=== PATIENT | male | born 1960 | race Caucasian/White ===

== ENCOUNTER 2021-07-30 21:15 | Observation (INO) | payer SELFPAY ==
[2021-07-30 21:21] VITALS: BP 163/103; PULSE 101; RESP 22; TEMP 37; O2SAT 95; BMI 44.1
--- NOTE | 2021-07-30 22:01 | XRR_ITS ---
PROCEDURE INFORMATION: Exam: XR Chest Exam date and time: 07/30/2021 10:01 PM Age: 61 years old Clinical indication: Sternal or substernal pain; Patient HX: Chest pain x today TECHNIQUE: Imaging protocol: XR of the chest. Views: 1 view. COMPARISON: CT Chest/Abdomen/Pelvis wo IV 02/21/2014 5:30:17 PM FINDINGS: Lungs: Lungs are clear bilaterally. Pleural spaces: No pleural effusion. No pneumothorax. Heart/Mediastinum: Mediastinal contours are unremarkable. Stable mild enlargement of the cardiac silhouette. Bones/joints: Unremarkable for age. XR/XR chest 1V portable [id number] IMPRESSION: 1. No acute cardiopulmonary process. 2. Incidental/nonacute findings are listed in the report.
--- NOTE | 2021-07-30 22:01 | ECG_ITS ---
[facility] Test Date: 2021-07-30 Pat Name: Jose Canales Department: Room: Gender: Male Clinical Documentation Developer: : 1960 Requested By: Seth Reis Order Number: [id number] Osmel MD: Robinson Britt M.D. Measurements Intervals [place] Rate: 88 P: 33 [place]: 163 QRS: -36 QRSD: 135 T: 30 QT: 360 QTc: 437 Interpretive Statements SINUS RHYTHM WITH SINUS ARRHYTHMIA INDETERMINATE AXIS RIGHT BUNDLE BRANCH BLOCK [120+ ms QRS DURATION, UPRIGHT V1, 40+ ms S IN I/aVL/V4/V5/V6] No previous ECG available for comparison Electronically Signed On 07-31-2021 21:27:32 CDT by Robinson Britt M.D. [email or web address] Biomedicalfranklin county memorial hospitalFanbasesouthwest general health center.[employer]/store/Om/[id number]
[2021-07-30] MEDS: aspirin 325 mg EC Tablet PO (22:30)
--- NOTE | 2021-07-30 23:20 | USR_ITS ---
PROCEDURE INFORMATION: Exam: US Abdomen, Limited; Right Upper Quadrant Exam date and time: 07/30/2021 11:20 PM Age: 61 years old Clinical indication: Abdominal pain; Additional info: Evaluate for gallbaldder disease TECHNIQUE: Imaging protocol: US abdomen. Real time ultrasound with image documentation. Limited exam focused on the right upper quadrant. COMPARISON: CT Chest/Abdomen/Pelvis wo IV 02/21/2014 5:30 PM FINDINGS: Liver: Slight inhomogeneous and increased echogenicity of the liver may indicate fatty infiltration. The liver appears borderline/mildly enlarged, with right lobe length of about 19 -20 cm. No definite/significant focal hepatic abnormality. Gallbladder: Moderate amount of nonshadowing echogenic material within the gallbladder, presumably biliary sludge. There are several more echogenic densities within the gallbladder, with probable faint acoustic shadowing, suspicious for small gallstones. The gallbladder is upper limit of normal in size, with transverse diameter up to about 4 cm. No gallbladder wall thickening or pericholecystic fluid. Common bile duct: The common bile duct is not well visualized at this time. A structure felt to represent the bile duct is mildly dilated, measuring up to 9 mm. No visible common duct stone by ultrasound. Correlation with laboratory/bilirubin levels may be helpful to determine if there is any significant biliary obstruction. Pancreas: Visible pancreas unremarkable. Much of the pancreas is obscured by bowel gas, limiting evaluation. Right kidney: Images of the right kidney show no hydronephrosis. US/US gall bladder [id number] IMPRESSION: 1. Probable cholelithiasis, with a moderate amount of biliary sludge in the gallbladder. See additional details above. 2. Suspected mild biliary tree dilation, possible common duct measures up to 9 mm. 3. Other findings discussed above.
[2021-07-30 23:21] LABS: Basophils % 0.4 %; Eosinophils # 0.1 10^3/uL (0.0-0.8); Eosinophils % 0.9 %; Hematocrit 48.5 % (42.0-52.0); Hemoglobin 16.7 g/dL (11.7-16.6); Lymphocytes # 1.9 10^3/uL (0.8-4.8); Lymphocytes % 18.4 %; Mean Corpuscular HGB Conc 34.4 g/dL (30.0-36.0); Mean Corpuscular Hemoglobin 32.1 pg (28.0-34.0); Mean Corpuscular Volume 93.3 fl (80-94); Mean Platelet Volume 10.9 fL (7.4-10.4); Monocytes # 0.7 10^3/uL (0.2-0.9); Monocytes % 6.5 %; Neutrophils # 7.72 10^3/uL (1.8-7.7); Nucleated Red Blood Cells % 0 %; Platelet Count 213 10^3/cmm (130-400); Red Cell Distribution Width 13.2 % (12.1-15.1); White Blood Count 10.6 10^3/uL (4.0-10.0)
[2021-07-30 23:38] LABS: Troponin(5th) Baseline 11 ng/L (0-15)
[2021-07-30 23:47] LABS: Anion Gap 17.5 (5-19); Blood Urea Nitrogen 19 mg/dL (8-23); Calcium 9.5 mg/dL (8.5-10.5); Carbon Dioxide 27 mmol/L (22-29); Chloride 97 mmol/L (98-107); Creatinine Clr Calc Pharmacy 146.8033; Glomerular Filtration Rate 114.6 mL/min (90-130); Glucose 121 mg/dL (65-115); Osmolality Calculated 288 mOsm/kg (285-295); Potassium 4.5 mmol/L (3.5-5.1); Sodium 137 mmol/L (136-145)
[2021-07-31] VITALS (8 sets, daily range): BP systolic 119–158; BP diastolic 79–92; PULSE 77–98; RESP 16–20; TEMP 36.5; O2SAT 92–96; BMI 44.2
--- NOTE | 2021-07-31 00:11 | W.ED.GENADLT ---
HPI - General Adult General: Chief complaint: Abdominal Pain Stated complaint: abd, back pain Time Seen by Provider: 07/30/21 22:00 History of Present Illness: HPI narrative: Patient a 61-year-old male with history of hypertension, diabetes, smoking who presents the emergency room for evaluation of acute onset right upper quadrant dull pain radiating to his left upper quadrant x4 hours. Patient first noticed pain after drinking a milkshake an hour earlier. Patient reports the pain is cramping in nature. Denies any associated chest pain, shortness breath, exertional fatigue, pleuritic chest pain, nausea/vomiting, fever/chills, other abdominal complaints or complaints. No prior history of cardiac issues. Onset: 4 hrs ago Duration:4 hrs Location: home Severity:moderate Review of Systems Narrative: Constitutional: No fever, no chills. HEENT: No vision changes CV: No chest pain, no palpitations PULM: no cough, no dyspnea. GI: +midepigastric abdominal pain, no N/V/D. : No dysuria MSKEL: No muscle pain SKIN: No new rashes, no lesions. NEURO: No headache, no focal weakness. HEME: No visible bruises PSYCH: Normal mood PFSH ED PFSH: Social History (Updated 07/31/21 @ 03:17 by Mable Chavarria RN) Smoking and tobacco status: current every day smoker Physical Exam Narrative: EXAM NARRATIVE: Head: Atraumatic Eyes: PERRL, conjunctiva without injection ENT: Mucous membrane moist NECK: Supple, ROM intact LUNGS: LCTAB, no crackles/rhonchi CV: RRR ABDOMEN: No focal TTP. NO guarding rebound, guarding, rigidity. No CVA tenderness to percussion. Neg Sandhu/Neg McBurney's point tenderness, no suprabupic tenderness to palpation. EXTREMITY: Normal ROM SKIN: No rash or erythema NEURO: Awake and alert, no focal motor deficits PSYCH: Normal mood and affect Course Vital Signs: Vital signs: Vital Signs Temperature 97.7 F 07/31/21 02:36 Pulse Rate 77 07/31/21 04:06 Respiratory Rate 20 H 07/31/21 02:37 Blood Pressure 157/79 07/31/21 02:37 Pulse Oximetry 96 07/31/21 02:37 MDM - General Adult MDM Narrative: Medical decision making narrative: 61-year-old male with history of hypertension, smoking, DM presents emergency room with acute onset of right-sided abdominal pain rating going to the left. EKG showing regular sinus rhythm at HT of [88]. RBBB. Normal axis. No ST elevations/depressions to suggest coronary occlusion. Normal MT, QRS, QT intervals. Work-up today including troponin within normal limit. Dimer within normal limit. X-ray chest not show any focal findings. Given heart score 4 and no prior workup, patient will be admitted to hospital for angina equivalent rule out. US showed cholithasis and possible CBD enlargement. Will need MRCP for further evaluation. Disposition: Admission for observation. Lab Data: Labs: Lab Results 07/30/21 07/30/21 07/30/21 23:18 23:18 23:18 WBC 10.6 10^3/uL H 10 ^3/uL (4.0-10.0) RBC 5.20 10^6/uL 10^6 /uL (4.1-5.3) Hgb 16.7 g/dL H g/dL (11.7-16.6) Hct 48.5 % % (42.0-52.0) MCV 93.3 fl fl (80-94) MCH 32.1 pg pg (28.0-34.0) MCHC 34.4 g/dL g/dL (30.0-36.0) RDW 13.2 % % (12.1-15.1) Plt Count 213 10^3/cmm 10^3 /cmm (130-400) MPV 10.9 fL H fL (7.4-10.4) Neut % (Auto) 73.0 % % Lymph % (Auto) 18.4 % % [place] % (Auto) 6.5 % % Eos % (Auto) 0.9 % % Baso % (Auto) 0.4 % % Neut # (Auto) 7.72 10^3/uL H 10 ^3/uL (1.8-7.7) Lymph # (Auto) 1.9 10^3/uL 10^3/ uL (0.8-4.8) [place] # (Auto) 0.7 10^3/uL 10^3/ uL (0.2-0.9) Eos # (Auto) 0.1 10^3/uL 10^3/ uL (0.0-0.8) Baso # (Auto) 0.0 10^3/uL 10^3/ uL (0.0-0.1) Nucleated RBC % (a uto) 0 % % Nucleated RBCs # 0.0 /100WBC /100W BC D-Dimer Sodium 137 mmol/L mmol/L (136-145) Potassium 4.5 mmol/L mmol/L (3.5-5.1) Chloride 97 mmol/L L mmol/ L (98-107) Carbon Dioxide 27 mmol/L mmol/L (22-29) Anion Gap 17.5 (5-19) BUN 19 mg/dL mg/dL (8-23) Creatinine 0.7 mg/dL mg/dL (0.7-1.2) GFR Calculation 114.6 mL/min mL/m in (90-130) Glucose 121 mg/dL H mg/dL (65-115) Calculated Osmolal ity 288 mOsm/kg mOsm/ kg (285-295) Calcium 9.5 mg/dL mg/dL (8.5-10.5) Troponin T Baselin e 11 ng/L ng/L (0-15) Troponin T 120 Min ely [place] Troponin T 07/30/21 07/31/21 23:27 01:05 WBC RBC Hgb Hct MCV MCH MCHC RDW Plt Count MPV Neut % (Auto) Lymph % (Auto) [place] % (Auto) Eos % (Auto) Baso % (Auto) Neut # (Auto) Lymph # (Auto) [place] # (Auto) Eos # (Auto) Baso # (Auto) Nucleated RBC % (a uto) Nucleated RBCs # D-Dimer 0.40 ug/mIFEU ug/ mIFEU (0-0.59) Sodium Potassium Chloride Carbon Dioxide Anion Gap BUN Creatinine GFR Calculation Glucose Calculated Osmolal ity Calcium Troponin T Baselin e Troponin T 120 Min ely [place] 10.92 ng/L ng/L (0-15) Delta Troponin T -0.08 ABS# L ABS# (0-10) Imaging Data^: Other Imaging: Radiologist's impression: [address] [id number] ReportSigned Patient: Ajay Canales #: [id number]: 1960Acct#:[id number]/Sex: 61 / MADM Date: 07/30/21Loc: ERRoom/Bed:Attending Dr: Ordering Provider/Ordering MD: Seth Reis MD Date of Service: 07/30/21 Procedure(s): XR chest 1V portable [id number] Accession Number(s): [id number] Report Number: [id number] PROCEDURE INFORMATION: Exam: XR Chest Exam date and time: 07/30/2021 10:01 PM Age: 61 years old Clinical indication: Sternal or substernal pain; Patient HX: Chest pain x today TECHNIQUE: Imaging protocol: XR of the chest. Views: 1 view. COMPARISON: CT Chest/Abdomen/Pelvis wo IV 02/21/2014 5:30:17 PM FINDINGS: Lungs: Lungs are clear bilaterally. Pleural spaces: No pleural effusion. No pneumothorax. Heart/Mediastinum: Mediastinal contours are unremarkable. Stable mild enlargement of the cardiac silhouette. Bones/joints: Unremarkable for age. XR/XR chest 1V portable [id number] IMPRESSION: 1. No acute cardiopulmonary process. 2. Incidental/nonacute findings are listed in the report. Dictated By:Sonya Crowe MDSigned By:Sonya Crowe MDSigned Date/Time:07/30/21/ [address] [id number] ReportSigned Patient: Ajay Canales #: [id number]: 1960Acct#:[id number]/Sex: 61 / MADM Date: 07/31/21Loc: CSURoom/Bed: 106-1Attending Dr: Salina Nice MD Ordering Provider/Ordering MD: Seth Reis MD Date of Service: 07/30/21 Procedure(s): US gall bladder [id number] Accession Number(s): [id number] Report Number: [id number] PROCEDURE INFORMATION: Exam: US Abdomen, Limited; Right Upper Quadrant Exam date and time: 07/30/2021 11:20 PM Age: 61 years old Clinical indication: Abdominal pain; Additional info: Evaluate for gallbaldder disease TECHNIQUE: Imaging protocol: US abdomen. Real time ultrasound with image documentation. Limited exam focused on the right upper quadrant. COMPARISON: CT Chest/Abdomen/Pelvis wo IV 02/21/2014 5:30 PM FINDINGS: Liver: Slight inhomogeneous and increased echogenicity of the liver may indicate fatty infiltration. The liver appears borderline/mildly enlarged, with right lobe length of about 19 -20 cm. No definite/significant focal hepatic abnormality. Gallbladder: Moderate amount of nonshadowing echogenic material within the gallbladder, presumably biliary sludge. There are several more echogenic densities within the gallbladder, with probable faint acoustic shadowing, suspicious for small gallstones. The gallbladder is upper limit of normal in size, with transverse diameter up to about 4 cm. No gallbladder wall thickening or pericholecystic fluid. Common bile duct: The common bile duct is not well visualized at this time. A structure felt to represent the bile duct is mildly dilated, measuring up to 9 mm. No visible common duct stone by ultrasound. Correlation with laboratory/bilirubin levels may be helpful to determine if there is any significant biliary obstruction. Pancreas: Visible pancreas unremarkable. Much of the pancreas is obscured by bowel gas, limiting evaluation. Right kidney: Images of the right kidney show no hydronephrosis. US/US gall bladder [id number] IMPRESSION: 1. Probable cholelithiasis, with a moderate amount of biliary sludge in the gallbladder. See additional details above. 2. Suspected mild biliary tree dilation, possible common duct measures up to 9 mm. 3. Other findings discussed above. Dictated By:Donald Castaneda MDSigned By:Donald Castaneda MDSigned Date/Time:07/31/21227DD/ 6 Discharge Plan Discharge Patient Disposition: Admitted As Inpatient Admit Provider: Salina Nice Clinical Impression: Abdominal pain Condition: Stable Coding Level of Care Code ED Cloth Finishing Range Back Tender for Thelma Florian
[2021-07-31 01:43] LABS: Troponin 5 2HR 10.92 ng/L (0-15); Troponin 5 2HR Delta -0.08 ABS# (0-10)
--- NOTE | 2021-07-31 03:04 | PC.NURSE ---
Patient states that he does not know why he is on Bumex. Patient states he often forgets to take his medications at home. Patient does say that he has a history of diabetes (does not take insulin at home and does not check blood sugars at home) and high blood pressure.
--- NOTE | 2021-07-31 03:11 | PC.NURSE ---
Patient states that his daughter (Yary Taylor) has power of cost specialist and DNR paperwork for him. Patient states that he wants to be a full code at this time.
[2021-07-31] MEDS: heparin 5,000 unit/mL INJ 1 mL 5000 UNIT SUBCUT (03:30)
--- NOTE | 2021-07-31 04:01 | ECG_ITS ---
[facility] Test Date: 2021-07-31 Pat Name: Jose Canales Department: Room: 106 Gender: Male Medical Field Representative: : 1960 Requested By: Seth Reis Order Number: [id number] Osmel MD: Robinson Britt M.D. Measurements Intervals [place] Rate: 77 P: 47 AR: 174 QRS: -22 QRSD: 142 T: 36 QT: 391 QTc: 445 Interpretive Statements SINUS RHYTHM WITH SINUS ARRHYTHMIA BORDERLINE LEFT AXIS DEVIATION [QRS AXIS < -20] RIGHT BUNDLE BRANCH BLOCK [120+ ms QRS DURATION, UPRIGHT V1, 40+ ms S IN I/aVL/V4/V5/V6] Compared to ECG 07/30/2021 21:29:20 Indeterminate axis no longer present Electronically Signed On 07-31-2021 21:46:26 CDT by Robinson Britt M.D. [email or web address] ([email or web address] medical centerJogliclinton memorial hospital.[employer]/store/OM/[id number]/[id number]
--- NOTE | 2021-07-31 04:16 | PM.HP ---
Providers/Chief Complaint Admitting Physician: Salina Nice Chief Complaint: abd, back pain History of Present Illness Jose Canales is a 61 year old male with past medical history of diabetes mellitus who is presenting to ER with right upper quadrant pain.This was brought on shortly after eating a fatty meal. Noted similar type of pain in the past exacerbated by food. Previously noted to have a normal stress test at an out of state hospital which as far as he can remember was negative. Upon arrival to ER his pain had resolved. No associated respiratory distress, diaphoresis or substernal chest pain. No recent fever, chills, nausea or vomiting. Work up on arrival showed a CBC-> 10.6<16.7/48.5<213 and BMP -> 137/4.5/97/27/19/0.7<121. Troponin T trend showed 11 at baseline, 10.92 at 120 min and 15.47 at 6hr. Denied any recurrence of chest pain. Imaging studies included a chest X-ray which did not show any acute abnormality. Gallbladder US which showed probable cholelithiasis, with a moderate amount of biliary sludge in the gallbladder and suspected mild biliary tree dilation possible common duct measuring up to 9mm in size. Lengthy discussion with patient regarding need for stress test and if negative general surgery consult. Patient opted to discharge home and follow up outpatient for stress test, cardiology and general surgery consult. This was ordered for outpatient. Patient was then discharged in stable condition. Agreed to return to hospital if any recurrence. Verbalized understanding. Review of Systems General: Reports: 10 or more systems reviewed and unremarkable except in HPI and below Medications/Allergies Home Medications Medication Instructions Recorded Confirmed Last Taken Type aspirin 81 mg PO DAILY #30 cap 07/31/21 08/07/21 Unknown Rx bumetanide 0.5 mg PO BID 07/31/21 08/07/21 1 Day Ago History ~07/30/21 metformin 500 mg PO BID 07/31/21 08/07/21 1 Day Ago History ~07/30/21 Allergies Allergy/AdvReac Type Severity Reaction Status Date / Time piperacillin [From Zosyn] Allergy ALGY-Bliste Verified 08/07/21 14:21 r tazobactam [From Zosyn] Allergy ALGY-Bliste Verified 08/07/21 14:21 r PFSH Acute PFSH: Medical History Cellulitis Right lower extremity Diabetes mellitus, type II Hypertension Surgical History History of appendectomy as a child Family History Father Diabetes Mother Diabetes Brother Diabetes Social History Smoking and tobacco status: current every day smoker Alcohol intake: former Vitals/I&O/Wt Last Vital Signs Temp 97.7 F 07/31/21 02:36 Pulse 77 07/31/21 04:06 Resp 20 H 07/31/21 02:37 BP 157/79 07/31/21 02:37 Pulse Ox 96 07/31/21 02:37 07/30/21 07/30/21 07/31/21 14:59 22:59 06:59 Intake Total 50 / 50 Balance 50 / 50 Weight last 48 hrs Weight 132.041 kg Weight 131.542 kg Physical Exam Narrative: EXAM NARRATIVE: General : Alert awake oriented x 3, NAD HEENT : Grossly unremarkable CVS: RRR, No murmur rubs or gallops Chest : CTABL ABD: Soft, ND, ND, negative murphys sign : Deferred Ext: No edema, FROM x 4 Data : 07/30/21 23:18 07/30/21 23:18 A&P Assessment and plan (1) Abdominal pain: Etiology biliary colic vs cardiac US abd-> Cholilithiasis with CBD possibly measuring up to 9 mm Cardiac enzymes - No significant up-trend Chest pain free Patient wanting to be discharged. Outpatient arrangement for nuclear stress test Outpatient general surgery consult to eval Gallbladder Discharge orderes placed. Status: Resolved Attestations Medical Necessity Statement*: Anticipate less than 2 midnight stay in hospital for eval and treatment Time Spent in Patient Care: Greater than 35 minutes (>than 50% of time spent in counselling and/or direct pt care on unit). Coding Level of Care Code Acute Felt Dyeing Machine Tender for Thelma Florian Diagnoses Abdominal pain R10.9
[2021-07-31 06:26] LABS: Troponin 5 6HR 15.47 ng/L (0-15); Troponin 5 6HR Delta 4.47 ng/L (0-12)
[2021-07-31 06:34] LABS: Glucose Point of Care 131 mg/dL (70-110)
--- NOTE | 2021-07-31 07:02 | P.DS_ITS ---
Discharge Providers Date of Admission: 07/31/21 02:25 Date of Discharge: 07/31/2021 Attending Provider at Admission: Salina Nice Attending Provider at Discharge: Salina Nice Diagnoses at Discharge Discharge Diagnosis (1) Abdominal pain: Status: Resolved Reason for Visit Reason for Visit: abd, back pain Hospital Course Hospital Course 61 year old male with past medical history of diabetes mellitus who is presenting to ER with right upper quadrant pain.This was brought on shortly after eating a fatty meal. Noted similar type of pain in the past exacerbated by food. Previously noted to have a normal stress test at an out of state hospital which as far as he can remember was negative. Upon arrival to ER his pain had resolved. No associated respiratory distress, diaphoresis or substernal chest pain. No recent fever, chills, nausea or vomiting. Work up on arrival showed a CBC-> 10.6<16.7/48.5<213 and BMP -> 137/4.5/97/27/19/0.7<121. Troponin T trend showed 11 at baseline, 10.92 at 120 min and 15.47 at 6hr. Denied any recurrence of chest pain. Imaging studies included a chest X-ray which did not show any a cute abnormality. Gallbladder US which showed probable cholelithiasis, with a moderate amount of biliary sludge in the gallbladder and suspected mild biliary tree dilation possible common duct measur ing up to 9mm in size. Lengthy discussion with patient regarding need for stress test and if negative general surgery consult. Patient opted to discharge home and follow up outpatient for stress test, cardiology and general surgery consult. This was ordered for outpatient. Patient was then discharged in stable condition. Agreed to return to hospital if any recurrence. Verbalized understanding. Physical Exam Narrative: EXAM NARRATIVE: General : Alert awake oriented x 3, NAD HEENT : Grossly unremarkable CVS: RRR, No murmur rubs or gallops Chest : CTABL ABD: Soft, ND, ND, negative murphys sign : Deferred Ext: No edema, FROM x 4 Discharge Data Data Completed and Pending: Completed Studies During Hospitalization Category Date Time Status XR chest 1V donaldo ble [id number] Urgent Exams 07/30/21 22:01 Completed US gall bladder 7 6705 Urgent Ultrasound 07/30/21 23:20 Completed Vitals: Last Vital Signs Temp 97.7 F 09/29/21 02:36 Pulse 90 07/31/21 08:50 Resp 20 H 07/31/21 08:50 BP 148/86 07/31/21 08:50 Pulse Ox 92 07/31/21 08:50 Discharge Plan Discharge Patient Disposition: Home Condition: Stable Prescriptions: New aspirin 81 mg capsule 81 mg PO DAILY Qty: 30 RF: 0 Continued bumetanide 0.5 mg Tablet 0.5 mg PO BID RF: 0 metformin 500 mg Tablet 500 mg PO BID RF: 0 Discontinued amlodipine 5 mg Tablet 5 mg PO DAILY RF: 0 Discharge Orders: Discharge Order (Routine); Ordered 07/31/21 Ordered By: Salina Nice Referrals: Elsie Hyman [Other] - 08/05/21 10:00 am Carlos Cardenas MD [Physician] - 7-10 days (gallbladder workup .you have an ap pointment with dr cardenas on thursdayaugust 09 at 10:30.the phone number is [phone]) Ainsley Armijo MD [Physician] - 1-3 days (stress test/cardiac workup.you have an appointment with dr henderson (inspector shells) on aug 01 at 2:30 in [facility] care [facility]. [phone].you are scedualed for a cardiac stress test on thursdayaugust 02 at 11:00.please go to the main hospital entrance for check in.) Discharge Diet: Diabetic Discharge Activity: Resume usual activity Patient Instructions: Aspirin (By mouth), Cardiac Stress Test (GEN), Eliza cystitis (DC), Opioid Safety Activity Restrictions/Additional Instructions: Return to ER if any recurrence of pain or new symptoms. Discharge Attestations Time Spent in Discharge Care*: greater than 30 min Specific Discharge Activities: educating patient, discussing with manager case management/social workers/dc planners, documenting/other paperwork and evaluating patient/reviewing data Status at Discharge: Cognitive status at discharge: cognitively intact , Behavioral status at discharge: cooperative , Functional status at discharge: independent ambulation Overall status at discharge: patient is back to baseline Quality Metrics Clinical Quality Measures During this hospital stay, did patient experience: None Coding Level of Care Code Acute Chg FW DC note Diagnoses Abdominal pain R10.9
[2021-07-31] MEDS: pantoprazole DR 40 mg Tablet PO (07:53)
[2021-07-31] MEDS: bumetanide 1 mg Tablet 0.5 MG PO (07:53)
[2021-07-31] MEDS: amlodipine 5 mg Tablet PO (07:53)
--- NOTE | 2021-07-31 09:10 | PC.NURSE ---
discharge instructions given and explained...including instructions for out-pt stress test.pt verb understanding of instructions.discharged ambulatory to exit.
--- NOTE | 2021-07-31 09:46 | PC.SOCIAL ---
called pt and let him know about his follow up appointment scheduled with Elsie Hyman on 08-05 @ 1000
--- NOTE | 2021-07-31 15:27 | PC.RESP ---
sent information on smoking cessation
--- NOTE | 2021-08-01 09:03 | PC.SOCIAL ---
discharge follow up call made, spoke with patient. patient is taking aspirin 81 mg daily, along with his regular home medications. patient is aware and had stopped taking amlodipine at this time. patient is aware of follow up appointments with pcp, Dr. Cardenas, and Dr. Armijo. Patient denies any questions or concerns.
== END 2021-07-31 09:11 | disposition home or self-care (01) ==
LOC: ER 07-31 01:55 → CSU 07-31 02:25
PROVIDERS: Admitting Provider Hospitalist; Emergency Provider Emergency Medicine; Visit Provider Hospitalist
DX: R10.11 Right upper quadrant pain (principal); E11.9 Type 2 diabetes mellitus without complications; I10 Essential (primary) hypertension; Z83.3 Family history of diabetes mellitus; F17.210 Nicotine dependence, cigarettes, uncomplicated
CPT/HCPCS: 36415; 36416; 71045; 76705; 80048; 82962; 84484; 85025; 85378; 93005; 96372; 96374; 99285; G0378; J1644

== ENCOUNTER 2021-08-02 10:56 | Outpatient (CLI) | payer SELFPAY ==
[2021-08-02 11:48] VITALS: BMI 46.2
--- NOTE | 2021-08-02 12:45 | NMCV_ITS ---
NM shy perf SPECT r/s* [id number] Jose Canales Age: 61 Gender: M : 1960 Exam Date: 08/02/2021 13:29 Ordering Phys: Salina Nice MD Technologist: ANNABELLE Guzman Exam Location: [facility] Indications: CHEST PAIN STRESS TEST Please see separate stress test report in [facility] for full findings IMAGE PROTOCOL Rest/Stress 1 Lexiscan Day Radiopharmaceutical Dose (mCi) Administration Site Administered by Rest: Tc-99m 10.7 IV ANNABELLE Guzman Sestamibi Stress:Tc-99m 33.0 IV ANNABELLE Scott Sestamibi Rest: 02-Aug-2021 60 Discovery 630 Stress: 02-Aug-2021 30 Discovery 630 0.4mg Lexiscan. Supine position only as patient was unable to lay prone. SPECT RESULTS Technical Quality: Excellent Raw Data Analysis: Normal Image Corrections: No attenuation or motion correction applied Summed Stress Score: 0 Summed Rest Score: 1 Summed Difference Score: 0 PERFUSION FINDINGS SPECT images demonstrate homogeneous tracer distribution throughout the myocardium. FUNCTIONAL RESULTS (calculated via Gated SPECT) Stress Image LV EF (%): 61 Stress EDV (mL):139 TID: 1.06 Stress ESV (mL):54 FUNCTIONAL FINDINGS: There is normal left ventricular systolic function. IMPRESSIONS 1. Normal myocardial perfusion imaging with no evidence of ischemia 2. LV systolic function is normal Micah Mazariegos MD (Electronically Signed) Final Date: 05 August 2021 10:07 S
[2021-08-02] MEDS: regadenoson 0.4 Mg/5 ml Syringe IVP (13:07)
[2021-08-02 13:24] VITALS: BP 136/99; PULSE 96
--- NOTE | 2021-08-02 13:45 | ECG_ITS ---
[facility] Test Date: 2021-08-02 Pat Name: Jose Canales Department: Room: Gender: Male Technical Communicator: : 1960 Requested By: Salina Nice Order Number: [id number] Osmel MD: Micah Mazariegos M.D. Interpretive Statements NAME OF STUDY: LEXISCAN SESTAMIBI STRESS TEST INDICATION: [abdominal pain, ] Procedure: At the baseline, the blood pressure was 156/91mmHg with a heart rate of 82 bpm. The electrocardiogram showed normal sinus rhythm, incomplete right bundle branch block, with normal ST and T's. The Lexiscan was infused over a period of 20 seconds. A total of 0.4 mg of Lexiscan was infused. The stress phase was continued for a total of 5 minutes. Heart rate was at the end of stress phase was 89 bpm and a blood pressure of 130/83 mmHg. The EKG at the peak infusion revealed since normal sinus rhythm with no significant ST-T wave changes. Sestamibi was injected 20 seconds after the Lexiscan infusion. Blood pressure at the end of recovery phase was 136/99 mmHg with a heart rate of 101 bpm. Conclusion: 1. Normal EKG response to Lexiscan infusion 2. No Lexiscan induced chest pain or cardiac arrhythmia. 3. Normal blood pressure and heart rate response. 4. Sestamibi/sestamibi perfusion scan pending; see separate report. Electronically Signed On 09-09-2021 10:12:13 SHIP PROPELLER FINISHER by Micah Mazariegos M.D. [id number]
== END 2021-08-02 10:57 | disposition home or self-care (01) ==
PROVIDERS: PCP Nurse Practitioner Family; Visit Provider Hospitalist
DX: R07.9 Chest pain, unspecified (principal); R10.9 Unspecified abdominal pain; Z79.899 Other long term (current) drug therapy; R06.02 Shortness of breath
CPT/HCPCS: 78452; 93017; A9500; J2785

== ENCOUNTER 2022-10-11 03:10 | Emergency (ER) | payer SELFPAY ==
[2022-10-11 03:32] VITALS: BP 168/78; PULSE 120; RESP 18; TEMP 36.8; O2SAT 92; BMI 47.0
[2022-10-11 04:27] LABS: Urine Appearance SL Hazy (CLEAR); Urine Color Yellow (Yellow); pH Urine 6 (5-7)
[2022-10-11 04:28] LABS: Add Urine Microscopic? YES; Bilirubin Urine Neg (Negative); Blood Urine 3+ (Negative); Glucose Urine UA Norm (Normal); Ketones Urine Negative (Negative); Leukocyte Esterase Urine Trace (Negative); Nitrate Urine Negative (Negative); Protein Urine 1+ (Negative); Urobilinogen Urine Neg (Negative)
[2022-10-11 04:29] LABS: Bacteria Urine 2+ /hpf; RBC Urine 50-80 /hpf (0-2)
[2022-10-11 04:30] LABS: Add Urine Culture? Yes; Other Casts Urine WBC CAST /lpf
--- NOTE | 2022-10-11 04:35 | ECG_ITS ---
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 Measurements Intervals [place] Rate: 109 P: 30 [place]: 169 QRS: -28 QRSD: 140 T: 40 QT: 339 QTc: 458 Interpretive Statements SINUS TACHYCARDIA BORDERLINE LEFT AXIS DEVIATION [QRS AXIS < -20] RIGHT BUNDLE BRANCH BLOCK [120+ ms QRS DURATION, UPRIGHT V1, 40+ ms S IN I/aVL/V4/V5/V6] Compared to ECG 07/31/2021 05:17:00 Sinus rhythm no longer present Sinus arrhythmia no longer present Electronically Signed On 10-11-2022 16:42:24 WATER POLLUTION CONTROL INSPECTOR by Krishna Landin M.D. [id number]
--- NOTE | 2022-10-11 04:35 | XRR_ITS ---
PROCEDURE INFORMATION: Exam: XR Chest Exam date and time: 10/11/2022 4:46 AM Age: 62 years old Clinical indication: Shortness of breath; Patient HX: SOB. Tachycardic with mild hypoxia on monitor. TECHNIQUE: Imaging protocol: Radiologic exam of the chest. Views: 1 view. COMPARISON: CR XR chest 1V portable [id number] 07/30/2021 10:12 PM FINDINGS: Lungs: Mild COPD with minimal lung base atelectasis. Pleural spaces: Unremarkable. No pleural effusion. No pneumothorax. Heart/Mediastinum: The heart remains enlarged. Bones/joints: A few old right rib deformities. XR/XR chest 1V portable [id number] IMPRESSION: Stable chest with no acute process noted.
--- NOTE | 2022-10-11 04:46 | ED_ITS ---
Documented by User: Avis Aragon MD 10/11/22 05:31 HPI - Back Pain/Injury General: Chief Complaint: Back Pain/Injury Stated Complaint: kidney pain Time Seen by Provider: 10/11/22 04:35 History of Present Illness: Associated symptoms: Reports abdominal pain; Deny chills or fever(s) Review of Systems Const: Denies: fever(s), chills, body aches or change in appetite Eyes: Denies: blurry vision or eye discomfort ENMT: Denies: throat pain or dental pain Card: Denies: chest pain Resp: Denies: dyspnea GI: Reports: abdominal pain : Reports: flank pain Musc: Denies: neck pain or back pain Skin/Breast: Denies: rash Neuro: Denies: headache(s) Psych: Denies: depression Chet/Lymph: Denies: easy bruising All/Imm: Denies: urticaria PFSH ED PFSH: Medical History Cellulitis Right lower extremity Diabetes mellitus, type II Hypertension Nephrolithiasis Surgical History History of appendectomy as a child History of colonoscopy within 5 yrs Family History Father Diabetes Mother Diabetes Brother Diabetes Social History Alcohol intake: former Physical Exam Const: COMMON NORMALS: no acute distress, patient oriented x3 and healthy appearing HENMT: COMMON NORMALS: normocephalic and atraumatic HEAD & SCALP: normocephalic and atraumatic Eye: COMMON NORMALS: Equal, round and reactive pupils present and EOMs intact bilaterally PUPIL: Yes Equal, round and reactive pupils present Neck/C-Spine: COMMON NORMALS: full ROM and supple Chest: COMMONS NORMALS: normal inspection of the chest and normal palpation of entire chest wall Resp: COMMON NORMALS: normal respiratory effort, No retractions, No use of accessory muscles and clear to auscultation bilaterally AUSCULTATION: clear to auscultation bilaterally Cardio: COMMON NORMALS: regular rhythm and No murmurs present (Cardio) RATE: tachycardic RHYTHM: regular rhythm GI: COMMON NORMALS: Normal to inspection, nondistended, normoactive bowel sounds present, Soft to palpation, non-tender and no masses PALPATION: Yes Soft to palpation Extremity: COMMON NORMALS: normal to inspection and full ROM Neuro: COMMON NORMALS: patient oriented x3, moves all extremities and no focal motor deficits Psych: COMMON NORMALS: mental status grossly normal, Normal thought process present and cooperative THOUGHT PROCESS: Normal thought process present Skin: COMMON NORMALS: no rashes or lesions noted and no wounds GENERAL SKIN EXAM: no rashes or lesions noted Course Vital Signs: Vital signs: Vital Signs Temperature 98.2 F 10/11/22 03:32 Pulse Rate 119 H 10/11/22 06:44 Respiratory Rate 16 10/11/22 06:44 Blood Pressure 161/97 10/11/22 06:44 Pulse Oximetry 94 10/11/22 06:44 Oxygen Delivery Me thod 10/11/22 06:44 Oxygen Flow Rate 2 10/11/22 06:44 MDM - Back Pain/Injury Labs 10/11/22 05:13 10/11/22 05:13 Radiology Impressions Chest X-Ray 10/11/22 04:35 IMPRESSION: Stable chest with no acute process noted. Chest/Abdomen/Pelvis CT 10/11/22 05:27 IMPRESSION: 1. No PE or focal pneumonia identified. No definite acute finding. 2. Large heart with slight venous prominence but no evidence of overt CHF. 3. Chronic findings above. IMPRESSION: 1. No small bowel obstruction, abscess or free air. 2. Markedly enlarged prostate with possible cystitis. Advise correlation. 3. Large, fatty liver and other chronic findings above. COMMENTS: Consistent with the [employer]'s Incidental Findings Committee white paper (J Am Seymour Radiol 2018): Any incidental renal lesion less than 1 cm or classified as too small to characterize, or any incidental cystic renal lesion characterized as simple-appearing, is likely benign. No follow-up imaging is recommended for these lesions per consensus recommendations based on imaging criteria. Laboratory Results WBC 17.0 10^3/uL (4.0-10.0) H 10/11/22 05:13 RBC 5.30 10^6/uL (4.1-5.3) 10/11/22 05:13 Hgb 16.5 g/dL (11.7-16.6) 10/11/22 05:13 Hct 47.8 % (42.0-52.0) 10/11/22 05:13 MCV 90.2 fl (80-94) 10/11/22 05:13 MCH 31.1 pg (28.0-34.0) 10/11/22 05:13 MCHC 34.5 g/dL (30.0-36.0) 10/11/22 05:13 RDW 12.5 % (12.1-15.1) 10/11/22 05:13 Plt Count 212 10^3/cmm (130-400) 10/11/22 05:13 MPV 10.6 fL (7.4-10.4) H 10/11/22 05:13 Neut % (Auto) 83.3 % 10/11/22 05:13 Lymph % (Auto) 9.3 % 10/11/22 05:13 Coles % (Auto) 6.8 % 10/11/22 05:13 Eos % (Auto) 0.1 % 10/11/22 05:13 Baso % (Auto) 0.1 % 10/11/22 05:13 Neut # (Auto) 14.19 10^3/uL (1.8-7.7) H 10/11/22 05:13 Lymph # (Auto) 1.6 10^3/uL (0.8-4.8) 10/11/22 05:13 Coles # (Auto) 1.2 10^3/uL (0.2-0.9) H 10/11/22 05:13 Eos # (Auto) 0.0 10^3/uL (0.0-0.8) 10/11/22 05:13 Baso # (Auto) 0.0 10^3/uL (0.0-0.1) 10/11/22 05:13 Nucleated RBC % (auto) 0 % 10/11/22 05:13 Nucleated RBCs # 0.0 /100WBC 10/11/22 05:13 D-Dimer 0.67 ug/mIFEU (0-0.59) H 10/11/22 05:52 Sodium 136 mmol/L (136-145) 10/11/22 05:13 Potassium 4.3 mmol/L (3.5-5.1) 10/11/22 05:13 Chloride 99 mmol/L (98-107) 10/11/22 05:13 Carbon Dioxide 25 mmol/L (22-29) 10/11/22 05:13 Anion Gap 16.3 (5-19) 10/11/22 05:13 BUN 12 mg/dL (8-23) 10/11/22 05:13 Creatinine 0.8 mg/dL (0.7-1.2) 10/11/22 05:13 GFR Calculation 98.0 mL/min (90-130) 10/11/22 05:13 Glucose 142 mg/dL (65-115) H 10/11/22 05:13 Calculated Osmolality 284 mOsm/kg (285-295) L 10/11/22 05:13 Calcium 9.0 mg/dL (8.5-10.5) 10/11/22 05:13 Total Bilirubin 0.7 mg/dL (0.15-1.2) 10/11/22 05:13 AST 15 U/L (0-40) 10/11/22 05:13 ALT 18 U/L (0-41) 10/11/22 05:13 Alkaline Phosphatase 68 U/L (40-130) 10/11/22 05:13 Creatine Kinase 140 U/L (39-308) 10/11/22 05:52 Troponin T Baseline 22 ng/L (0-15) H 10/11/22 05:52 NT-Pro-B Natriuret Pep 34 pg/mL (0-125) 10/11/22 05:13 Total Protein 7.5 g/dL (6.6-8.7) 10/11/22 05:13 Albumin 4.4 g/dL (3.5-5.2) 10/11/22 05:13 Globulin 3.1 g/dL (1.3-4.6) 10/11/22 05:13 Urine Color Yellow (Yellow) 10/11/22 03:39 Urine Appearance Sl hazy (CLEAR) A 10/11/22 03:39 Urine pH 6 (5-7) 10/11/22 03:39 Ur Specific [place] 1.010 (1.005-1.030) 10/11/22 03:39 Urine Protein 1+ (Negative) H 10/11/22 03:39 Urine Glucose (UA) Norm (Normal) 10/11/22 03:39 Urine Ketones Negative (Negative) 10/11/22 03:39 Urine Blood 3+ (Negative) H 10/11/22 03:39 Urine Nitrate Negative (Negative) 10/11/22 03:39 Urine Bilirubin Neg (Negative) 10/11/22 03:39 Urine Urobilinogen Neg mg/dL (Negative) 10/11/22 03:39 Ur Leukocyte Esterase Trace (Negative) H 10/11/22 03:39 Urine RBC 50-80 /hpf (0-2) H 10/11/22 03:39 Urine WBC 10-15 /hpf (0-5) H 10/11/22 03:39 Ur Squamous Epith Cells 5-10 /hpf (0-5) H 10/11/22 03:39 Amorphous Sediment Not Reportable 10/11/22 03:39 Urine Bacteria 2+ /hpf (NONE) H 10/11/22 03:39 Other Casts Wbc cast /lpf 10/11/22 03:39 EKG Data EKG 1: I personally reviewed and interpreted this EKG as follows: EKG interpretation date: 10/11/22 EKG interpretation time: 05:21 Interpretation: sinus tach hr [address] or t wave abnormalities qrs 140 qtc 403 Discharge Plan Discharge Patient Disposition: Home Clinical Impression: Acute cystitis, Bilateral flank pain, Enlarged prostate Condition: Stable Prescriptions: New levofloxacin 500 mg tablet 500 mg PO DAILY 7 Days Qty: 7 0RF ondansetron HCl 4 mg tablet 4 mg PO Q8H PRN (Reason: nausea and vomiting) Qty: 15 0RF Ultram 50 mg tablet 50 mg PO Q6H PRN (Reason: pain) Qty: 15 0RF No Action amlodipine 5 mg tablet 5 mg PO DAILY bumetanide 0.5 mg Tablet 0.5 mg PO BID metformin 500 mg Tablet 500 mg PO BID aspirin 81 mg capsule 81 mg PO DAILY Qty: 30 0RF Discharge Orders: Discharge ED (Routine); Ordered 10/11/22 Ordered By: Antonio Ruiz Referrals: Elsie Talavera [employer]PER[employer] [Primary Care Provider] - 4-7 days Discharge Diet: Usual diet Discharge Activity: Resume usual activity Patient Instructions: Enlarged Prostate (BPH) (ED), Opioid Safety, Pain M anagement, Urinary Tract Infection - Men Activity Restrictions/Additional Instructions: Please follow-up with your primary care doctor in 2 to 3 days,, take medications as prescribed and please increase your water consumption please return the interim if any of your symptoms persist or worse. Sign Out Sign Out Data: Patient Sign Out occurred on 10/13/22 at 06:52. Patient's care was discussed, and care was transferred from to Marco Antonio Wade DO. Coding Level of Care Code ED Cashier Payments Received for Chg Fwd Exam Comprehensive Documented by User: Antonio Ruiz 10/11/22 08:40 HPI - Back Pain/Injury General: Chief Complaint: Back Pain/Injury Stated Complaint: kidney pain Time Seen by Provider: 10/11/22 04:35 History of Present Illness: this will need to be filled out by Dr. Aragon as he initiated care and did the initial history and physical [facility] ED PFSH: Medical History Cellulitis Right lower extremity Diabetes mellitus, type II Hypertension Nephrolithiasis Surgical History History of appendectomy as a child History of colonoscopy within 5 yrs Family History Father Diabetes Mother Diabetes Brother Diabetes Social History Alcohol intake: former Course Vital Signs: Vital signs: Vital Signs Temperature 98.2 F 10/11/22 03:32 Pulse Rate 119 H 10/11/22 06:44 Respiratory Rate 16 10/11/22 06:44 Blood Pressure 161/97 10/11/22 06:44 Pulse Oximetry 94 10/11/22 06:44 Oxygen Delivery Me thod 10/11/22 06:44 Oxygen Flow Rate 2 10/11/22 06:44 MDM - Back Pain/Injury Medical Decision Making This is a 62-year-old male signed out to myself Dr. Ruiz from Dr. Aragon at 0600 he presented to the ER department with bilateral flank pain and back pain. 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 The patient is currently waiting on CT imaging of the chest abdomen pelvis to further rule out additional concerns he was found to be tachycardic upon his arrival with slightly elevated respiratory rate afebrile. We will continue to follow. This patient was found to have urinary tract infection with bilateral prostate enlargement acute cystitis this can attribute to his white blood cell count elevation as well as a urinalysis results CT imaging only confirm some mild cystitis otherwise unremarkable patient we will provide a dose of IV Levaquin due to his history of Jose Chavarria's multiple antibiotic allergies. He reports he has had no issues with this in the past anticipate discharge home after IV antibiotics given in the ER patient was advised to further follow-up with primary care in 2 to 3 days in which she was advised to return the interim if any of his symptoms persist or worse. Labs 10/11/22 05:13 10/11/22 05:13 Radiology Impressions Chest X-Ray 10/11/22 04:35 IMPRESSION: Stable chest with no acute process noted. Chest/Abdomen/Pelvis CT 10/11/22 05:27 IMPRESSION: 1. No PE or focal pneumonia identified. No definite acute finding. 2. Large heart with slight venous prominence but no evidence of overt CHF. 3. Chronic findings above. IMPRESSION: 1. No small bowel obstruction, abscess or free air. 2. Markedly enlarged prostate with possible cystitis. Advise correlation. 3. Large, fatty liver and other chronic findings above. COMMENTS: Consistent with the [place] [employer]'s Incidental Findings Committee white paper (J Am Seymour Radiol 2018): Any incidental renal lesion less than 1 cm or classified as too small to characterize, or any incidental cystic renal lesion characterized as simple-appearing, is likely benign. No follow-up imaging is recommended for these lesions per consensus recommendations based on imaging criteria. Laboratory Results WBC 17.0 10^3/uL (4.0-10.0) H 10/11/22 05:13 RBC 5.30 10^6/uL (4.1-5.3) 10/11/22 05:13 Hgb 16.5 g/dL (11.7-16.6) 10/11/22 05:13 Hct 47.8 % (42.0-52.0) 10/11/22 05:13 MCV 90.2 fl (80-94) 10/11/22 05:13 MCH 31.1 pg (28.0-34.0) 10/11/22 05:13 MCHC 34.5 g/dL (30.0-36.0) 10/11/22 05:13 RDW 12.5 % (12.1-15.1) 10/11/22 05:13 Plt Count 212 10^3/cmm (130-400) 10/11/22 05:13 MPV 10.6 fL (7.4-10.4) H 10/11/22 05:13 Neut % (Auto) 83.3 % 10/11/22 05:13 Lymph % (Auto) 9.3 % 10/11/22 05:13 Coles % (Auto) 6.8 % 10/11/22 05:13 Eos % (Auto) 0.1 % 10/11/22 05:13 Baso % (Auto) 0.1 % 10/11/22 05:13 Neut # (Auto) 14.19 10^3/uL (1.8-7.7) H 10/11/22 05:13 Lymph # (Auto) 1.6 10^3/uL (0.8-4.8) 10/11/22 05:13 Coles # (Auto) 1.2 10^3/uL (0.2-0.9) H 10/11/22 05:13 Eos # (Auto) 0.0 10^3/uL (0.0-0.8) 10/11/22 05:13 Baso # (Auto) 0.0 10^3/uL (0.0-0.1) 10/11/22 05:13 Nucleated RBC % (auto) 0 % 10/11/22 05:13 Nucleated RBCs # 0.0 /100WBC 10/11/22 05:13 D-Dimer 0.67 ug/mIFEU (0-0.59) H 10/11/22 05:52 Sodium 136 mmol/L (136-145) 10/11/22 05:13 Potassium 4.3 mmol/L (3.5-5.1) 10/11/22 05:13 Chloride 99 mmol/L (98-107) 10/11/22 05:13 Carbon Dioxide 25 mmol/L (22-29) 10/11/22 05:13 Anion Gap 16.3 (5-19) 10/11/22 05:13 BUN 12 mg/dL (8-23) 10/11/22 05:13 Creatinine 0.8 mg/dL (0.7-1.2) 10/11/22 05:13 GFR Calculation 98.0 mL/min (90-130) 10/11/22 05:13 Glucose 142 mg/dL (65-115) H 10/11/22 05:13 Calculated Osmolality 284 mOsm/kg (285-295) L 10/11/22 05:13 Calcium 9.0 mg/dL (8.5-10.5) 10/11/22 05:13 Total Bilirubin 0.7 mg/dL (0.15-1.2) 10/11/22 05:13 AST 15 U/L (0-40) 10/11/22 05:13 ALT 18 U/L (0-41) 10/11/22 05:13 Alkaline Phosphatase 68 U/L (40-130) 10/11/22 05:13 Creatine Kinase 140 U/L (39-308) 10/11/22 05:52 Troponin T Baseline 22 ng/L (0-15) H 10/11/22 05:52 NT-Pro-B Natriuret Pep 34 pg/mL (0-125) 10/11/22 05:13 Total Protein 7.5 g/dL (6.6-8.7) 10/11/22 05:13 Albumin 4.4 g/dL (3.5-5.2) 10/11/22 05:13 Globulin 3.1 g/dL (1.3-4.6) 10/11/22 05:13 Urine Color Yellow (Yellow) 10/11/22 03:39 Urine Appearance Sl hazy (CLEAR) A 10/11/22 03:39 Urine pH 6 (5-7) 10/11/22 03:39 Ur Specific [place] 1.010 (1.005-1.030) 10/11/22 03:39 Urine Protein 1+ (Negative) H 10/11/22 03:39 Urine Glucose (UA) Norm (Normal) 10/11/22 03:39 Urine Ketones Negative (Negative) 10/11/22 03:39 Urine Blood 3+ (Negative) H 10/11/22 03:39 Urine Nitrate Negative (Negative) 10/11/22 03:39 Urine Bilirubin Neg (Negative) 10/11/22 03:39 Urine Urobilinogen Neg mg/dL (Negative) 10/11/22 03:39 Ur Leukocyte Esterase Trace (Negative) H 10/11/22 03:39 Urine RBC 50-80 /hpf (0-2) H 10/11/22 03:39 Urine WBC 10-15 /hpf (0-5) H 10/11/22 03:39 Ur Squamous Epith Cells 5-10 /hpf (0-5) H 10/11/22 03:39 Amorphous Sediment Not Reportable 10/11/22 03:39 Urine Bacteria 2+ /hpf (NONE) H 10/11/22 03:39 Other Casts Wbc cast /lpf 10/11/22 03:39 Discharge Plan Discharge Patient Disposition: Home Clinical Impression: Acute cystitis, Bilateral flank pain, Enlarged prostate Condition: Stable Prescriptions: New levofloxacin 500 mg tablet 500 mg PO DAILY 7 Days Qty: 7 0RF ondansetron HCl 4 mg tablet 4 mg PO Q8H PRN (Reason: nausea and vomiting) Qty: 15 0RF Ultram 50 mg tablet 50 mg PO Q6H PRN (Reason: pain) Qty: 15 0RF No Action amlodipine 5 mg tablet 5 mg PO DAILY bumetanide 0.5 mg Tablet 0.5 mg PO BID metformin 500 mg Tablet 500 mg PO BID aspirin 81 mg capsule 81 mg PO DAILY Qty: 30 0RF Discharge Orders: Discharge ED (Routine); Ordered 10/11/22 Ordered By: Antonio Ruiz Referrals: Elsie Talavera FNP [Primary Care Provider] - 4-7 days Discharge Diet: Usual diet Discharge Activity: Resume usual activity Patient Instructions: Enlarged Prostate (BPH) (ED), Opioid Safety, Pain Manage ment, Urinary Tract Infection - Men Activity Restrictions/Additional Instructions: Please follow-up with your primary care doctor in 2 to 3 days,, take medications as prescribed and please increase your water consumption please return the interim if any of your symptoms persist or worse. Sign Out Sign Out Data: Patient Sign Out occurred on 10/13/22 at 06:52. Patient's care was discussed, and care was transferred from to Marco Antonio Wade DO. Coding Level of Care Code ED Cashier Payments Received for Chg Fwd Exam Comprehensive Documented by User: Marco Antonio Wade DO 10/14/22 06:06 HPI - Back Pain/Injury General: Chief Complaint: Back Pain/Injury Stated Complaint: kidney pain Time Seen by Provider: 10/11/22 04:35 PFSH ED PFSH: Medical History Cellulitis Right lower extremity Diabetes mellitus, type II Hypertension Nephrolithiasis Surgical History History of appendectomy as a child History of colonoscopy within 5 yrs Family History Father Diabetes Mother Diabetes Brother Diabetes Social History Alcohol intake: former Course Vital Signs: Vital signs: Vital Signs Temperature 98.2 F 10/11/22 03:32 Pulse Rate 119 H 10/11/22 06:44 Respiratory Rate 16 10/11/22 06:44 Blood Pressure 161/97 10/11/22 06:44 Pulse Oximetry 94 10/11/22 06:44 Oxygen Delivery Me thod 10/11/22 06:44 Oxygen Flow Rate 2 10/11/22 06:44 MDM - Back Pain/Injury Medical Decision Making This is a 62-year-old male signed out to myself Dr. Ruiz from Dr. Aragon at 0600 he presented to the ER department with bilateral flank pain and back pain. 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 The patient is currently waiting on CT imaging of the chest abdomen pelvis to further rule out additional concerns he was found to be tachycardic upon his arrival with slightly elevated respiratory rate afebrile. We will continue to follow. This patient was found to have urinary tract infection with bilateral prostate enlargement acute cystitis this can attribute to his white blood cell count elevation as well as a urinalysis results CT imaging only confirm some mild cystitis otherwise unremarkable patient we will provide a dose of IV Levaquin due to his history of Jose Chavarria's multiple antibiotic allergies. He reports he has had no issues with this in the past anticipate discharge home after IV antibiotics given in the ER patient was advised to further follow-up with primary care in 2 to 3 days in which she was advised to return the interim if any of his symptoms persist or worse. Patient was in the signout q. and inadvertently I had picked up the chart. I did not see or assist in the care of this patient. Dr. Aragon and Dr. Lugo managed his care. Due to a variation in the electronic medical records once the chart was in my sign queue I am not able to dismiss it without signing off on the note. Labs 10/11/22 05:13 10/11/22 05:13 Radiology Impressions Chest X-Ray 10/11/22 04:35 IMPRESSION: Stable chest with no acute process noted. Chest/Abdomen/Pelvis CT 10/11/22 05:27 IMPRESSION: 1. No PE or focal pneumonia identified. No definite acute finding. 2. Large heart with slight venous prominence but no evidence of overt CHF. 3. Chronic findings above. IMPRESSION: 1. No small bowel obstruction, abscess or free air. 2. Markedly enlarged prostate with possible cystitis. Advise correlation. 3. Large, fatty liver and other chronic findings above. COMMENTS: Consistent with the [place] [employer]'s Incidental Findings Committee white paper (J Am Seymour Radiol 2018): Any incidental renal lesion less than 1 cm or classified as too small to characterize, or any incidental cystic renal lesion characterized as simple-appearing, is likely benign. No follow-up imaging is recommended for these lesions per consensus recommendations based on imaging criteria. Laboratory Results WBC 17.0 10^3/uL (4.0-10.0) H 10/11/22 05:13 RBC 5.30 10^6/uL (4.1-5.3) 10/11/22 05:13 Hgb 16.5 g/dL (11.7-16.6) 10/11/22 05:13 Hct 47.8 % (42.0-52.0) 10/11/22 05:13 MCV 90.2 fl (80-94) 10/11/22 05:13 MCH 31.1 pg (28.0-34.0) 10/11/22 05:13 MCHC 34.5 g/dL (30.0-36.0) 10/11/22 05:13 RDW 12.5 % (12.1-15.1) 10/11/22 05:13 Plt Count 212 10^3/cmm (130-400) 10/11/22 05:13 MPV 10.6 fL (7.4-10.4) H 10/11/22 05:13 Neut % (Auto) 83.3 % 10/11/22 05:13 Lymph % (Auto) 9.3 % 10/11/22 05:13 Coles % (Auto) 6.8 % 10/11/22 05:13 Eos % (Auto) 0.1 % 10/11/22 05:13 Baso % (Auto) 0.1 % 10/11/22 05:13 Neut # (Auto) 14.19 10^3/uL (1.8-7.7) H 10/11/22 05:13 Lymph # (Auto) 1.6 10^3/uL (0.8-4.8) 10/11/22 05:13 [place] # (Auto) 1.2 10^3/uL (0.2-0.9) H 10/11/22 05:13 Eos # (Auto) 0.0 10^3/uL (0.0-0.8) 10/11/22 05:13 Baso # (Auto) 0.0 10^3/uL (0.0-0.1) 10/11/22 05:13 Nucleated RBC % (auto) 0 % 10/11/22 05:13 Nucleated RBCs # 0.0 /100WBC 10/11/22 05:13 D-Dimer 0.67 ug/mIFEU (0-0.59) H 10/11/22 05:52 Sodium 136 mmol/L (136-145) 10/11/22 05:13 Potassium 4.3 mmol/L (3.5-5.1) 10/11/22 05:13 Chloride 99 mmol/L (98-107) 10/11/22 05:13 Carbon Dioxide 25 mmol/L (22-29) 10/11/22 05:13 Anion Gap 16.3 (5-19) 10/11/22 05:13 BUN 12 mg/dL (8-23) 10/11/22 05:13 Creatinine 0.8 mg/dL (0.7-1.2) 10/11/22 05:13 GFR Calculation 98.0 mL/min (90-130) 10/11/22 05:13 Glucose 142 mg/dL (65-115) H 10/11/22 05:13 Calculated Osmolality 284 mOsm/kg (285-295) L 10/11/22 05:13 Calcium 9.0 mg/dL (8.5-10.5) 10/11/22 05:13 Total Bilirubin 0.7 mg/dL (0.15-1.2) 10/11/22 05:13 AST 15 U/L (0-40) 10/11/22 05:13 ALT 18 U/L (0-41) 10/11/22 05:13 Alkaline Phosphatase 68 U/L (40-130) 10/11/22 05:13 Creatine Kinase 140 U/L (39-308) 10/11/22 05:52 Troponin T Baseline 22 ng/L (0-15) H 10/11/22 05:52 NT-Pro-B Natriuret Pep 34 pg/mL (0-125) 10/11/22 05:13 Total Protein 7.5 g/dL (6.6-8.7) 10/11/22 05:13 Albumin 4.4 g/dL (3.5-5.2) 10/11/22 05:13 Globulin 3.1 g/dL (1.3-4.6) 10/11/22 05:13 Urine Color Yellow (Yellow) 10/11/22 03:39 Urine Appearance Sl hazy (CLEAR) A 10/11/22 03:39 Urine pH 6 (5-7) 10/11/22 03:39 Ur Specific [place] 1.010 (1.005-1.030) 10/11/22 03:39 Urine Protein 1+ (Negative) H 10/11/22 03:39 Urine Glucose (UA) Norm (Normal) 10/11/22 03:39 Urine Ketones Negative (Negative) 10/11/22 03:39 Urine Blood 3+ (Negative) H 10/11/22 03:39 Urine Nitrate Negative (Negative) 10/11/22 03:39 Urine Bilirubin Neg (Negative) 10/11/22 03:39 Urine Urobilinogen Neg mg/dL (Negative) 10/11/22 03:39 Ur Leukocyte Esterase Trace (Negative) H 10/11/22 03:39 Urine RBC 50-80 /hpf (0-2) H 10/11/22 03:39 Urine WBC 10-15 /hpf (0-5) H 10/11/22 03:39 Ur Squamous Epith Cells 5-10 /hpf (0-5) H 10/11/22 03:39 Amorphous Sediment Not Reportable 10/11/22 03:39 Urine Bacteria 2+ /hpf (NONE) H 10/11/22 03:39 Other Casts Wbc cast /lpf 10/11/22 03:39 Discharge Plan Discharge Patient Disposition: Home Clinical Impression: Acute cystitis, Bilateral flank pain, Enlarged prostate Condition: Stable Prescriptions: New levofloxacin 500 mg tablet 500 mg PO DAILY 7 Days Qty: 7 0RF ondansetron HCl 4 mg tablet 4 mg PO Q8H PRN (Reason: nausea and vomiting) Qty: 15 0RF Ultram 50 mg tablet 50 mg PO Q6H PRN (Reason: pain) Qty: 15 0RF No Action amlodipine 5 mg tablet 5 mg PO DAILY bumetanide 0.5 mg Tablet 0.5 mg PO BID metformin 500 mg Tablet 500 mg PO BID aspirin 81 mg capsule 81 mg PO DAILY Qty: 30 0RF Discharge Orders: Discharge ED (Routine); Ordered 10/11/22 Ordered By: Antonio Ruiz Referrals: Elsie Talavera, [employer] OPERATOR [Primary Care Provider] - 4-7 days Discharge Diet: Usual diet Discharge Activity: Resume usual activity Patient Instructions: Enlarged Prostate (BPH) (ED), Opioid Safety, Pain Management, Urinary Tract Infection - Men Activity Restrictions/Additional Instructions: Please follow-up with your primary care doctor in 2 to 3 days,, take medications as prescribed and please increase your water consumption please return the interim if any of your symptoms persist or worse. Sign Out Sign Out Data: Patient Sign Out occurred on 10/13/22 at 06:52. Patient's care was discussed, and care was transferred from to Marco Antonio Wade DO. Coding Level of Care Code ED Cashier Payments Received for Chg Fwd Exam Comprehensive
[2022-10-11 05:21] LABS: Basophils % 0.1 %; Eosinophils % 0.1 %; Hematocrit 47.8 % (42.0-52.0); Hemoglobin 16.5 g/dL (11.7-16.6); Lymphocytes # 1.6 10^3/uL (0.8-4.8); Lymphocytes % 9.3 %; Mean Corpuscular HGB Conc 34.5 g/dL (30.0-36.0); Mean Corpuscular Hemoglobin 31.1 pg (28.0-34.0); Mean Corpuscular Volume 90.2 fl (80-94); Mean Platelet Volume 10.6 fL (7.4-10.4); Monocytes # 1.2 10^3/uL (0.2-0.9); Monocytes % 6.8 %; Neutrophils # 14.19 10^3/uL (1.8-7.7); Neutrophils % 83.3 %; Nucleated Red Blood Cells % 0 %; Platelet Count 212 10^3/cmm (130-400); Red Cell Distribution Width 12.5 % (12.1-15.1)
[2022-10-11] MEDS: ondansetron 2 mg/ML SDV 2 mL 4 MG IVP (05:22)
[2022-10-11] MEDS: morphine 4 mg/mL SDV 1 mL IVP (05:22)
[2022-10-11] MEDS: sodium chloride 0.9% 1,000 ML 999 ML IV (05:22)
--- NOTE | 2022-10-11 05:27 | CTR_ITS ---
PROCEDURE INFORMATION: Exam: CTA Chest With Contrast Exam date and time: 10/11/2022 6:06 AM Age: 62 years old Clinical indication: Other: N/a; Abdominal pain; Shortness of breath; Prior surgery; Surgery type: Appy; Patient HX: SOB with bilateral flank pain. Elevated wbc and hematuria. Has been consistently tachycardic and mildy hypoxic on monitor. ; Additional info: Sob/flank pain TECHNIQUE: Imaging protocol: Computed tomographic angiography of the chest with contrast. 3D rendering (Not supervised by radiologist): MIP and/or 3D reconstructed images were created by the technologist. Radiation optimization: All CT scans at this facility use at least one of these dose optimization techniques: automated exposure control; mA and/or kV adjustment per patient size (includes targeted exams where dose is matched to clinical indication); or iterative reconstruction. Contrast material: OMNI 350; Contrast volume: 100 ml; Contrast route: INTRAVENOUS (IV); COMPARISON: CR (CHEST, ) 10/11/2022 4:46 AM RADIATION DOSE METRICS: Total DLP (mGy-cm): 1800.2 FINDINGS: Pulmonary arteries: No main, lobar, or segmental PE identified. Aorta: Unremarkable. No aortic aneurysm. No aortic dissection. Veins: Mild venous congestion. The heart is rather large. Thyroid: The thyroid is nodular and heterogeneous. Lungs: The lungs show no dominant mass or spiculated nodule. A few areas of minimal atelectasis and scarring are present. Pleural spaces: No effusion, consolidation or pneumothorax. The lungs show no dominant mass or spiculated nodule. Heart: The heart is rather large with mild venous congestion. Lymph nodes: No bulky hilar or mediastinal lymphadenopathy noted. Bones/joints: A few old right rib deformities are visualized. Mild thoracic spine DJD. Soft tissues: Unremarkable. PROCEDURE INFORMATION: Exam: CT Abdomen And Pelvis With Contrast Exam date and time: 10/11/2022 6:06 AM Age: 62 years old Clinical indication: Other: N/a; Abdominal pain; Shortness of breath; Prior surgery; Surgery type: Appy; Patient HX: SOB with bilateral flank pain. Elevated wbc and hematuria. Has been consistently tachycardic and mildy hypoxic on monitor. ; Additional info: Sob/flank pain TECHNIQUE: Imaging protocol: Computed tomography of the abdomen and pelvis with contrast. Radiation optimization: All CT scans at this facility use at least one of these dose optimization techniques: automated exposure control; mA and/or kV adjustment per patient size (includes targeted exams where dose is matched to clinical indication); or iterative reconstruction. Contrast material: OMNI 350; Contrast volume: 100 ml; Contrast route: INTRAVENOUS (IV); COMPARISON: US gall bladder [id number] 07/30/2021 11:50 PM RADIATION DOSE METRICS: Total DLP (mGy-cm): 1800.2 FINDINGS: Lungs: The visualized lung bases are clear. Liver: The liver is hypodense. The liver is large. Gallbladder and bile ducts: Equivocal gallbladder sludge. No focal gallbladder inflammatory process. Pancreas: Unremarkable with no suspicious mass. No ductal dilation. Spleen: The spleen is not enlarged. No suspicious enhancing mass is noted. Adrenal glands: The adrenals are somewhat lobular and may be hyperplastic but are without focal suspicious mass. Kidneys and ureters: Minute right renal cyst measures about 2 cm. The kidneys show no solid mass or hydronephrosis. Very minimal right nephrolithiasis. Stomach and bowel: No small bowel obstruction or free air. No overt mucosal thickening. Appendix: No evidence of appendicitis. Intraperitoneal space: Unremarkable. No free air. No suspicious fluid collection. Vasculature: No AAA or acute vascular lesion identified. Mild diffuse atherosclerotic disease. Lymph nodes: No enlarged lymph nodes. Urinary bladder: There is mild bladder wall thickening. Reproductive: Prostate is markedly enlarged. Bones/joints: No acute or aggressive bone lesion. Soft tissues: No acute or suspicious finding noted. CT/CT angio chest w abd pel w con IMPRESSION: 1. No PE or focal pneumonia identified. No definite acute finding. 2. Large heart with slight venous prominence but no evidence of overt CHF. 3. Chronic findings above. IMPRESSION: 1. No small bowel obstruction, abscess or free air. 2. Markedly enlarged prostate with possible cystitis. Advise correlation. 3. Large, fatty liver and other chronic findings above. COMMENTS: Consistent with the [place] [employer]'s Incidental Findings Committee white paper (J Am Seymour Radiol 2018): Any incidental renal lesion less than 1 cm or classified as too small to characterize, or any incidental cystic renal lesion characterized as simple-appearing, is likely benign. No follow-up imaging is recommended for these lesions per consensus recommendations based on imaging criteria.
[2022-10-11 05:36] VITALS: BP 152/93; PULSE 112; RESP 20; O2SAT 93
[2022-10-11 05:51] LABS: Alanine Aminotransferase 18 U/L (0-41); Albumin Level 4.4 g/dL (3.5-5.2); Alkaline Phosphatase 68 U/L (40-130); Anion Gap 16.3 (5-19); Aspartate Amino Transferase 15 U/L (0-40); Blood Urea Nitrogen 12 mg/dL (8-23); Carbon Dioxide 25 mmol/L (22-29); Chloride 99 mmol/L (98-107); Globulin 3.1 g/dL (1.3-4.6); Glucose 142 mg/dL (65-115); NT Pro B Type Natriuretic Pept 34 pg/mL (0-125); Osmolality Calculated 284 mOsm/kg (285-295); Potassium 4.3 mmol/L (3.5-5.1); Sodium 136 mmol/L (136-145); Total Bilirubin 0.7 mg/dL (0.15-1.2); Total Protein 7.5 g/dL (6.6-8.7)
[2022-10-11 06:17] LABS: D Dimer 0.67 ug/mIFEU (0-0.59)
[2022-10-11 06:20] LABS: Troponin(5th) Baseline 22 ng/L (0-15)
[2022-10-11 06:23] LABS: Creatine Phosphokinase 140 U/L (39-308)
--- NOTE | 2022-10-11 06:25 | PC.NURSE ---
Addendum entered by Aurea Cowart RN 10/11/22 06:30: Entered on wrong chart Original Note: Pt left with surgery nurse [id number]
[2022-10-11] MEDS: levofloxacin-dextrose 5 % 500 MG/100 ML PREMIX 100 MG IV (06:43)
[2022-10-11 06:44] VITALS: BP 161/97; PULSE 119; RESP 16; O2SAT 94
== END 2022-10-11 07:55 | disposition home or self-care (01) ==
PROVIDERS: Emergency Medicine; Emergency Provider Family Medicine; PCP Nurse Practitioner Family
DX: N30.00 Acute cystitis without hematuria (principal); N40.0 Benign prostatic hyperplasia without lower urinary tract symptoms; Z79.84 Long term (current) use of oral hypoglycemic drugs; Z79.82 Long term (current) use of aspirin; E11.9 Type 2 diabetes mellitus without complications; I10 Essential (primary) hypertension
CPT/HCPCS: 71045; 71275; 74177; 80053; 81001; 82550; 83880; 84484; 85025; 85378; 87077; 87086; 87186; 93005; 96365; 96375; 99285; J1956; J2270; J2405; J7030; Q9967

== ENCOUNTER 2023-02-10 17:55 | Inpatient (IN) | payer SELFPAY ==
[2023-02-10] VITALS (8 sets, daily range): BP systolic 116–143; BP diastolic 70–82; PULSE 126–139; RESP 16–28; TEMP 37.6–39; O2SAT 91–94
--- NOTE | 2023-02-10 18:04 | XRR_ITS ---
PROCEDURE INFORMATION: Exam: XR Chest Exam date and time: 02/10/2023 6:17 PM Age: 62 years old Clinical indication: Other: Tachycardia TECHNIQUE: Imaging protocol: Radiologic exam of the chest. Views: 1 view. COMPARISON: CR (CHEST, ) 10/11/2022 4:46 AM FINDINGS: Lungs: Unremarkable. No consolidation. Pleural spaces: Unremarkable. No pleural effusion. No pneumothorax. Heart/Mediastinum: Unremarkable. No cardiomegaly. Bones/joints: Unremarkable. XR/XR chest 1V portable [id number] IMPRESSION: No acute findings.
--- NOTE | 2023-02-10 18:05 | ECG_ITS ---
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 Measurements Intervals [place] Rate: 130 P: 44 NV: 152 QRS: -76 QRSD: 136 T: 6 QT: 325 QTc: 478 Interpretive Statements SINUS TACHYCARDIA RIGHT BUNDLE BRANCH BLOCK [120+ ms QRS DURATION, UPRIGHT V1, 40+ ms S IN I/aVL/V4/V5/V6] INFERIOR MYOCARDIAL INFARCTION , OF INDETERMINATE AGE [40+ ms Q WAVE AND/OR ST/T ABNORMALITY IN II/aVF] INTERPRETATION BASED ON A DEFAULT AGE OF 40 YEARS Compared to ECG 10/11/2022 05:21:57 Myocardial infarct finding now present Electronically Signed On 02-11-2023 2:20:10 CDT by Robinson Britt M.D. [id number] f
--- NOTE | 2023-02-10 18:14 | PC.NURSE ---
PT TRIAGED WITH Abram MARCANO RN
--- NOTE | 2023-02-10 18:14 | PC.NURSE ---
PT TRIAGED WITH PARKER CEJA
[2023-02-10 18:15] LABS: Basophils # 0.1 10^3/uL (0.0-0.1); Basophils % 0.2 %; Hematocrit 46.5 % (42.0-52.0); Hemoglobin 16.3 g/dL (11.7-16.6); Lymphocytes # 0.7 10^3/uL (0.8-4.8); Lymphocytes % 3.2 %; Mean Corpuscular HGB Conc 35.1 g/dL (30.0-36.0); Mean Corpuscular Hemoglobin 31.2 pg (28.0-34.0); Mean Corpuscular Volume 89.1 fl (80-94); Mean Platelet Volume 10.2 fL (7.4-10.4); Monocytes # 1.2 10^3/uL (0.2-0.9); Monocytes % 5.3 %; Neutrophils # 20.64 10^3/uL (1.8-7.7); Neutrophils % 90.8 %; Nucleated Red Blood Cells % 0 %; Platelet Count 166 10^3/cmm (130-400); Red Blood Count 5.22 10^6/uL (4.1-5.3); Red Cell Distribution Width 12.7 % (12.1-15.1); White Blood Count 22.7 10^3/uL (4.0-10.0)
[2023-02-10] MEDS: sodium chloride 0.9% 1,000 ML 999 ML IV ×2 (18:17→23:11)
--- NOTE | 2023-02-10 18:17 | W.ED.GENADLT ---
HPI - General Adult General: Chief complaint: General Medical Stated complaint: low b/p; urinating blood Time Seen by Provider: 02/10/23 18:03 History of Present Illness: Patient presents to the ER with daughter at bedside. Patient's daughter complains patient's had abdominal pain for last couple days, urinating blood for the last couple days, and has altered mental status x2 days. She says the patient has history of cellulitis seizures hypertension untreated diabetes. Patient is warm and diaphoretic the abdomen does appear distended complaint: Abdominal pain hematuria altered mental status Onset (ago): day(s) (2 days ago) Location: abdomen Relieving factors: none Exacerbating factors: none Associated symptoms: Reports confusion Treatments prior to arrival: none Review of Systems General: Reports: ROS unobtainable due to mental status Neuro: Reports: confusion PFSH ED PFSH: Medical History Cellulitis Right lower extremity Diabetes mellitus, type II Hypertension Nephrolithiasis Surgical History History of appendectomy as a child History of colonoscopy within 5 yrs Family History Father Diabetes Mother Diabetes Brother Diabetes Social History Alcohol intake: former Physical Exam Const: COMMON NORMALS: average body habitus, no limitations, alert and well nourished HENMT: COMMON NORMALS: normocephalic, atraumatic, hearing grossly normal bilaterally, external ears normal, Normal external nose present and moist oral mucous membranes HEAD & SCALP: normocephalic and atraumatic NOSE: Normal external nose present EXTERNAL EAR: Yes external ears normal Eye: COMMON NORMALS: Equal, round and reactive pupils present, EOMs intact bilaterally, conjunctivae normal and no scleral icterus CONJUNCTIVA: Yes conjunctivae normal PUPIL: Yes Equal, round and reactive pupils present Neck/C-Spine: COMMON NORMALS: full ROM, no lymphadenopathy, supple, no meningeal signs, no JVD and Thyroid normal THYROID: Thyroid normal Chest: COMMONS NORMALS: normal inspection of the chest and normal palpation of entire chest wall Resp: COMMON NORMALS: normal respiratory effort, No retractions, No use of accessory muscles and clear to auscultation bilaterally AUSCULTATION: clear to auscultation bilaterally Cardio: COMMON NORMALS: no JVD RATE: tachycardic GI: COMMON NORMALS: Soft to palpation INSPECTION: Yes abdominal distension AUSCULTATION: Yes normoactive bowel sounds PALPATION: Yes Soft to palpation : COMMON NORMALS: Yes no CVA tenderness BLADDER/KIDNEY EXAM: Yes no CVA tenderness Back/Pelvis: COMMON NORMALS: no CVA tenderness Neuro: SENSORIUM/ORIENTATION: Yes alert MENINGEAL SIGNS: Yes no meningeal signs Psych: COMMON NORMALS: mental status grossly normal, cooperative, normal affect and speech normal SPEECH: Yes normal speech Course Vital Signs: Vital signs: Vital Signs Temperature 99.6 F 02/10/23 18:12 Pulse Rate 126 H 02/10/23 20:50 Respiratory Rate 25 H 02/10/23 20:50 Blood Pressure 116/70 02/10/23 20:50 Pulse Oximetry 91 02/10/23 20:50 Oxygen Delivery Me thod 02/10/23 20:50 Oxygen Flow Rate 2 02/10/23 18:12 MDM - General Adult Medical Decision Making Patient presents to the ER with daughter at bedside with complaints of gross hematuria, tachycardia and hypotension, and altered mental status. Patient does appear altered and diaphoretic. Patient has a distended abdomen. Patient is persistently tachycardic at 130 bpm even after 1 L bolus of normal saline he only dropped to 120 bpm. Lab work and multiple CTs were obtained. These showed a white count of 22.[address] scan of his head chest abdomen pelvis showed acute right pyelonephritis with possible renal abscess and 4 mm distal ureteral stone. Patient was given 750 mg of Levaquin IV as he has had a Bernard-Deon type reaction to Zosyn. Dr. Hernandes was consulted and informed of patient and lab results. She suggested the antibiotics aztreonam and vancomycin and will be started here in ER. Patient will be admitted to [facility] for further evaluation and work-up. Differential Diagnosis Altered mental status, urinary tract infection, hematuria, abdominal pain Lab Data 02/10/23 18:05 02/10/23 18:05 Radiology Impressions Chest X-Ray 02/10/23 18:04 IMPRESSION: No acute findings. Chest/Abdomen/Pelvis CT 02/10/23 19:22 IMPRESSION: No acute findings within the chest. IMPRESSION: 1. Acute right pyelonephritis with findings suspicious for small developing renal abscesses. 2. 4 mm nonobstructing right distal ureteral stone. No significant hydronephrosis. 3. Mild-moderate prostate enlargement with accompanying bladder wall thickening. 4. Hepatomegaly with diffuse fatty infiltration. 5. Cholelithiasis without evidence of acute cholecystitis. COMMENTS: Consistent with the [place] [employer]'s Incidental Findings Committee white paper (J Am Seymour Radiol 2018): Any incidental renal lesion less than 1 cm or classified as too small to characterize, or any incidental cystic renal lesion characterized as simple-appearing, is likely benign. No follow-up imaging is recommended for these lesions per consensus recommendations based on imaging criteria. Head CT 02/10/23 19: IMPRESSION: No acute intracranial findings. Laboratory Results WBC 22.7 10^3/uL (4.0-10.0) H 02/10/23 18:05 RBC 5.22 10^6/uL (4.1-5.3) 02/10/23 18:05 Hgb 16.3 g/dL (11.7-16.6) 02/10/23 18:05 Hct 46.5 % (42.0-52.0) 02/10/23 18:05 MCV 89.1 fl (80-94) 02/10/23 18:05 MCH 31.2 pg (28.0-34.0) 02/10/23 18:05 MCHC 35.1 g/dL (30.0-36.0) 02/10/23 18:05 RDW 12.7 % (12.1-15.1) 02/10/23 18:05 Plt Count 166 10^3/cmm (130-400) 02/10/23 18:05 MPV 10.2 fL (7.4-10.4) 02/10/23 18:05 Neut % (Auto) 90.8 % 02/10/23 18:05 Lymph % (Auto) 3.2 % 02/10/23 18:05 Dixon % (Auto) 5.3 % 02/10/23 18:05 Eos % (Auto) 0.0 % 02/10/23 18:05 Baso % (Auto) 0.2 % 02/10/23 18:05 Neut # (Auto) 20.64 10^3/uL (1.8-7.7) H 02/10/23 18:05 Lymph # (Auto) 0.7 10^3/uL (0.8-4.8) L 02/10/23 18:05 Dixon # (Auto) 1.2 10^3/uL (0.2-0.9) H 02/10/23 18:05 Eos # (Auto) 0.0 10^3/uL (0.0-0.8) 02/10/23 18:05 Baso # (Auto) 0.1 10^3/uL (0.0-0.1) 02/10/23 18:05 Nucleated RBC % (auto) 0 % 02/10/23 18:05 Nucleated RBCs # 0.0 /100WBC 02/10/23 18:05 PT 15.50 SECONDS (12.1-14.9) H 02/10/23 18:05 INR 1.19 (0.8-1.2) 02/10/23 18:05 Sodium 131 mmol/L (136-145) L 02/10/23 18:05 Potassium 4.1 mmol/L (3.5-5.1) 02/10/23 18:05 Chloride 92 mmol/L (98-107) L 02/10/23 18:05 Carbon Dioxide 22 mmol/L (22-29) 02/10/23 18:05 Anion Gap 21.1 (5-19) H 02/10/23 18:05 BUN 23 mg/dL (8-23) 02/10/23 18:05 Creatinine 1.4 mg/dL (0.7-1.2) H 02/10/23 18:05 GFR Calculation 51.4 mL/min (90-130) L 02/10/23 18:05 Glucose 175 mg/dL (65-115) H 02/10/23 18:05 Calculated Osmolality 280 mOsm/kg (285-295) L 02/10/23 18:05 Lactic Acid 1.9 mmol/L (0.5-2.2) 02/10/23 18:05 Calcium 8.8 mg/dL (8.5-10.5) 02/10/23 18:05 Magnesium 1.5 mg/dL (1.7-2.3) L 02/10/23 18:05 Total Bilirubin 0.7 mg/dL (0.15-1.2) 02/10/23 18:05 AST 28 U/L (0-40) 02/10/23 18:05 ALT 18 U/L (0-41) 02/10/23 18:05 Alkaline Phosphatase 68 U/L (40-130) 02/10/23 18:05 Ammonia 28 umol/L (16-60) 02/10/23 18:05 Troponin T Baseline 42 ng/L (0-15) H 02/10/23 18:05 Troponin T 120 Minute 37.38 ng/L (0-15) H 02/10/23 20:30 Delta Troponin T -4.62 ABS# (0-10) L 02/10/23 20:30 NT-Pro-B Natriuret Pep 718 pg/mL (0-125) H 02/10/23 18:05 Total Protein 7.4 g/dL (6.6-8.7) 02/10/23 18:05 Albumin 4.0 g/dL (3.5-5.2) 02/10/23 18:05 Globulin 3.4 g/dL (1.3-4.6) 02/10/23 18:05 Amylase 22 U/L (28-100) L 02/10/23 18:05 Lipase 10 U/L (13-60) L 02/10/23 18:05 Procalcitonin 10.11 ng/mL (0-0.5) H 02/10/23 18:05 Urine Color [place] (Yellow) 02/10/23 19:00 Urine Appearance Cloudy (CLEAR) A 02/10/23 19:00 Urine pH 5 (5-7) 02/10/23 19:00 Ur Specific [place] 1.020 (1.005-1.030) 02/10/23 19:00 Urine Protein 3+ (Negative) H 02/10/23 19:00 Urine Glucose (UA) Norm (Normal) 02/10/23 19:00 Urine Ketones 1+ (Negative) H 02/10/23 19:00 Urine Blood 3+ (Negative) H 02/10/23 19:00 Urine Nitrate Positive (Negative) H 02/10/23 19:00 Urine Bilirubin 1+ (Negative) H 02/10/23 19:00 Urine Urobilinogen 1 mg/dL (Negative) H 02/10/23 19:00 Ur Leukocyte Esterase 1+ (Negative) H 02/10/23 19:00 Urine RBC 0-4 /hpf (0-2) H 02/10/23 19:00 Urine WBC >100 /hpf (0-5) H 02/10/23 19:00 Ur Squamous Epith Cells 10-15 /hpf (0-5) H 02/10/23 19:00 Amorphous Sediment 4+ /hpf 02/10/23 19:00 Urine Bacteria 1+ /hpf (NONE) H 02/10/23 19:00 Discharge Plan Discharge Patient Disposition: Admitted As Inpatient Clinical Impression: Acute bacterial pyelonephritis, Tachycardia, Acute alteration in mental status, Hypomagnesemia Leukocytosis Qualifiers: Leukocytosis type: unspecified Qualified Code(s): D72.829 - Elevated white blood cell count, unspecified Condition: Stable Coding Level of Care Code ED Senior Net Developer for Thelma Florian
[2023-02-10 18:33] LABS: Lactic Sepsis W/Reflex 1.9 mmol/L (0.5-2.2)
[2023-02-10 18:38] LABS: INR 1.19 (0.8-1.2)
[2023-02-10 18:39] LABS: Ammonia 28 umol/L (16-60)
[2023-02-10 18:46] LABS: Troponin(5th) Baseline 42 ng/L (0-15)
[2023-02-10 18:56] LABS: NT Pro B Type Natriuretic Pept 718 pg/mL (0-125); Procalcitonin 10.11 ng/mL (0-0.5)
[2023-02-10 19:07] LABS: Alanine Aminotransferase 18 U/L (0-41); Alkaline Phosphatase 68 U/L (40-130); Anion Gap 21.1 (5-19); Aspartate Amino Transferase 28 U/L (0-40); Blood Urea Nitrogen 23 mg/dL (8-23); Calcium 8.8 mg/dL (8.5-10.5); Carbon Dioxide 22 mmol/L (22-29); Chloride 92 mmol/L (98-107); Globulin 3.4 g/dL (1.3-4.6); Glomerular Filtration Rate 51.4 mL/min (90-130); Glucose 175 mg/dL (65-115); Magnesium 1.5 mg/dL (1.7-2.3); Osmolality Calculated 280 mOsm/kg (285-295); Potassium 4.1 mmol/L (3.5-5.1); Sodium 131 mmol/L (136-145); Total Bilirubin 0.7 mg/dL (0.15-1.2); Total Protein 7.4 g/dL (6.6-8.7)
[2023-02-10 19:10] LABS: Amylase 22 U/L (28-100); Lipase 10 U/L (13-60)
--- NOTE | 2023-02-10 19:22 | CTR_ITS ---
PROCEDURE INFORMATION: Exam: CT Chest With Contrast; Diagnostic Exam date and time: 02/10/2023 7:36 PM Age: 62 years old Clinical indication: Abdominal pain; Acute; Chest pressure; Prior surgery; Surgery date: 6+ months; Surgery type: Gb; Additional info: Tachycardia, leukocytosis, abd distension, hematuria TECHNIQUE: Imaging protocol: Diagnostic computed tomography of the chest with contrast. Radiation optimization: All CT scans at this facility use at least one of these dose optimization techniques: automated exposure control; mA and/or kV adjustment per patient size (includes targeted exams where dose is matched to clinical indication); or iterative reconstruction. Contrast material: OMNI 350; Contrast volume: 100 ml; Contrast route: INTRAVENOUS (IV); REPORTING DATA: Count of CT and Cardiac NM exams in prior 12 months: This patient has received 2 known CTs and 0 known cardiac nuclear medicine studies in the 12 months prior to the current study. COMPARISON: CT angio chest w abd pel w con 10/11/2022 6:06 AM RADIATION DOSE METRICS: Total DLP (mGy-cm): 1712.05 FINDINGS: Lungs: Unremarkable. No consolidation. No masses. Pleural spaces: Unremarkable. No pneumothorax. No pleural effusion. Heart: Heart is borderline enlarged. No significant coronary artery calcifications pericardial effusion. Lymph nodes: Unremarkable. No enlarged lymph nodes. Vasculature: Unremarkable. No aortic aneurysm. Bones/joints: Unremarkable. No acute fracture. Soft tissues: Unremarkable. PROCEDURE INFORMATION: Exam: CT Abdomen And Pelvis With Contrast Exam date and time: 02/10/2023 7:36 PM Age: 62 years old Clinical indication: Abdominal pain; Acute; Chest pressure; Prior surgery; Surgery date: 6+ months; Surgery type: Gb; Additional info: Tachycardia, leukocytosis, abd distension, hematuria TECHNIQUE: Imaging protocol: Computed tomography of the abdomen and pelvis with contrast. Radiation optimization: All CT scans at this facility use at least one of these dose optimization techniques: automated exposure control; mA and/or kV adjustment per patient size (includes targeted exams where dose is matched to clinical indication); or iterative reconstruction. Contrast material: OMNI 350; Contrast volume: 100 ml; Contrast route: INTRAVENOUS (IV); REPORTING DATA: Count of CT and Cardiac NM exams in prior 12 months: This patient has received 2 known CTs and 0 known cardiac nuclear medicine studies in the 12 months prior to the current study. COMPARISON: CT angio chest w abd pel w con 10/11/2022 6:06 AM RADIATION DOSE METRICS: Total DLP (mGy-cm): 1712.05 FINDINGS: Lungs: Lung bases are clear. Liver: Liver is enlarged with diffuse fatty infiltration. Gallbladder and bile ducts: Few small gallstones within the dependent portion the gallbladder otherwise Gallbladder has unremarkable. Pancreas: Unremarkable. Main pancreatic duct is not significantly dilated. Spleen: Normal. No splenomegaly. Adrenal glands: Normal. No mass. Kidneys and ureters: There is heterogeneous enhancement throughout the right kidney which is mildly swollen with some perinephric fat stranding consistent with pyelonephritis is. There are small rounded areas of diminished enhancement within the right renal cortex some of which have small focal areas of cystic attenuation likely representing small renal abscesses. Superimposed small benign-appearing cyst lower pole. Left kidney is unremarkable. There is a 4 mm right distal ureteral stone without significant hydronephrosis. Stomach and bowel: Unremarkable. No obstruction. No mucosal thickening. Appendix: No evidence of appendicitis. Intraperitoneal space: Unremarkable. No free air. No significant fluid collection. Vasculature: Unremarkable. No abdominal aortic aneurysm. Lymph nodes: Unremarkable. No enlarged lymph nodes. Urinary bladder: There is diffuse bladder wall thickening that may be secondary to chronic bladder outlet obstruction syndrome but should also be correlated for cystitis. Reproductive: Prostate gland is mild-moderately enlarged. Bones/joints: Unremarkable. No acute fracture. Soft tissues: Unremarkable. CT/CT chest abdpel w/*[id number] IMPRESSION: No acute findings within the chest. IMPRESSION: 1. Acute right pyelonephritis with findings suspicious for small developing renal abscesses. 2. 4 mm nonobstructing right distal ureteral stone. No significant hydronephrosis. 3. Mild-moderate prostate enlargement with accompanying bladder wall thickening. 4. Hepatomegaly with diffuse fatty infiltration. 5. Cholelithiasis without evidence of acute cholecystitis. COMMENTS: Consistent with the [place] [employer]'s Incidental Findings Committee white paper (J Am Seymour Radiol 2018): Any incidental renal lesion less than 1 cm or classified as too small to characterize, or any incidental cystic renal lesion characterized as simple-appearing, is likely benign. No follow-up imaging is recommended for these lesions per consensus recommendations based on imaging criteria.
--- NOTE | 2023-02-10 19:23 | CTR_ITS ---
PROCEDURE INFORMATION: Exam: CT Head Without Contrast Exam date and time: 02/10/2023 7:32 PM Age: 62 years old Clinical indication: Altered mental status/memory loss; Confusion or disorientation TECHNIQUE: Imaging protocol: Computed tomography of the head without contrast. Radiation optimization: All CT scans at this facility use at least one of these dose optimization techniques: automated exposure control; mA and/or kV adjustment per patient size (includes targeted exams where dose is matched to clinical indication); or iterative reconstruction. REPORTING DATA: Count of CT and Cardiac NM exams in prior 12 months: This patient has received 2 known CTs and 0 known cardiac nuclear medicine studies in the 12 months prior to the current study. COMPARISON: No relevant prior studies available. RADIATION DOSE METRICS: Total DLP (mGy-cm): 1088.3 FINDINGS: Brain: Normal. No hemorrhage. Unremarkable white matter. No mass effect. Cerebral ventricles: No ventriculomegaly. Paranasal sinuses: There is mucosal thickening of the frontal and sphenoid sinuses. Mucosal thickening is present in several of the anterior ethmoid air cells. No air-fluid levels. Mastoid air cells: Visualized mastoid air cells are well aerated. Bones/joints: Unremarkable. No acute fracture. Soft tissues: Unremarkable. CT/CT head wo con* [id number] IMPRESSION: No acute intracranial findings.
[2023-02-10] MEDS: iohexol 350 mg/mL 500 mL Btl (per mL) IV (19:46)
[2023-02-10 19:58] LABS: Glucose Urine UA Norm (Normal); Protein Urine 3+ (Negative); Urine Appearance Cloudy (CLEAR); Urine Color Amber (Yellow); pH Urine 5 (5-7)
[2023-02-10 19:59] LABS: Add Urine Microscopic? YES; Bilirubin Urine 1+ (Negative); Blood Urine 3+ (Negative); Ketones Urine 1+ (Negative); Leukocyte Esterase Urine 1+ (Negative); Nitrate Urine Positive (Negative); Urobilinogen Urine 1 mg/dL (Negative)
[2023-02-10 20:04] LABS: RBC Urine 0-4 /hpf (0-2); WBC Urine >100 /hpf (0-5)
--- NOTE | 2023-02-10 20:05 | ECG_ITS ---
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 Measurements Intervals [place] Rate: 127 P: 44 [place]: 140 QRS: -81 QRSD: 153 T: 30 QT: 331 QTc: 482 Interpretive Statements SINUS TACHYCARDIA RIGHT BUNDLE BRANCH BLOCK [120+ ms QRS DURATION, UPRIGHT V1, 40+ ms S IN I/aVL/V4/V5/V6] LEFT ANTERIOR FASCICULAR BLOCK [QRS AXIS <= -45, QR IN I, RS IN II] Compared to ECG 02/10/2023 18:05:58 Left anterior fascicular block now present Myocardial infarct finding no longer present Electronically Signed On 02-11-2023 16:23:54 CDT by Micah Mazariegos M.D. [id number]
[2023-02-10 20:06] LABS: Amorphous Sediment Urine 4+ /hpf; Bacteria Urine 1+ /hpf
[2023-02-10 20:07] LABS: Add Urine Culture? No
[2023-02-10] MEDS: levofloxacin-dextrose 5 % 750 MG/150 ML PREMIX 100 MG IV (20:45)
[2023-02-10] MEDS: LORazepam 2 mg/mL INJ 1 mL 1 MG IVP (20:45)
[2023-02-10 20:54] LABS: Troponin 5 2HR 37.38 ng/L (0-15)
[2023-02-10 20:56] LABS: Troponin 5 2HR Delta -4.62 ABS# (0-10)
--- NOTE | 2023-02-10 22:02 | P.HP_ITS ---
Providers/Chief Complaint Admitting Physician: Annie Hernandes MD Chief Complaint: low b/p; urinating blood History of Present Illness Jose Canales is a 62 year old male with past medical history of right lower extremity cellulitis, type 2 diabetes mellitus, hypertension, nephrolithiasis, seizures, uncontrolled diabetes presented to the hospital today accompanied by his daughter for complaint of abdominal pain that is been going on for the last few days. He has been having hematuria for the last few days and has been altered. Daughter did report that patient's blood pressure was 70/30 at home and he was quite diaphoretic however on arrival to ER blood pressure was 140/80. Patient was diaphoretic in the ER and abdomen appeared distended. Very poor historian. Unable to give much details. Denies chest pain, sob, abdominal pain at this time, endorses chronic leg swelling.He is refusing rodriguez. Claims the hospital has messed him up and given him a bill and did not treat him . Seems to be confused. Blood pressure on arrival 116/70, respiratory rate 25, tachycardic 126, temperature 99.6 saturating 2 L nasal cannula 91%. He was given 1 L normal saline bolus. WBC 23,000, hemoglobin 16.3, platelets 166, INR 1.19, sodium 131, potassium 4.1, anion gap 21.1, creatinine 1.4, lactic acid 1.9, BNP 718, delta troponin -4, procalcitonin 10.11, UA positive for 3+ protein, 1+ ketones, 3+ blood, positive nitrates, positive leukocyte esterase, greater than 100 WBC, 1+ bacteria, 4+ sediment. CT abdomen pelvis showed acute right pyelonephritis with findings suspicious for small developing renal abscesses, 4 mm nonobstructing ri ght distal ureteral stone no significant hydronephrosis, mild to moderate prostate enlargement with accompanying bladder wall thickening, hepatomegaly with diffuse fatty infiltration, cholelithiasis without evidence of acute cholecystitis. Medications/Allergies Home Medications Medication Instructions Recorded Confirmed Last Taken Type aspirin 81 mg capsule 81 mg PO DAILY #30 caps 07/31/21 10/12/21 Unknown Rx bumetanide 0.5 mg tablet 0.5 mg PO BID 07/31/21 10/12/21 1 Day Ago History ~07/30/21 metformin 500 mg tablet 500 mg PO BID 07/31/21 10/12/21 1 Day Ago History ~07/30/21 amlodipine 5 mg tablet 5 mg PO DAILY 08/20/21 10/12/21 Unknown History ondansetron HCl 4 mg tablet 4 mg PO Q8H PRN nausea and 10/11/22 Unknown Rx vomiting #15 tabs tramadol 50 mg tablet (Ultram) 50 mg PO Q6H PRN pain #15 tabs 10/11/22 Unknown Rx Allergies Allergy/AdvReac Type Severity Reaction Status Date / Time piperacillin [From Zosyn] Allergy ALGY-Bliste Verified 10/09/21 13:44 r tazobactam [From Zosyn] Allergy ALGY-Bliste Verified 10/09/21 13:44 r PFSH Acute PFSH: Medical History Cellulitis Right lower extremity Diabetes mellitus, type II Hypertension Nephrolithiasis Surgical History History of appendectomy as a child History of colonoscopy within 5 yrs Family History Father Diabetes Mother Diabetes Brother Diabetes Social History Alcohol intake: former Vitals/I&O/Wt Last Vital Signs Temp 99.6 F 02/10/23 18:12 Pulse 126 H 02/10/23 20:50 Resp 25 H 02/10/23 20:50 BP 116/70 02/10/23 20:50 Pulse Ox 91 02/10/23 20:50 O2 Del Method 02/10/23 20:50 O2 Flow Rate 2 02/10/23 18:12 02/10/23 02/10/23 02/10/23 06:59 14:59 22:59 Intake Total 1052 / 1052 Balance 1052 / 1052 Weight last 48 hrs Weight 104.326 kg Physical Exam Narrative: General: Alert oriented to self only, patient seen laying in bed, obese male HEENT: Normocephalic, atraumatic, EOMI, breathing comfortably on room air Cardio: Regular rate rhythm, normal S1-S2 Respiratory: Clear to auscultation b/l GI: Abdomen soft,CVA tenderness present,bowel sounds + Extremities: No edema noted Sepsis: Is patient septic: Yes Focused sepsis exam performed: Yes Focused sepsis exam: WBC 24,000, fever 102.2, tachycardic 139, respiratory rate 20, report of blood pressure 70/30 at home before arrival to ER Date exam was performed: 02/10/23 Data 02/10/23 18:05 02/10/23 18:05 Micro: Microbiology 02/10/23 18:55 Blood Culture - Preliminary Blood SPECIMEN COLLECTED 02/10/23 18:46 Blood Culture - Preliminary Blood SPECIMEN COLLECTED A&P Assessment and plan (1) Acute bacterial pyelonephritis: (2) Leukocytosis: Qualifiers: Leukocytosis type: unspecified Qualified Code(s): D72.829 - Elevated white blood cell count, unspecified (3) Tachycardia: (4) Acute alteration in mental status: (5) Hypomagnesemia: (6) Diabetes: (7) Cholelithiasis: (8) Obesity, morbid (more than 100 lbs over ideal weight or BMI > 40): (9) Abdominal pain: (10) Sepsis: (11) Acute kidney injury: (12) Metabolic encephalopathy: (13) BPH (benign prostatic hyperplasia): (14) Seizures: Plan #Sepsis secondary to acute right pyelonephritis with findings suspicious for small developing renal abscesses #Mild to moderate prostate enlargement with accompanying bladder wall thickening, chronic bladder outlet obstruction #Uncontrolled diabetes mellitus #History of seizures #Hypertension #Gross hematuria most likely secondary to acute infection #Nephrolithiasis, nonobstructing renal stone at distal ureter #Acute kidney injury, baseline normal #Hypomagnesemia #Altered mental status secondary to metabolic encephalopathy ? 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 ? We will place on vancomycin and aztreonam 2 g every 12 hours at this time ? Place Rodriguez catheter at this time for bladder irrigation however I do suspect hematuria is due to cystitis and pyelonephritis at this time. Consider urology consult ? Check blood cultures, urine culture ? Patient will require 2 weeks of IV antibiotics and repeat imaging after completion of treatment to ensure resolution of renal abscesses ? Tylenol 650 as needed for fever. May escalate to a gram 3 times daily if required ? Patient still tachycardic. Will administer another liter of normal saline and placed on IV fluids 125 cc/h thereafter ? Impending septic shock. We will hold antihypertensives. We will need to confirm home medications in a.m. from pharmacy ? Sinus tachycardia secondary to fever ? He will need follow-up with urology as an outpatient at discharge ? Sliding scale insulin low-dose intensity ACHS ? Check hemoglobin A1c. We will hold off on adding basal insulin. Will check blood sugars first ? SUNDEEP most likely secondary to prerenal cause secondary to sepsis versus chronic bladder outlet obstruction due to BPH. Continue on IV fluids and monitor kidney function at this time. -Check CBC every 12 hours transfuse to threshold less than 7. ? Patient not on any seizure medications at home however there is a history reported of it. We will continue to monitor. Placed on seizure precautions ? Expect patient's mental status to improve with treatment ? Check ammonia, vitamin B12, TSH ? Reviewed EKG personally. Sinus tachycardia and right bundle branch block noted. Full code Hold oncological DVT prophylaxis. SCDs to be placed. Attestations Medical Necessity Statement*: Greater than 2 midnight stay for management of sepsis secondary to acute right pyelonephritis Diagnoses Acute bacterial pyelonephritis N10; B96.89 Leukocytosis D72.829 Leukocytosis type: unspecified Tachycardia R00.0 Acute alteration in mental status R41.82 Hypomagnesemia E83.42 Diabetes E11.9 Cholelithiasis K80.20 Obesity, morbid (more than 100 lbs over ideal weight or BMI > 40) E66.01 Abdominal pain R10.9 Sepsis A41.9 Acute kidney injury N17.9 Metabolic encephalopathy G93.41 BPH (benign prostatic hyperplasia) N40.0 Seizures R56.9
--- NOTE | 2023-02-10 22:04 | PC.NURSE ---
Patient has had increased heart rate, 130s into 140s at times, Dr Yanez aware, no new orders.
[2023-02-10] MEDS: aztreonam 2,000 MG in sodium chloride 0.9% (plus) 100 ML 200 MG IV (22:44)
[2023-02-10] MEDS: sodium chloride 0.9% 1,000 ML 125 ML IV (22:49)
[2023-02-10 22:55] LABS: Lactic Sepsis W/Reflex 1.5 mmol/L (0.5-2.2)
[2023-02-10 23:02] LABS: Procalcitonin 11.41 ng/mL (0-0.5)
[2023-02-10] MEDS: acetaminophen 500 mg Tablet 1000 MG PO (23:42)
[2023-02-10] MEDS: vancomycin 1,500 MG/300 ML PIGGYBACK 200 MG IV (23:48)
[2023-02-10] MEDS: morphine 4 mg/mL SDV 1 mL 1 MG IVP (23:50)
[2023-02-11] VITALS (19 sets, daily range): BP systolic 103–159; BP diastolic 57–98; PULSE 109–135; RESP 16–22; TEMP 36.6–38.5; O2SAT 90–98
--- NOTE | 2023-02-11 00:05 | ECG_ITS ---
[facility] Test Date: 2023-02-11 Pat Name: Jose Canales Department: Room: 254 Gender: Male Licensed Physical Therapist: : [id number] Requested By: Yaw Yanez Order Number: [id number] Osmel MD: Micah Mazariegos M.D. Measurements Intervals Chauvin Rate: 110 P: 30 MD: 153 QRS: -53 QRSD: 158 T: 29 QT: 354 QTc: 480 Interpretive Statements SINUS TACHYCARDIA RIGHT BUNDLE BRANCH BLOCK [120+ ms QRS DURATION, UPRIGHT V1, 40+ ms S IN I/aVL/V4/V5/V6] LEFT ANTERIOR FASCICULAR BLOCK [QRS AXIS <= -45, QR IN I, RS IN II] Compared to ECG 02/10/2023 20:17:20 No significant changes Electronically Signed On 02-11-2023 16:23:34 CDT by Micah Mazariegos M.D. [email or web address]
[2023-02-11 00:51] LABS: Thyroid Stimulating Hormone 1.43 uIU/mL (0.27-4.20)
[2023-02-11 01:11] LABS: Troponin 5 6HR 34.25 ng/L (0-15)
[2023-02-11 01:13] LABS: Ammonia 29 umol/L (16-60)
[2023-02-11 01:17] LABS: Troponin 5 6HR Delta -7.75 ng/L (0-12)
[2023-02-11 01:42] LABS: Vitamin B12 356 pg/mL (232-1245)
[2023-02-11] MEDS: morphine 4 mg/mL SDV 1 mL 1 MG IVP ×2 (06:11→16:34)
[2023-02-11] MEDS: sodium chloride 0.9% 1,000 ML 125 ML IV ×2 (06:15→19:46)
[2023-02-11 06:23] LABS: Glucose Point of Care 155 mg/dL (70-110)
[2023-02-11 08:19] LABS: Basophils % 0.2 %; Hematocrit 43.2 % (42.0-52.0); Hemoglobin 14.5 g/dL (11.7-16.6); Lymphocytes # 0.6 10^3/uL (0.8-4.8); Lymphocytes % 3.7 %; Mean Corpuscular HGB Conc 33.6 g/dL (30.0-36.0); Mean Corpuscular Hemoglobin 31.4 pg (28.0-34.0); Mean Corpuscular Volume 93.5 fl (80-94); Mean Platelet Volume 10.3 fL (7.4-10.4); Monocytes # 0.8 10^3/uL (0.2-0.9); Monocytes % 4.7 %; Neutrophils # 14.59 10^3/uL (1.8-7.7); Neutrophils % 90.4 %; Nucleated Red Blood Cells % 0 %; Platelet Count 107 10^3/cmm (130-400); Red Blood Count 4.62 10^6/uL (4.1-5.3); Red Cell Distribution Width 13.1 % (12.1-15.1); White Blood Count 16.2 10^3/uL (4.0-10.0)
[2023-02-11] MEDS: insulin lispro 100 unit/1 mL SUBCUT ×2 (08:45→17:53)
[2023-02-11] MEDS: pantoprazole DR 40 mg Tablet PO (08:45)
[2023-02-11 08:46] LABS: Blood Urea Nitrogen 20 mg/dL (8-23); Calcium 8.2 mg/dL (8.5-10.5); Carbon Dioxide 22 mmol/L (22-29); Chloride 101 mmol/L (98-107); Glomerular Filtration Rate 67.8 mL/min (90-130); Glucose 161 mg/dL (65-115); Magnesium 1.8 mg/dL (1.7-2.3); Osmolality Calculated 286 mOsm/kg (285-295); Sodium 135 mmol/L (136-145)
[2023-02-11 08:50] LABS: Anion Gap 16.2 (5-19); Potassium 4.2 mmol/L (3.5-5.1)
--- NOTE | 2023-02-11 09:12 | PC.PHAR ---
pt states he takes care of his own medications-pt states he hasnt taken amlodipine 5mg daily filled 06/12/23 90d/s-bumetanide 0.5mg bid filled 06/06/23 90d/s and metformin 500mg bid filled 06/06/23 90d/s not taken for 6-8 months-pt states he had an old rx of norco 5-325mg that he was taking prn ext med history doesnt show when last filled
[2023-02-11 09:49] LABS: Estmated Average Glucose 169; Hemoglobin A1C 7.5 % (4.0-6.0)
--- NOTE | 2023-02-11 10:13 | P.CONIM_ITS ---
Providers/Reason For Consult Consulting Physician/Specialty*: Urology/Fowler Reason for Consult*: Right obstructive pyelonephritis with possible abscess formation Requesting Physician: Dr. Hackett Attending Physician: Dilip Hackett MD History of Present Illness History of Present Illness Jose Canales is a 62 year old male who I evaluated for the first time today at the request of Dr. Borja related to a 4 mm right distal ureteral stone causing obstruction and evidence of obstructive pyelonephritis, sepsis, possible early abscess formation in the right kidney. He is a multi stone former. Has never required treatment for stones. He has a history of recent recurrent UTIs with no definitive etiology identified per his report. Has been feeling poorly for several days now.Has had some confusion. Recommended cystoscopy, RIGHT: Ureteral stent emergently. Discussed possibility inability to obtain retrograde access which would necessitate transfer to institution with interventional radiology to have emergency percutaneous nephrostomy tube placement possible antegrade stent. I did not feel that this would be a likely occurrence but could not rule it out. Informed consent was obtained after discussion with the patient and his regarding cystoscopy, RIGHT: Ureteral stent placement. Review of Systems Const: Reports: fatigue and malaise Eyes: Denies: change in vision or eye discharge ENMT: Denies: odynophagia or hoarseness Card: Denies: chest pain or palpitations Resp: Reports: dyspnea; Denies: productive cough GI: Reports: abdominal pain : Reports: flank pain; Denies: hematuria Musc: Denies: joint redness Skin/Breast: Reports: other (Chronic swelling venous stasis changes lower extremities) Neuro: Reports: behavioral changes; Denies: Slurred speech present Psych: Denies: memory loss Endo: Denies: excessive sweating Chet/Lymph: Denies: easy bruising All/Imm: Denies: urticaria Medications/Allergies Home Medications Medication Instructions Recorded Confirmed Last Taken Type hydrocodone 5 mg-acetaminophen 325 1 tab PO Q4H PRN Pain 02/11/23 02/11/23 Unknown History mg tablet Allergies Allergy/AdvReac Type Severity Reaction Status Date / Time piperacillin [From Zosyn] Allergy ALGY-Bliste Verified 10/09/21 13:44 r tazobactam [From Zosyn] Allergy ALGY-Bliste Verified 10/09/21 13:44 r Current Medications Generic Name Dose Route Start Last Admin Trade Name Freq PRN Reason Stop Dose Admin Sodium Chloride 1,000 mls @ 125 mls/hr 02/10/23 22:24 02/11/23 06:15 Sodium Chloride 0.9% IV 125 mls/hr .Q8H STEPHANIE Administration Vancomycin/PEG/NADA/Lysine/Water 1,500 mg in 300 mls @ 200 mls/hr 02/11/23 00:00 02/11/23 01:21 Vancocin IV Infused Q24H STEPHANIE Infusion Insulin Human Lispro 0 unit 02/11/23 08:00 02/11/23 08:45 Insulin Lispro 100 Unit/1 Ml SUBCUT 2 unit WM&BEDTIME STEPHANIE Administration Protocol Morphine Sulfate 1 mg 02/10/23 22:24 02/11/23 06:11 Morphine 4 Mg/Ml Sdv 1 Ml IVP 1 mg Q4H PRN Administration SEVERE PAIN Pantoprazole Sodium 40 mg 02/11/23 09:00 02/11/23 08:[address] 40 Mg Tablet PO 40 mg DAILY STEPHANIE Administration PFSH Acute PFSH: Medical History (Updated 02/11/23 @ 12:55 by Dilip Hackett MD) Cellulitis Right lower extremity Diabetes mellitus, type II Hypertension Nephrolithiasis Urolithiasis Multi stone former Surgical History History of appendectomy as a child History of colonoscopy within 5 yrs Family History Father Diabetes Mother Diabetes Brother Diabetes Social History Alcohol intake: former Vitals/I&O/Wt Last Vital Signs Temp 99.4 F 02/11/23 07:55 Pulse 124 H 02/11/23 07:55 Resp 18 02/11/23 07:55 BP 141/76 02/11/23 07:55 Pulse Ox 96 02/11/23 07:55 O2 Del Method Nasal Cannula 02/11/23 04:00 O2 Flow Rate 2 02/10/23 18:12 02/10/23 02/11/23 02/11/23 22:59 06:59 14:59 Intake Total 1202 / 1202 2329.167 / 3531.167 Output Total 750 / 750 Balance 1202 / 1202 1579.167 / 2781.167 Weight last 48 hrs Weight 230 lb Physical Exam Const: COMMON NORMALS: alert and well nourished GENERAL APPEARANCE: well kempt and well developed ORIENTATION/CONSCIOUSNESS: not confused OTHER: Looks uncomfortable HENMT: COMMON NORMALS: normocephalic HEAD & SCALP: normal to inspection and normocephalic Eye: COMMON NORMALS: conjunctivae normal and no scleral icterus CONJUNCTIVA: Yes conjunctivae normal Neck/C-Spine: GENERAL: Yes normal visual inspection Lymph: OTHER: No groin lymphadenopathy Chest: OTHER: Normal chest movements Resp: COMMON NORMALS: normal respiratory effort EFFORT & INSPECTION: Yes able to speak in complete sentences, No labored and No Actively coughing Cardio: OTHER: Regular rhythm. Tachycardic : OTHER: Bladder nondistended Back/Pelvis: OTHER: Minimal right CVA tenderness Extremity: NARRATIVE EXTREMITY EXAM: Normal gait OTHER: Chronic venous stasis changes of his lower extremities right greater than sign left. Minimal pitting edema Neuro: COMMON NORMALS: no focal motor deficits SENSORIUM/ORIENTATION: Yes alert Psych: COMMON NORMALS: mental status grossly normal APPEARANCE: Yes grossly normal and Yes well kempt ATTITUDE: Yes calm and Yes engaged Skin: COMMON NORMALS: no jaundice Data 02/12/23 03:16 02/12/23 03:16 Micro: Microbiology 02/10/23 18:55 Blood Culture - Preliminary Blood SPECIMEN COLLECTED 02/10/23 18:46 Blood Culture - Preliminary Blood SPECIMEN COLLECTED A&P Assessment and plan (1) Obstructive pyelonephritis: Recurrent UTI history. Recently diagnosed 4 mm right ureteral stone with obstruction. Possible early abscess formation in the kidney on CT scan (2) Right distal ureteral calculus: 4 mm right distal ureteral stone complicated by obstructive pyelonephritis (3) Sepsis: Related to obstructive pyelonephritis (4) Diabetes: Not taking his medications (5) Acute kidney injury: (6) Urolithiasis: History of forming and passing probably 6 stones over the years. Consult Attestations Medical Necessity Statement: Emergency surgery for stent placement. Coding Level of Care Code Acute Code for [facility] Diagnoses Obstructive pyelonephritis N11.1 Right distal ureteral calculus N20.1 Sepsis A41.9 Diabetes E11.9 Acute kidney injury N17.9 Urolithiasis N20.9
--- NOTE | 2023-02-11 10:30 | SC_ITS ---
WS: [id number] EXAMINATION: C-arm [place] for Urology REASON FOR EXAM: intra-op stent COMPARISON: None available. ORDER DATE: 02/11/2023 10:30 AM FINDINGS: There is considerable blurring of the single image demonstrating a double-J ureteral catheter in the region of the renal pelvis. SC/C-arm FL for Urology IMPRESSION: Total fluoroscopy time 18.9 seconds
--- NOTE | 2023-02-11 10:31 | PC.NURSE ---
PT WENT TO OR AT [facility]OX. 1030
[2023-02-11] MEDS: sodium chloride 0.9% 1,000 ML 30 ML IV (10:48)
--- NOTE | 2023-02-11 11:13 | P.OP_ITS ---
Operative Report Date of procedure: February 11, 2023 Pre-op diagnosis: 1. Right obstructive pyelonephritis complicated by early renal abscess. 4 mm right distal ureteral stone Post-op diagnosis: 1. Right obstructive pyelonephritis complicated by early renal abscess. 4 mm right distal ureteral stone Procedure done: 1. Cystoscopy, RIGHT: Ureteral stent (7 [place] by 28 cm double-pigtail no string) Implants: Right ureteral stent Specimens removed/disposition: None Pathology: None Surgeon: Malcolm Estimated blood loss: None Urine output: Not measured Complications: None Findings: Anesthesia: General Condition: Stable Disposition: PACU Intraoperative findings: * Right ureteral stent placed without difficulty. * Stable throughout the procedure. Brief History: Haris is a very pleasant 62-year-old white male who I evaluated for for the first time today emergently for obstructive pyelonephritis on the right with a 4 mm distal ureteral stone and evidence of early abscess formation. I recommended emergency right ureteral stent placement Procedure: After emergent evaluation examination and obtaining of informed consent he was taken to the operating suite on 02/11/2023 where general anesthesia was administered without difficulty after appropriate timeout was performed, SCDs confirmed to be functioning, preoperative antibiotics administered, beta-ayesha protocol confirmed. Prepped and draped in usual sterile fashion in dorsolithotomy position pain careful attention to avoiding pressure points. 21 [place] cystoscope with 30 degree lens was introduced into the RIETHER meatus and advanced into the bladder to videoscopy. Bladder was systematically examined. No stones were seen. Bladder was not distended the right ureter orifice was easily identified. The flexible tip guidewire was easily advanced up the right ureter curling in the area consistent with the upper pole calyx. A 7 [place] by 28 cm double-pigtail stent was advanced over the guidewire through the cystoscope into appropriate position as confirmed via fluoroscopy and cystoscopy. The stent was draining purulent material. Bladder was drained procedure completed. Tolerated the procedure well without complications and was awakened in the operating room and returned recovery in stable condition. PLANS: 1. Continue antibiotic therapy for obstructive pyelonephritis possible renal abscess sepsis 2. Delayed treatment of the stone after recovers from infection
[2023-02-11 11:48] LABS: Glucose Point of Care 127 mg/dL (70-110)
[2023-02-11 12:21] LABS: Glucose Point of Care 125 mg/dL (70-110)
--- NOTE | 2023-02-11 12:32 | P.PN_ITS ---
Subjective Subjective: Patient was seen this morning, at bedside, according to nursing staff patient has had episodes of confusion over her night, confusion this morning, wandering the hallway, asking the nurses strange questions, such as looking for hammer, at bedside confirms he does report a history of smoking, smoking up to 3 packs/day, he is on 2 L, no oxygen at home no history of sleep apnea, he tells me that he had a significant infection that he has episodes of confusion, for the last few days, patient does not recognize this, he tells me that he had a significant infection UTI pyelonephritis a few years ago which required transfer to [facility] Vitals/I&O/Wt Last Vital Signs Temp 98.9 F 02/11/23 11:52 Pulse 135 H 02/11/23 11:52 Resp 18 02/11/23 11:52 BP 134/98 02/11/23 11:52 Pulse Ox 95 02/11/23 11:52 O2 Del Method Nasal Cannula 02/11/23 11:52 O2 Flow Rate 2 02/11/23 11:52 02/10/23 02/11/23 02/11/23 22:59 06:59 14:59 Intake Total 1202 / 1202 2329.167 / 3531.167 760 / 760 Output Total 750 / 750 2 / 2 Balance 1202 / 1202 1579.167 / 2781.167 758 / 758 Weight last 48 hrs Weight 104.326 kg Physical Exam Const: COMMON NORMALS: no acute distress EXAM LIMITATIONS: altered mental status ORIENTATION/CONSCIOUSNESS: Yes awake, Yes oriented to person and Yes oriented to place; not oriented to time Resp: COMMON NORMALS: normal respiratory effort, No retractions, No use of accessory muscles and clear to auscultation bilaterally AUSCULTATION: clear to auscultation bilaterally Cardio: COMMON NORMALS: regular rate, regular rhythm, S1 normal heart sound present and S2 normal heart sound present RATE: regular rate RHYTHM: regular rhythm HEART SOUNDS: S1 normal heart sound present and S2 normal heart sound present GI: COMMON NORMALS: Normal to inspection, nondistended, normoactive bowel sounds present and non-tender Extremity: COMMON NORMALS: no pedal edema Neuro: SENSORIUM/ORIENTATION: Yes oriented to person, Yes oriented to place and No oriented to time Psych: COMMON NORMALS: mental status grossly normal Data 02/11/23 08:07 02/11/23 08:07 Micro: Microbiology 02/10/23 18:55 Blood Culture - Preliminary Blood SPECIMEN COLLECTED 02/10/23 18:46 Blood Culture - Preliminary Blood SPECIMEN COLLECTED A&P Assessment and plan (1) Septic encephalopathy: (2) NSTEMI (non-ST elevated myocardial infarction): (3) COPD (chronic obstructive pulmonary disease): (4) Hypoxia: (5) Right ureteral stone: (6) Acute bacterial pyelonephritis: (7) Leukocytosis: Qualifiers: Leukocytosis type: unspecified Qualified Code(s): D72.829 - Elevated white blood cell count, unspecified (8) Tachycardia: (9) Acute alteration in mental status: (10) Hypomagnesemia: (11) Diabetes: (12) Cholelithiasis: (13) Obesity, morbid (more than 100 lbs over ideal weight or BMI > 40): (14) Abdominal pain: (15) Sepsis: (16) Acute kidney injury: (17) Metabolic encephalopathy: (18) BPH (benign prostatic hyperplasia): (19) Seizures: (20) Sinus tachycardia: (21) Obstructive uropathy: Plan #Sepsis secondary to acute right pyelonephritis with findings suspicious for small developing renal abscesses #Concern for sepsis, as there is evidence of a UTI, pyelonephritis, obstructive uropathy, renal abscess, tachycardia, leukocytosis, elevated Pro-Prabhjot, elevated troponins, #Right 4 mm ureteral stone, concerning for obstruction with abscess Septic encephalopathy# #Mild to moderate prostate enlargement with accompanying bladder wall thickening, chronic bladder outlet obstruction #Uncontrolled diabetes mellitus #History of seizures #Hypertension #Gross hematuria most likely secondary to acute infection #Nephrolithiasis, nonobstructing renal stone at distal ureter #Acute kidney injury, baseline normal #Hypomagnesemia #Altered mental status secondary to metabolic encephalopathy #Sinus tachycardia #Non-ST elevation SC, type II, likely from sepsis ? 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 ? We will place on vancomycin and aztreonam 2 g every 12 hours at this time ? Place Sol catheter at this time for bladder irrigation however I do suspect hematuria is due to cystitis and pyelonephritis at this time. --Urology consulted, patient going for cystoscopy ? Check blood cultures, urine culture ? Patient will require 2 weeks of IV antibiotics and repeat imaging after completion of treatment to ensure resolution of renal abscesses ? Tylenol 650 as needed for fever. May escalate to a gram 3 times daily if required ? Patient still tachycardic likely secondary to sepsis. Will administer another liter of normal saline and placed on IV fluids 125 cc/h thereafter ? Impending septic shock. We will hold antihypertensives. We will need to confirm home medications in a.m. from pharmacy ? Sinus tachycardia secondary to fever ? He will need follow-up with urology as an outpatient at discharge ? Sliding scale insulin low-dose intensity ACHS ? A1c 7.5 we will hold off on adding basal insulin. ? SUNDEEP most likely secondary to prerenal cause secondary to sepsis versus chronic bladder outlet obstruction due to BPH. Continue on IV fluids and monitor kidney function at this time. ? Patient not on any seizure medications at home however there is a history reported of it. We will continue to monitor. Placed on seizure precautions ? Expect patient's mental status to improve with treatment, neurochecks, aspiration precautions, NIH stroke scale -Ativan as needed for agitation -Spoke to nursing staff -Spoke to urology Full code Lovenox DVT prophylaxis. SCDs to be placed. Attestations Medical Necessity Statement*: Patient requires hospitalization for NSTEMI, sepsis, septic encephalopathy, ureteral stone, obstructive uropathy, renal abscess, pyelonephritis, Diagnoses Septic encephalopathy G93.41 NSTEMI (non-ST elevated myocardial infarction) I21.4 COPD (chronic obstructive pulmonary disease) J44.9 Hypoxia R09.02 Right ureteral stone N20.1 Acute bacterial pyelonephritis N10; B96.89 Leukocytosis D72.829 Leukocytosis type: unspecified Tachycardia R00.0 Acute alteration in mental status R41.82 Hypomagnesemia E83.42 Diabetes E11.9 Cholelithiasis K80.20 Obesity, morbid (more than 100 lbs over ideal weight or BMI > 40) E66.01 Abdominal pain R10.9 Sepsis A41.9 Acute kidney injury N17.9 Metabolic encephalopathy G93.41 BPH (benign prostatic hyperplasia) N40.0 Seizures R56.9 Sinus tachycardia R00.0 Obstructive uropathy N13.9
--- NOTE | 2023-02-11 12:37 | ANES.PREANE2 ---
Pre-Anesthetic Assessment Height/Weight: Height 1.7 m Weight 104.326 kg Temp Pulse Resp BP Pulse Ox O2 Del Method O2 Flow Rate 98.9 F 135 H 18 134/98 95 Nasal Cannula 2 02/11/23 11:52 02/11/23 11:52 02/11/23 11:52 02/11/23 11:52 02/11/23 11:52 02/11/23 11:52 02/11/23 11:52 Operation Date: 02/11/23 10:30 Proposed Procedures p Cystoscopy(Right) - Nicolás Fowler MD s Ureteral Stent Placement(Right) - Nicolás Fowler MD Familial anesthetic complications: none Was Beta Lena taken within 24 hours: N/A Was Clonidine taken within 24 hours: N/A Social Tobacco and No alcohol Exam alert, oriented x 3 and regular rate & rhythm Airway Submandibular: within normal limits Cervical ROM: within normal limits Mallampati: Class II Dentition: chipped Pulmonary Chronic Obstructive Pulmonary Disease CV/HEM Arrythmia, Coronary Artery Disease and Myocardial Infarction Metabolic Diabetes Mellitus, Hyperlipidemia and Morbid Obesity Neuropsych Seizure Anesthetic Plan ASA status: 3 Anesthesia: General Medications/Allergies Home Medications Medication Instructions Recorded Confirmed Last Taken Type hydrocodone 5 mg-acetaminophen 325 1 tab PO Q4H PRN Pain 02/11/23 02/11/23 Unknown History mg tablet Allergies Allergy/AdvReac Type Severity Reaction Status Date / Time piperacillin [From Zosyn] Allergy ALGY-Bliste Verified 10/09/21 13:44 r tazobactam [From Zosyn] Allergy ALGY-Bliste Verified 10/09/21 13:44 r Current Medications Generic Name Dose Route Start Last Admin Trade Name Freq PRN Reason Stop Dose Admin Sodium Chloride 1,000 mls @ 125 mls/hr 02/10/23 22:24 02/11/23 06:15 Sodium Chloride 0.9% IV 125 mls/hr .Q8H STEPHANIE Administration Vancomycin/PEG/NADA/Lysine/Water 1,500 mg in 300 mls @ 200 mls/hr 02/11/23 00:00 02/11/23 01:21 Vancocin IV Infused Q24H STEPHANIE Infusion Insulin Human Lispro 0 unit 02/11/23 08:00 02/11/23 08:45 Insulin Lispro 100 Unit/1 Ml SUBCUT 2 unit WM&BEDTIME STEPHANIE Administration Protocol Morphine Sulfate 1 mg 02/10/23 22:24 02/11/23 06:11 Morphine 4 Mg/Ml Sdv 1 Ml IVP 1 mg Q4H PRN Administration SEVERE PAIN Pantoprazole Sodium 40 mg 02/11/23 09:00 02/11/23 08:[address] 40 Mg Tablet PO 40 mg DAILY STEPHANIE Administration PFSH Anesthesia Medical History (Updated 02/11/23 @ 12:37 by Dilip Hackett MD) Cellulitis Right lower extremity Diabetes mellitus, type II Hypertension Nephrolithiasis Urolithiasis Multi stone former Surgical History History of appendectomy as a child History of colonoscopy within 5 yrs Family History Father Diabetes Mother Diabetes Brother Diabetes Social History Alcohol intake: former Data Anesthesia 02/11/23 08:07 02/11/23 08:07 Short CBC 02/10/23 02/11/23 02/11/23 Range/Units 18:05 06:47 08:07 WBC 22.7 H Cancelled 16.2 H (4.0-10.0) 10^3/uL Hgb 16.3 Cancelled 14.5 (11.7-16.6) g/dL Hct 46.5 Cancelled 43.2 (42.0-52.0) % MCV 89.1 Cancelled 93.5 (80-94) fl Plt Count 166 Cancelled 107 L D (130-400) 10^3/cmm Neut % (Auto) 90.8 Cancelled 90.4 % Neut # (Auto) 20.64 H Cancelled 14.59 H (1.8-7.7) 10^3/uL BMP 02/10/23 02/11/23 02/11/23 18:05 06:47 08:07 Sodium 131 L Cancelled 135 L Potassium 4.1 Cancelled 4.2 Chloride 92 L Cancelled 101 Carbon Dioxide 22 Cancelled 22 BUN 23 Cancelled 20 Creatinine 1.4 H Cancelled 1.1 Glucose 175 H Cancelled 161 H Calcium 8.8 Cancelled 8.2 L Cardiac Enzymes 02/10/23 02/10/2323 Range/Units 18:05 18:05 20:30 Troponin T Baseline 42 H (0-15) ng/L Troponin T 120 Minute 37.38 H (0-15) ng/L Delta Troponin T -4.62 L (0-10) ABS# Troponin T Hi Sens 6Hr (0-15) ng/L Troponin T Hi Sens 6Hr Delta (0-12) ng/L NT-Pro-B Natriuret Pep 718 H (0-125) pg/mL 02/11/23 Range/Units 00:48 Troponin T Baseline (0-15) ng/L Troponin T 120 Minute (0-15) ng/L Delta Troponin T (0-10) ABS# Troponin T Hi Sens 6Hr 34.25 H (0-15) ng/L Troponin T Hi Sens 6Hr Delta -7.75 L (0-12) ng/L NT-Pro-B Natriuret Pep (0-125) pg/mL Liver Function 02/10/23 Range/Units 18:05 Total Bilirubin 0.7 (0.15-1.2) mg/dL AST 28 (0-40) U/L ALT 18 (0-41) U/L Alkaline Phosphatase 68 (40-130) U/L Albumin 4.0 (3.5-5.2) g/dL Urine 02/10/23 Range/Units 19:00 Urine Color [place] (Yellow) Urine Appearance Cloudy A (CLEAR) Urine pH 5 (5-7) Ur Specific [place] 1.020 (1.005-1.030) Urine Protein 3+ H (Negative) Urine Glucose (UA) Norm (Normal) Urine Ketones 1+ H (Negative) Urine Nitrate Positive H (Negative) Urine Bilirubin 1+ H (Negative) Ur Leukocyte Esterase 1+ H (Negative) Urine RBC 0-4 H (0-2) /hpf Urine WBC >100 H (0-5) /hpf Coags 02/10/23 18:05 PT 15.50 H INR 1.19 Microbiology 02/10/23 18:55 Blood Culture - Preliminary Blood SPECIMEN COLLECTED 02/10/23 18:46 Blood Culture - Preliminary Blood SPECIMEN COLLECTED Cardiac Studies: Sestamibi Stress Test (Cardiology) 08/02/21
[2023-02-11] MEDS: enoxaparin 40 mg/0.4 mL Syringe SUBCUT (13:25)
--- NOTE | 2023-02-11 15:31 | ANE.PACU2 ---
Inpatient post-anesthesia follow up: Airway intact: Yes Vital signs: Temperature 98.9 F Pulse Rate 135 Respiratory Rate 18 Blood Pressure 134/98 Pulse Oximetry 95 Oxygen Delivery Me thod Nasal Cannula Oxygen Flow Rate 2 Fraction of Inspir ed Oxygen Hydration adequate: Yes Nausea and vomiting: No Pain level: 2 Mental status: Baseline
--- NOTE | 2023-02-11 15:39 | SUR.EXTENDED ---
pt took off bp cuff and the 1405 reading wasnt read
[2023-02-11 16:58] LABS: Glucose Point of Care 211 mg/dL (70-110)
[2023-02-11 17:57] LABS: Basophils % 0.2 %; Hematocrit 40.5 % (42.0-52.0); Hemoglobin 13.6 g/dL (11.7-16.6); Lymphocytes # 0.4 10^3/uL (0.8-4.8); Lymphocytes % 3.5 %; Mean Corpuscular HGB Conc 33.6 g/dL (30.0-36.0); Mean Corpuscular Hemoglobin 31.3 pg (28.0-34.0); Mean Corpuscular Volume 93.1 fl (80-94); Mean Platelet Volume 10.4 fL (7.4-10.4); Monocytes # 0.6 10^3/uL (0.2-0.9); Monocytes % 4.5 %; Neutrophils # 11.14 10^3/uL (1.8-7.7); Neutrophils % 91.2 %; Nucleated Red Blood Cells % 0 %; Platelet Count 132 10^3/cmm (130-400); Red Blood Count 4.35 10^6/uL (4.1-5.3); White Blood Count 12.2 10^3/uL (4.0-10.0)
[2023-02-11 21:35] LABS: Glucose Point of Care 136 mg/dL (70-110)
[2023-02-11] MEDS: aztreonam 2,000 MG in sodium chloride 0.9% (plus) 100 ML 200 MG IV (23:21)
[2023-02-12] VITALS (9 sets, daily range): BP systolic 128–149; BP diastolic 68–86; PULSE 92–118; RESP 15–24; TEMP 36.8–38.2; O2SAT 84–95
[2023-02-12] MEDS: morphine 4 mg/mL SDV 1 mL 1 MG IVP ×2 (00:10→19:41)
[2023-02-12] MEDS: vancomycin 1,500 MG/300 ML PIGGYBACK 200 MG IV ×2 (00:11→23:56)
[2023-02-12 00:35] LABS: Acinetobacter baumannii Not Detected (NOT DETECT); Bacteroides fragilis Not Detected (NOT DETECT); CTX-M Not Detected (NOT DETECT); Citrobacter Not Detected (NOT DETECT); Cronobacter sakazakii Not Detected (NOT DETECT); Enterobacter cloacae complex Not Detected (NOT DETECT); Enterobacter non cloacae Not Detected (NOT DETECT); Fusobacterium necrophorum Not Detected (NOT DETECT); Fusobacterium nucleatum Not Detected (NOT DETECT); Haemophilus influenzae Not Detected (NOT DETECT); IMP Resistance Gene Not Detected (NOT DETECT); KPC Resistance Gene Not Detected (NOT DETECT); Klebsiella pneumoniae group Not Detected (NOT DETECT); Morganella morganii Not Detected (NOT DETECT); NDM Resistance Gene Not Detected (NOT DETECT); Neisseria meningitidis Not Detected (NOT DETECT); OXA Resistance Gene Not Detected (NOT DETECT); Pan Candida Not Detected (NOT DETECT); Pan Gram-Positive Not Detected (NOT DETECT); Proteus mirabilis Not Detected (NOT DETECT); Pseudomonas aeruginosa Not Detected (NOT DETECT); Salmonella Not Detected (NOT DETECT); Serratia Not Detected (NOT DETECT); Serratia marcescens Not Detected (NOT DETECT); Stenotrophomonas maltophilia Not Detected (NOT DETECT); VIM Resistance Gene Not Detected (NOT DETECT)
[2023-02-12] MEDS: LORazepam 2 mg/mL INJ 1 mL 1 MG IVP ×3 (00:59→23:55)
[2023-02-12 04:00] LABS: Basophils % 0.3 %; Eosinophils % 0.1 %; Hematocrit 38.5 % (42.0-52.0); Hemoglobin 12.9 g/dL (11.7-16.6); Lymphocytes # 0.6 10^3/uL (0.8-4.8); Lymphocytes % 7.5 %; Mean Corpuscular HGB Conc 33.5 g/dL (30.0-36.0); Mean Corpuscular Hemoglobin 31.4 pg (28.0-34.0); Mean Corpuscular Volume 93.7 fl (80-94); Mean Platelet Volume 11.4 fL (7.4-10.4); Monocytes # 0.5 10^3/uL (0.2-0.9); Neutrophils # 6.55 10^3/uL (1.8-7.7); Neutrophils % 84.6 %; Nucleated Red Blood Cells % 0 %; Platelet Count 116 10^3/cmm (130-400); Red Blood Count 4.11 10^6/uL (4.1-5.3); Red Cell Distribution Width 13.1 % (12.1-15.1); White Blood Count 7.7 10^3/uL (4.0-10.0)
[2023-02-12] MEDS: sodium chloride 0.9% 1,000 ML 125 ML IV ×2 (04:10→20:08)
[2023-02-12 04:34] LABS: NT Pro B Type Natriuretic Pept 205 pg/mL (0-125); Procalcitonin 5.67 ng/mL (0-0.5)
[2023-02-12 04:45] LABS: Blood Urea Nitrogen 19 mg/dL (8-23); Calcium 8.1 mg/dL (8.5-10.5); Carbon Dioxide 23 mmol/L (22-29); Chloride 100 mmol/L (98-107); Glomerular Filtration Rate 75.7 mL/min (90-130); Glucose 137 mg/dL (65-115); Osmolality Calculated 282 mOsm/kg (285-295); Sodium 134 mmol/L (136-145)
[2023-02-12 04:46] LABS: Anion Gap 15.2 (5-19); Potassium 4.2 mmol/L (3.5-5.1)
[2023-02-12 06:42] LABS: Glucose Point of Care 156 mg/dL (70-110)
--- NOTE | 2023-02-12 07:00 | XR_ITS ---
WS: [id number] EXAMINATION: XR chest 1V portable [id number] REASON FOR EXAM: sob COMPARISON: None available. ORDER DATE: 02/12/2023 7:27 AM TECHNIQUE: A single, portable frontal chest x-ray was obtained. X-RAY FINDINGS: The lungs are clear. Pleural spaces are clear. No pleural effusions or pneumothorax. Cardiomediastinal silhouette is normal. No evidence for pulmonary edema. Soft tissue and osseous structures are unremarkable. No tubes or lines are present. XR/XR chest 1V portable [id number] IMPRESSION: Unremarkable frontal portable chest x-ray.
--- NOTE | 2023-02-12 07:43 | PM.PN ---
Subjective Subjective: Urology follow-up postop day #1 He states that he is feeling about the same. Still having some shortness of breath. Does not seem to be complaining of flank pain as much. Did have a fever last night. No hypotension. Tachycardic. Labs reviewed. Vitals/I&O/Wt Last Vital Signs Temp 98.3 F 02/12/23 03:57 Pulse 114 H 02/12/23 03:57 Resp 20 H 02/12/23 03:57 BP 128/78 02/12/23 03:57 Pulse Ox 93 02/12/23 03:57 O2 Del Method Nasal Cannula 02/12/23 03:57 O2 Flow Rate 2 02/11/23 11:52 02/11/23 02/12/23 02/12/23 22:59 06:59 14:59 Intake Total 1400 / 3400 Output Total 350 / 352 350 / 702 Balance -350 / 1648 1050 / 2698 Weight last 48 hrs Weight 230 lb Physical Exam Narrative: Alert no acute distress. Some tachypnea. Does not appear to be struggling. Chest x-ray being performed. Normal range of motion of extremities Still somewhat confused. Data 02/13/23 04:38 02/13/23 04:38 Micro: Microbiology 02/10/23 18:55 Blood Culture - Preliminary Blood 02/10/23 18:46 Blood Culture - Preliminary Blood NEGATIVE TO DATE A&P Assessment and plan (1) Obstructive pyelonephritis: Recurrent UTI history. Recently diagnosed 4 mm right ureteral stone with obstruction. Possible early abscess formation in the kidney on CT scan (2) Right distal ureteral calculus: 4 mm right distal ureteral stone complicated by obstructive pyelonephritis (3) Sepsis: Related to obstructive pyelonephritis (4) Diabetes: Not taking his medications (5) Acute kidney injury: (6) Urolithiasis: History of forming and passing probably 6 stones over the years. Attestations Medical Necessity Statement*: See attending Coding Level of Care Code Acute Code for [facility] Diagnoses Obstructive pyelonephritis N11.1 Right distal ureteral calculus N20.1 Sepsis A41.9 Diabetes E11.9 Acute kidney injury N17.9 Urolithiasis N20.9
[2023-02-12] MEDS: insulin lispro 100 unit/1 mL SUBCUT ×3 (07:46→17:35)
[2023-02-12] MEDS: aztreonam 2,000 MG in sodium chloride 0.9% (plus) 100 ML 200 MG IV ×2 (11:29→23:10)
--- NOTE | 2023-02-12 11:43 | PC.NURSE ---
Pt respiratory rate 24, O2 Sat 95% lungs clear in all wasserman, appears to be grunting, denies pain, reported to primary nurse.
[2023-02-12 12:06] LABS: Glucose Point of Care 175 mg/dL (70-110)
[2023-02-12] MEDS: enoxaparin 40 mg/0.4 mL Syringe SUBCUT (13:16)
[2023-02-12 14:53] LABS: Basophils % 0.4 %; Eosinophils % 0.4 %; Hematocrit 38.7 % (42.0-52.0); Hemoglobin 12.5 g/dL (11.7-16.6); Lymphocytes # 0.6 10^3/uL (0.8-4.8); Lymphocytes % 11.8 %; Mean Corpuscular HGB Conc 32.3 g/dL (30.0-36.0); Mean Corpuscular Hemoglobin 30.9 pg (28.0-34.0); Mean Corpuscular Volume 95.6 fl (80-94); Monocytes # 0.5 10^3/uL (0.2-0.9); Monocytes % 8.8 %; Neutrophils # 4.18 10^3/uL (1.8-7.7); Nucleated Red Blood Cells % 0 %; Platelet Count 106 10^3/cmm (130-400); Red Blood Count 4.05 10^6/uL (4.1-5.3); Red Cell Distribution Width 13.1 % (12.1-15.1); White Blood Count 5.4 10^3/uL (4.0-10.0)
--- NOTE | 2023-02-12 15:31 | PM.PN ---
Subjective Subjective: Patient was seen this morning, family member at bedside, denies any fevers, no chills, no cough Vitals/I&O/Wt Last Vital Signs Temp 98.7 F 02/12/23 11:51 Pulse 110 H 02/12/23 11:51 Resp 24 H 02/12/23 11:51 BP 133/86 02/12/23 11:51 Pulse Ox 95 02/12/23 11:51 O2 Del Method Nasal Cannula 02/12/23 11:51 O2 Flow Rate 2 02/12/23 11:51 02/12/23 02/12/23 02/12/23 06:59 14:59 22:59 Intake Total 1400 / 3400 1218 / 1218 Output Total 350 / 702 Balance 1050 / 2698 1218 / 1218 Weight last 48 hrs Weight 104.326 kg Physical Exam Const: COMMON NORMALS: no acute distress and patient oriented x3 Resp: COMMON NORMALS: normal respiratory effort, No retractions, No use of accessory muscles and clear to auscultation bilaterally AUSCULTATION: clear to auscultation bilaterally Cardio: COMMON NORMALS: regular rate, regular rhythm, S1 normal heart sound present and S2 normal heart sound present RATE: regular rate RHYTHM: regular rhythm HEART SOUNDS: S1 normal heart sound present and S2 normal heart sound present GI: COMMON NORMALS: Normal to inspection, nondistended, normoactive bowel sounds present and non-tender Extremity: COMMON NORMALS: no pedal edema Neuro: COMMON NORMALS: patient oriented x3 Psych: COMMON NORMALS: mental status grossly normal Data 02/12/23 14:42 02/12/23 03:16 Micro: Microbiology 02/12/23 08:57 Blood Culture - Preliminary Blood SPECIMEN COLLECTED 02/12/23 08:49 Blood Culture - Preliminary Blood SPECIMEN COLLECTED 02/10/23 18:55 Blood Culture - Preliminary Blood 02/10/23 18:46 Blood Culture - Preliminary Blood NEGATIVE TO DATE A&P Assessment and plan (1) Septic encephalopathy: (2) NSTEMI (non-ST elevated myocardial infarction): (3) COPD (chronic obstructive pulmonary disease): (4) Hypoxia: (5) Right ureteral stone: (6) Acute bacterial pyelonephritis: (7) Leukocytosis: Qualifiers: Leukocytosis type: unspecified Qualified Code(s): D72.829 - Elevated white blood cell count, unspecified (8) Tachycardia: (9) Acute alteration in mental status: (10) Hypomagnesemia: (11) Diabetes: (12) Cholelithiasis: (13) Obesity, morbid (more than 100 lbs over ideal weight or BMI > 40): (14) Abdominal pain: (15) Sepsis: (16) Acute kidney injury: (17) Metabolic encephalopathy: (18) BPH (benign prostatic hyperplasia): (19) Seizures: (20) Sinus tachycardia: (21) Obstructive uropathy: (22) Gram-negative bacteremia: Plan #Sepsis secondary to acute right pyelonephritis with findings suspicious for small developing renal abscesses #Concern for sepsis, as there is evidence of a UTI, pyelonephritis, obstructive uropathy, renal abscess, tachycardia, leukocytosis, elevated Pro-Prabhjot, elevated troponins, #Right 4 mm ureteral stone, concerning for obstruction with abscess #Status post right ureteral stent placement #Septic encephalopathy #Gram-negative bacteremia #Mild to moderate prostate enlargement with accompanying bladder wall thickening, chronic bladder outlet obstruction #Uncontrolled diabetes mellitus #History of seizures #Hypertension #Gross hematuria most likely secondary to acute infection #Nephrolithiasis, nonobstructing renal stone at distal ureter #Acute kidney injury, baseline normal #Hypomagnesemia #Altered mental status secondary to metabolic encephalopathy #Sinus tachycardia #Non-ST elevation SD, type II, likely from sepsis ? 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 We will place on vancomycin and aztreonam 2 g every 12 hours at this time ? Place Sol catheter at this time for bladder irrigation however I do suspect hematuria is due to cystitis and pyelonephritis at this time. --Urology consulted, patient going for cystoscopy ? Check blood cultures, urine culture ? Patient will require 2 weeks of IV antibiotics and repeat imaging after completion of treatment to ensure resolution of renal abscesses ? Tylenol 650 as needed for fever. May escalate to a gram 3 times daily if required ? Patient still tachycardic likely secondary to sepsis which is resolving ? Sinus tachycardia secondary to fever ? He will need follow-up with urology as an outpatient at discharge ? Sliding scale insulin low-dose intensity ACHS ? A1c 7.5 we will hold off on adding basal insulin. ? SUNDEEP most likely secondary to prerenal cause secondary to sepsis versus chronic bladder outlet obstruction due to BPH. Continue on IV fluids and monitor kidney function at this time. ? Patient not on any seizure medications at home however there is a history reported of it. We will continue to monitor. Placed on seizure precautions ? Expect patient's mental status to improve with treatment, neurochecks, aspiration precautions, NIH stroke scale -Ativan as needed for agitation -Plan for today follow blood cultures, continue antibiotic therapy, Full code Lovenox DVT prophylaxis. SCDs to be placed. Attestations Medical Necessity Statement*: Requires hospitalization for obstructive uropathy pyelonephritis with renal abscess with gram-negative bacteremia requiring IV antibiotics and High MDM includes number and complexity of problems actively addressed during encounter, amount and/or complexity of data reviewed/ordered and described risk of complication, morbidity or mortality of management as documented Diagnoses Septic encephalopathy G93.41 NSTEMI (non-ST elevated myocardial infarction) I21.4 COPD (chronic obstructive pulmonary disease) J44.9 Hypoxia R09.02 Right ureteral stone N20.1 Acute bacterial pyelonephritis N10; B96.89 Leukocytosis D72.829 Leukocytosis type: unspecified Tachycardia R00.0 Acute alteration in mental status R41.82 Hypomagnesemia E83.42 Diabetes E11.9 Cholelithiasis K80.20 Obesity, morbid (more than 100 lbs over ideal weight or BMI > 40) E66.01 Abdominal pain R10.9 Sepsis A41.9 Acute kidney injury N17.9 Metabolic encephalopathy G93.41 BPH (benign prostatic hyperplasia) N40.0 Seizures R56.9 Sinus tachycardia R00.0 Obstructive uropathy N13.9 Gram-negative bacteremia R78.81
[2023-02-12 16:51] LABS: Glucose Point of Care 154 mg/dL (70-110)
[2023-02-12 22:33] LABS: Glucose Point of Care 136 mg/dL (70-110)
[2023-02-13] VITALS (9 sets, daily range): BP systolic 130–157; BP diastolic 83–92; PULSE 95–116; RESP 15–30; TEMP 36.8–38.2; O2SAT 90–97
[2023-02-13] MEDS: sodium chloride 0.9% 1,000 ML 125 ML IV ×3 (05:04→19:58)
[2023-02-13 05:46] LABS: Basophils % 0.3 %; Eosinophils % 0.3 %; Hematocrit 37.9 % (42.0-52.0); Hemoglobin 12.4 g/dL (11.7-16.6); Lymphocytes # 0.8 10^3/uL (0.8-4.8); Lymphocytes % 13.9 %; Mean Corpuscular HGB Conc 32.7 g/dL (30.0-36.0); Mean Corpuscular Hemoglobin 30.6 pg (28.0-34.0); Mean Corpuscular Volume 93.6 fl (80-94); Mean Platelet Volume 11.6 fL (7.4-10.4); Monocytes # 0.6 10^3/uL (0.2-0.9); Monocytes % 10.5 %; Neutrophils # 4.31 10^3/uL (1.8-7.7); Neutrophils % 74.1 %; Nucleated Red Blood Cells % 0 %; Platelet Count 105 10^3/cmm (130-400); Red Blood Count 4.05 10^6/uL (4.1-5.3); Red Cell Distribution Width 13.1 % (12.1-15.1); White Blood Count 5.8 10^3/uL (4.0-10.0)
[2023-02-13 06:09] LABS: NT Pro B Type Natriuretic Pept 159 pg/mL (0-125); Procalcitonin 2.76 ng/mL (0-0.5)
[2023-02-13 06:20] LABS: Blood Urea Nitrogen 14 mg/dL (8-23); Calcium 8.2 mg/dL (8.5-10.5); Carbon Dioxide 24 mmol/L (22-29); Chloride 100 mmol/L (98-107); Glomerular Filtration Rate 85.5 mL/min (90-130); Glucose 129 mg/dL (65-115); Osmolality Calculated 284 mOsm/kg (285-295); Sodium 136 mmol/L (136-145)
[2023-02-13 07:15] LABS: Glucose Point of Care 167 mg/dL (70-110)
[2023-02-13] MEDS: insulin lispro 100 unit/1 mL SUBCUT ×3 (10:32→22:29)
[2023-02-13] MEDS: pantoprazole DR 40 mg Tablet PO (10:33)
[2023-02-13 10:35] LABS: Blood Gas Sample Type Arterial; Carboxyhemoglobin 1.7 %THgb (0.4-20.1); Oxygen Device ROOM AIR
--- NOTE | 2023-02-13 10:48 | P.PN_ITS ---
Subjective Subjective: Urology follow-up: Postop day #2 emergency right ureteral stent placement for obstructive pyelonephritis with right distal ureteral stone White count is normal. Creatinine 0.9 More confusion today. Some balance issues. can tell that he is not doing as well. Denies any flank pain. No vomiting. Seems to be tolerating the stent well. Discussed again the big picture related to ultimate requirement for treatment of the stone and stent removal. Generally 1 to 2 weeks post stent placement for obstructive pyelonephritis as the standard. Stent stays in until clear evidence of low chance of reobstruction from edema stone fragments etc. Vitals/I&O/Wt Last Vital Signs Temp 99.1 F 02/13/23 08:05 Pulse 95 02/13/23 08:05 Resp 15 02/13/23 08:05 BP 141/85 02/13/23 08:05 Pulse Ox 90 02/13/23 08:05 O2 Del Method Simple Mask 02/13/23 08:05 O2 Flow Rate 2 02/13/23 04:00 02/12/23 02/13/23 02/13/23 22:59 06:59 14:59 Intake Total 240 / 1698 2000 / 3698 120 / 120 Output Total 450 / 450 400 / 850 Balance -210 / 1248 1600 / 2848 120 / 120 Physical Exam Const: COMMON NORMALS: alert and well nourished GENERAL APPEARANCE: well kempt and well developed ORIENTATION/CONSCIOUSNESS: not confused OTHER: Looks uncomfortable Chest: OTHER: Normal chest movements Resp: COMMON NORMALS: normal respiratory effort EFFORT & INSPECTION: Yes able to speak in complete sentences, No labored and No Actively coughing Back/Pelvis: OTHER: Minimal right CVA tenderness Neuro: COMMON NORMALS: no focal motor deficits SENSORIUM/ORIENTATION: Yes alert OTHER: Not as steady on his feet. Psych: APPEARANCE: Yes grossly normal and Yes well kempt ATTITUDE: Yes calm and Yes engaged Skin: COMMON NORMALS: no jaundice Data 02/13/23 04:38 02/13/23 04:38 Micro: Microbiology 02/12/23 08:57 Blood Culture - Preliminary Blood NEGATIVE TO DATE 02/12/23 08:49 Blood Culture - Preliminary Blood NEGATIVE TO DATE 02/10/23 23:26 Urine Culture - Preliminary Urine,Voided A&P Assessment and plan (1) Obstructive pyelonephritis: Status post emergency stenting. (2) Right distal ureteral calculus: Still in planning for definitive treatment of the right distal ureteral stone once infection concerns have resolved. (3) Acute kidney injury: Improved Plan See HPI Attestations Medical Necessity Statement*: See attending Coding Level of Care Code Acute Code for [facility] Diagnoses Obstructive pyelonephritis N11.1 Right distal ureteral calculus N20.1 Acute kidney injury N17.9
[2023-02-13 10:52] LABS: Potassium Level - ABG 3.8 mmol/L (3.5-5.0); Total Hemoglobin 13.1 g/dL (14-18)
[2023-02-13 11:04] LABS: ABG PCO2 45.8 mmHg (35-45); ABG PH Result 7.39 (7.35-7.45); Arterial Blood Gas Hematocrit 40.3 % (42-52); Blood Gas Allen Test Pos; Blood Gas Operator Identificat MONRO; Blood Gas Sample Site Radial, right; HCO3 ABG 27.6 mmol/L (22-26); HGB O2 Sat 87.6 % (95-100); Ionized Calcium Level - ABG 1.1 mmol/L (1.1-1.4); Methemoglobin 0.9 % (0.4-1.5); Oxygen Saturation ABG 89.9; PO2 ABG 54.2 mmHg (80.0-100.0)
[2023-02-13] MEDS: LORazepam 2 mg/mL INJ 1 mL 1 MG IM (11:24)
[2023-02-13 11:36] LABS: Glucose Point of Care 168 mg/dL (70-110)
--- NOTE | 2023-02-13 13:37 | P.PN_ITS ---
Subjective Subjective: - According to nursing staff, overnight patient had episodes of confusion, agitation, was wandering the hallways -This morning patient was seen, he sitting up to the side of the bed, he tells me he did not sleep at all last night, he typically does not sleep until 2 AM, needs at home, at bedside tells me that he is quite confused and agitated this morning especially with her -He is alert to person, place, not to time, he can follow commands, but does have episodes of confusion during my question answering, he is bit encephalopathic -No facial droop, no slurring of his words, no focal weakness, PERRLA, -Patient's tells me that he typically gets like this when he has bad infections, he was like this when he had his last UTI -Patient's and patient was able to confirm with me that he does take IV Rocephin through the outpatient clinic, and has never had an adverse reactions to it -He is upset, tells me that he is not confused, that he knows where he is at, and that we are just making these things up Vitals/I&O/Wt Last Vital Signs Temp 98.3 F 02/13/23 12:04 Pulse 97 02/13/23 12:04 Resp 16 02/13/23 12:04 BP 157/92 02/13/23 12:04 Pulse Ox 90 02/13/23 12:04 O2 Del Method Room Air 02/13/23 12:04 O2 Flow Rate 2 02/13/23 04:00 02/12/23 02/13/23 02/13/23 22:59 06:59 14:59 Intake Total 240 / 1698 1999 / 3698 120 / 120 Output Total 450 / 450 400 / 850 Balance -210 / 1248 1600 / 2848 120 / 120 Physical Exam Const: COMMON NORMALS: no acute distress EXAM LIMITATIONS: altered mental status NUTRITIONAL APPEARANCE: overweight ORIENTATION/CONSCIOUSNESS: Yes awake, Yes oriented to person, Yes oriented to place and Yes confused; not oriented to time Eye: COMMON NORMALS: Equal, round and reactive pupils present PUPIL: Yes Equal, round and reactive pupils present Resp: COMMON NORMALS: normal respiratory effort, No retractions, No use of accessory muscles and clear to auscultation bilaterally AUSCULTATION: clear to auscultation bilaterally Cardio: COMMON NORMALS: regular rate, regular rhythm, S1 normal heart sound present and S2 normal heart sound present RATE: regular rate RHYTHM: regular rhythm HEART SOUNDS: S1 normal heart sound present and S2 normal heart sound present GI: COMMON NORMALS: Normal to inspection, nondistended, normoactive bowel sounds present and non-tender Extremity: COMMON NORMALS: no pedal edema Neuro: SENSORIUM/ORIENTATION: Yes oriented to person, Yes oriented to place and No oriented to time Data 02/13/23 04:38 02/13/23 04:38 Micro: Microbiology 02/12/23 08:57 Blood Culture - Preliminary Blood NEGATIVE TO DATE 02/12/23 08:49 Blood Culture - Preliminary Blood NEGATIVE TO DATE 02/10/23 23:26 Urine Culture - Preliminary Urine,Voided A&P Assessment and plan (1) Septic encephalopathy: (2) NSTEMI (non-ST elevated myocardial infarction): (3) COPD (chronic obstructive pulmonary disease): (4) Hypoxia: (5) Right ureteral stone: (6) Acute bacterial pyelonephritis: (7) Leukocytosis: Qualifiers: Leukocytosis type: unspecified Qualified Code(s): D72.829 - Elevated white blood cell count, unspecified (8) Tachycardia: (9) Acute alteration in mental status: (10) Hypomagnesemia: (11) Diabetes: (12) Cholelithiasis: (13) Obesity, morbid (more than 100 lbs over ideal weight or BMI > 40): (14) Abdominal pain: (15) Sepsis: (16) Acute kidney injury: (17) Metabolic encephalopathy: (18) BPH (benign prostatic hyperplasia): (19) Seizures: (20) Sinus tachycardia: (21) Obstructive uropathy: (22) Gram-negative bacteremia: Plan #Sepsis secondary to acute right pyelonephritis with findings suspicious for small developing renal abscesses #Concern for sepsis, as there is evidence of a UTI, pyelonephritis, obstructive uropathy, renal abscess, tachycardia, leukocytosis, elevated Pro-Prabhjot, elevated troponins, #Right 4 mm ureteral stone, concerning for obstruction with abscess #Status post right ureteral stent placement #Septic encephalopathy #Gram-negative bacteremia #Mild to moderate prostate enlargement with accompanying bladder wall thickening, chronic bladder outlet obstruction #Uncontrolled diabetes mellitus #History of seizures #Hypertension #Gross hematuria most likely secondary to acute infection #Nephrolithiasis, nonobstructing renal stone at distal ureter #Acute kidney injury, baseline normal #Hypomagnesemia #Altered mental status secondary to metabolic encephalopathy #Sinus tachycardia #Non-ST elevation [place], type II, likely from sepsis ? 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 We will place on vancomycin and aztreonam 2 g every 12 hours at this time ? Place Sol catheter at this time for bladder irrigation however I do suspect hematuria is due to cystitis and pyelonephritis at this time. -1 out of 3 blood cultures positive for gram-negative's ? Check blood cultures, urine culture ? Patient will require 2 weeks of IV antibiotics and repeat imaging after com pletion of treatment to ensure resolution of renal abscesses ? Tylenol 650 as needed for fever. May escalate to a gram 3 times daily if required ? He will need follow-up with urology as an outpatient at discharge ? Sliding scale insulin low-dose intensity ACHS ? A1c 7.5 we will hold off on adding basal insulin. ? SUNDEEP resolving. Continue on IV fluids and monitor kidney function at this time. ? Patient not on any seizure medications at home however there is a history reported of it. We will continue to monitor. Placed on seizure precautions -Acute encephalopathy persists, possibly second bacteremia, possibly second to hypercarbia elevated PCO2, start BiPAP, Ativan and Haldol as needed for anxiety and agitation, ? Expect patient's mental status to improve with treatment, neurochecks, asp iration precautions, NIH stroke scale -Low-grade fevers throughout the night, continue therapy -Plan for today follow blood cultures, continue antibiotic therapy, monitor mentation, continue BiPAP therapy, monitor, ABG, ammonia levels, Full code Lovenox DVT prophylaxis. SCDs to be placed. Attestations Medical Necessity Statement*: Requires hospitalization for persistent acute encephalopathy, with hypercarbic respiratory failure, sepsis, right ureteral stone gram-negative bacteremia Diagnoses Septic encephalopathy G93.41 NSTEMI (non-ST elevated myocardial infarction) I21.4 COPD (chronic obstructive pulmonary disease) J44.9 Hypoxia R09.02 Right ureteral stone N20.1 Acute bacterial pyelonephritis N10; B96.89 Leukocytosis D72.829 Leukocytosis type: unspecified Tachycardia R00.0 Acute alteration in mental status R41.82 Hypomagnesemia E83.42 Diabetes E11.9 Cholelithiasis K80.20 Obesity, morbid (more than 100 lbs over ideal weight or BMI > 40) E66.01 Abdominal pain R10.9 Sepsis A41.9 Acute kidney injury N17.9 Metabolic encephalopathy G93.41 BPH (benign prostatic hyperplasia) N40.0 Seizures R56.9 Sinus tachycardia R00.0 Obstructive uropathy N13.9 Gram-negative bacteremia R78.81
[2023-02-13] MEDS: aztreonam 2,000 MG in sodium chloride 0.9% (plus) 100 ML 200 MG IV ×2 (14:14→22:29)
[2023-02-13] MEDS: enoxaparin 40 mg/0.4 mL Syringe SUBCUT (14:15)
[2023-02-13 14:25] LABS: Ammonia 60 umol/L (16-60)
[2023-02-13 22:23] LABS: Glucose Point of Care 225 mg/dL (70-110)
[2023-02-13] MEDS: LORazepam 2 mg/mL INJ 1 mL 1 MG IVP (23:05)
[2023-02-14] VITALS (8 sets, daily range): BP systolic 122–160; BP diastolic 71–95; PULSE 57–110; RESP 15–23; TEMP 36.4–37.1; O2SAT 90–97
[2023-02-14] MEDS: vancomycin 1,500 MG/300 ML PIGGYBACK 200 MG IV (00:14)
--- NOTE | 2023-02-14 03:20 | PC.NURSE ---
Patient has been pulling out IV's and taking off oxygen throughout the night. Patient has been educated to leave lines in place and to keep oxygen on.
--- NOTE | 2023-02-14 04:02 | PC.NURSE ---
Patient came to nurse's station and became verbally aggressive towards staff. Patient did not have oxygen on. RT checked patients o2 level and patient was placed on a portable oxygen canister so he can walk the halls. Security arrived shortly after to witness his behavior and remained on site to supervise to make sure no further problems occurred.
--- NOTE | 2023-02-14 04:24 | PC.NURSE ---
Patient has been making inappropriate comments throughout the night. Deandra (ASHLEE) went into patient's room to empty trash and patient made inappropriate comment: I'm gonna need to search your pockets now, put your hands on the wall and I'll frisk you and I want to hear you squeal . Security was present to witness patient's behavior. supervisor model making was called and behavior was reported to her. supervisor model making went in with security to talk to patient and told him that it is inappropriate to speak to staff in that manner and that behavior will not be tolerated. Patient verbalized understanding and states the behavior will not happen again
[2023-02-14 05:12] LABS: Basophils % 0.4 %; Eosinophils # 0.1 10^3/uL (0.0-0.8); Eosinophils % 1.2 %; Hematocrit 40.4 % (42.0-52.0); Hemoglobin 12.8 g/dL (11.7-16.6); Lymphocytes # 0.8 10^3/uL (0.8-4.8); Lymphocytes % 15.9 %; Mean Corpuscular HGB Conc 31.7 g/dL (30.0-36.0); Mean Corpuscular Hemoglobin 30.5 pg (28.0-34.0); Mean Corpuscular Volume 96.2 fl (80-94); Mean Platelet Volume 10.4 fL (7.4-10.4); Monocytes # 0.7 10^3/uL (0.2-0.9); Neutrophils # 3.48 10^3/uL (1.8-7.7); Neutrophils % 68.5 %; Nucleated Red Blood Cells % 0 %; Platelet Count 146 10^3/cmm (130-400); Red Cell Distribution Width 13.1 % (12.1-15.1); White Blood Count 5.1 10^3/uL (4.0-10.0)
[2023-02-14 05:20] LABS: NT Pro B Type Natriuretic Pept 264 pg/mL (0-125)
[2023-02-14 05:30] LABS: Blood Urea Nitrogen 13 mg/dL (8-23); C Reactive Protein 148.6 mg/L (0.0-4.9); Calcium 8.4 mg/dL (8.5-10.5); Carbon Dioxide 26 mmol/L (22-29); Chloride 98 mmol/L (98-107); Creatinine Clr Calc Pharmacy 110.2162; Glucose 126 mg/dL (65-115); Osmolality Calculated 278 mOsm/kg (285-295); Sodium 133 mmol/L (136-145)
[2023-02-14] MEDS: sodium chloride 0.9% 1,000 ML 125 ML IV ×2 (05:30→09:20)
[2023-02-14 06:45] LABS: Glucose Point of Care 120 mg/dL (70-110)
--- NOTE | 2023-02-14 09:18 | PM.PN ---
Subjective Subjective: Urology follow-up: Postop day #3, emergency stent placement for obstructive pyelonephritis and right distal ureteral stone Improving mentation. Still having some confusion but much better today. Got more sleep. Thinks that has made a difference. No evidence of progressive infectious concerns. White count is fine. He is remained afebrile. Reviewed again the big picture and the plans for intervention for the stone and stent sometime in the next 1 to 2 weeks pending his recovery We will try to pick a day before his discharge and have that set for outpatient surgery Vitals/I&O/Wt Last Vital Signs Temp 97.8 F 02/14/23 08:00 Pulse 99 02/14/23 08:30 Resp 16 02/14/23 08:30 BP 144/95 02/14/23 08:00 Pulse Ox 94 02/14/23 08:30 O2 Del Method Nasal Cannula 02/14/23 08:30 O2 Flow Rate 2 02/14/23 04:00 FiO2 2 02/14/23 08:30 02/13/23 02/14/23 02/14/23 22:59 06:59 14:59 Intake Total 716.667 / 8960.203 5615 / 3816.667 Output Total 900 / 900 1250 / 2150 Balance -183.333 / 1036.667 630 / 1666.667 Physical Exam Narrative: More lucid today. No acute distress. Pleasant cooperative throughout exam No labored respiration. Good movement of all extremities. Data 02/14/23 04:38 02/14/23 04:38 Micro: Microbiology 02/12/23 08:57 Blood Culture - Preliminary Blood NEGATIVE TO DATE 02/12/23 08:49 Blood Culture - Preliminary Blood NEGATIVE TO DATE A&P Assessment and plan (1) Obstructive pyelonephritis: Status post emergency stenting. No evidence of infectious progression. (2) Right distal ureteral calculus: Still in planning for definitive treatment of the right distal ureteral stone once he has recovered (3) Acute kidney injury: Resolved Plan See HPI Explained in detail to the patient and his the plans. They are on board. Attestations Medical Necessity Statement*: See attending Coding Level of Care Code Acute Code for [facility] Diagnoses Obstructive pyelonephritis N11.1 Right distal ureteral calculus N20.1 Acute kidney injury N17.9
[2023-02-14] MEDS: aztreonam 2,000 MG in sodium chloride 0.9% (plus) 100 ML 200 MG IV ×2 (11:29→22:32)
[2023-02-14 11:59] LABS: Glucose Point of Care 207 mg/dL (70-110)
[2023-02-14] MEDS: insulin lispro 100 unit/1 mL SUBCUT (12:37)
[2023-02-14] MEDS: enoxaparin 40 mg/0.4 mL Syringe SUBCUT (12:37)
--- NOTE | 2023-02-14 15:08 | PM.PN ---
Subjective Subjective: patient was seen this morning his mentation has significantly improved, he is sitting up to the side of the bed, he still reports seeing things move in his room Vitals/I&O/Wt Last Vital Signs Temp 98.0 F 02/14/23 12:00 Pulse 72 02/14/23 12:00 Resp 15 02/14/23 12:00 BP 129/74 02/14/23 12:00 Pulse Ox 90 02/14/23 12:00 O2 Del Method Nasal Cannula 02/14/23 08:30 O2 Flow Rate 2 02/14/23 04:00 FiO2 2 02/14/23 08:30 02/14/23 02/14/23 02/14/23 06:59 14:59 22:59 Intake Total 1880 / 3816.667 939.167 / 939.167 Output Total 1250 / 2150 Balance 630 / 1666.667 939.167 / 939.167 Physical Exam Const: COMMON NORMALS: no acute distress and patient oriented x3 Resp: COMMON NORMALS: normal respiratory effort, No retractions, No use of accessory muscles and clear to auscultation bilaterally AUSCULTATION: clear to auscultation bilaterally Cardio: COMMON NORMALS: regular rate, regular rhythm, S1 normal heart sound present and S2 normal heart sound present RATE: regular rate RHYTHM: regular rhythm HEART SOUNDS: S1 normal heart sound present and S2 normal heart sound present GI: COMMON NORMALS: Normal to inspection, nondistended, normoactive bowel sounds present and non-tender Extremity: COMMON NORMALS: no pedal edema Neuro: COMMON NORMALS: patient oriented x3 Psych: COMMON NORMALS: mental status grossly normal Data 02/14/23 04:38 02/14/23 04:38 Micro: Microbiology 02/10/23 23:26 Urine Culture - Final Urine,Voided 02/10/23 18:55 Blood Culture - Preliminary Blood Escherichia coli A&P Assessment and plan (1) Septic encephalopathy: (2) NSTEMI (non-ST elevated myocardial infarction): (3) COPD (chronic obstructive pulmonary disease): (4) Hypoxia: (5) Right ureteral stone: (6) Acute bacterial pyelonephritis: (7) Leukocytosis: Qualifiers: Leukocytosis type: unspecified Qualified Code(s): D72.829 - Elevated white blood cell count, unspecified (8) Tachycardia: (9) Acute alteration in mental status: (10) Hypomagnesemia: (11) Diabetes: (12) Cholelithiasis: (13) Obesity, morbid (more than 100 lbs over ideal weight or BMI > 40): (14) Abdominal pain: (15) Sepsis: (16) Acute kidney injury: (17) Metabolic encephalopathy: (18) BPH (benign prostatic hyperplasia): (19) Seizures: (20) Sinus tachycardia: (21) Obstructive uropathy: (22) Gram-negative bacteremia: Plan #Sepsis secondary to acute right pyelonephritis with findings suspicious for small developing renal abscesses #Concern for sepsis, as there is evidence of a UTI, pyelonephritis, obstructive uropathy, renal abscess, tachycardia, leukocytosis, elevated Pro-Prabhjot, elevated troponins, #Right 4 mm ureteral stone, concerning for obstruction with abscess #Status post right ureteral stent placement #Septic encephalopathy #Gram-negative bacteremia #Mild to moderate prostate enlargement with accompanying bladder wall thickening, chronic bladder outlet obstruction #Uncontrolled diabetes mellitus #History of seizures #Hypertension #Gross hematuria most likely secondary to acute infection #Nephrolithiasis, nonobstructing renal stone at distal ureter #Acute kidney injury, baseline normal #Hypomagnesemia #Altered mental status secondary to metabolic encephalopathy #Sinus tachycardia #Non-ST elevation [place], type II, likely from sepsis ? 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 stop vancomycin and last dose of aztreonam tonight, switch to rocephin tommorow ? coutinue Sol catheter at this time for bladder irrigation however I do suspect hematuria is due to cystitis and pyelonephritis at this time. -1 out of 3 blood cultures positive for gram-negative's, ecoli, sensitive to rocephin ? repeat blood cultures negative, urine culture negative ? Patient will require 2 weeks of IV antibiotics and repeat imaging after completion of treatment to ensure resolution of renal abscesses ? Tylenol 650 as needed for fever. May escalate to a gram 3 times daily if required ? He will need follow-up with urology as an outpatient at discharge ? Sliding scale insulin low-dose intensity ACHS ? A1c 7.5 we will hold off on adding basal insulin. ? SUNDEEP resolving. Continue on IV fluids and monitor kidney function at this time. ? Patient not on any seizure medications at home however there is a history reported of it. We will continue to monitor. Placed on seizure precautions -Acute encephalopathy resolving, possibly second bacteremia, possibly second to hypercarbia elevated PCO2, start BiPAP, Ativan and Haldol as needed for anxiety and agitation, ? Expect patient's mental status to improve with treatment, neurochecks, aspiration precautions, NIH stroke scale -Low-grade fevers throughout the night, continue therapy -Plan for today follow blood cultures, continue antibiotic therapy, monitor mentation, continue BiPAP therapy, will order echo and carotid artery ultrasound Full code Lovenox DVT prophylaxis. SCDs to be placed. Attestations Medical Necessity Statement*: patient requires hospitalization for ecoli bacteremia, ams Coding Level of Care Code Acute Code for [facility] Diagnoses Septic encephalopathy G93.41 NSTEMI (non-ST elevated myocardial infarction) I21.4 COPD (chronic obstructive pulmonary disease) J44.9 Hypoxia R09.02 Right ureteral stone N20.1 Acute bacterial pyelonephritis N10; B96.89 Leukocytosis D72.829 Leukocytosis type: unspecified Tachycardia R00.0 Acute alteration in mental status R41.82 Hypomagnesemia E83.42 Diabetes E11.9 Cholelithiasis K80.20 Obesity, morbid (more than 100 lbs over ideal weight or BMI > 40) E66.01 Abdominal pain R10.9 Sepsis A41.9 Acute kidney injury N17.9 Metabolic encephalopathy G93.41 BPH (benign prostatic hyperplasia) N40.0 Seizures R56.9 Sinus tachycardia R00.0 Obstructive uropathy N13.9 Gram-negative bacteremia R78.81
--- NOTE | 2023-02-14 15:14 | USCV_ITS ---
Jose Canales Age: 62 Gender: M : 1960 Exam Date: 02/14/2023 16:46 Ordering Phys: Dilip Hackett MD Technologist: NICHOLE Exam Location: [facility] [place] Indication: ams BP: / HR: 95 Rhythm: Sinus Technical Quality: Adequate MEASUREMENTS (Male / Female) Normal Values 2D ECHO LV Diastolic Diameter PLAX 6.0 cm 4.2 - 5.9 / 3.9 - 5.3 cm LV Systolic Diameter PLAX 4.3 cm IVS Diastolic Thickness 1.1 cm 0.6 - 1.0 / 0.6 - 0.9 cm IVS Systolic Thickness 1.3 cm LVPW Diastolic Thickness 1.1 cm 0.6 - 1.0 / 0.6 - 0.9 cm LVPW Systolic Thickness 1.2 cm LVOT Diameter 2.5 cm LV Ejection Fraction 2D Teich 54.7 % LV Ejection Fraction MOD 2C 43.7 % LV Ejection Fraction 2C AL 43.1 % LA Diameter 4.0 cm IVC Diameter 3.2 cm M-MODE Aortic Annulus Diameter 3.1 cm LA Ao Ratio MM 1.5 DOPPLER AV Peak Velocity 181.0 cm/s LVOT Peak Velocity 126.0 cm/s AV Area Cont Eq vti 3.4 cm squared AV Area Cont Eq pk 3.5 cm squared MV Area PHT 3.5 cm squared Mitral E to A Ratio 1.1 MV E' Velocity 56.5 cm/s Mitral E to MV E' Ratio 12.1 Mitral E to LV E' Lateral Ratio 8.9 Mitral E to LV E' Septal Ratio 19.0 TV Peak E Velocity 60.0 cm/s PV Peak Velocity 73.0 cm/s FINDINGS Left Ventricle LV systolic function is grossly normal. Regional wall motion abnormalities cannot accurately be assessed because of poor ultrasonic windows. Right Ventricle Normal in size and function Right Atrium Normal in size Left Atrium Normal in size Mitral Valve Grossly normal. Mild mitral regurgitation. Aortic Valve Not well visualized. No significant stenosis or regurgitation. Tricuspid Valve Not well visualized Pulmonic Valve Not well visualized Pericardium Normal Aorta Normal in size IVC Dilated CONCLUSIONS Technically limited quality echocardiogram because of poor ultrasonic windows. LV systolic function is grossly normal. Regional wall motion abnormalities cannot accurately be assessed because of poor ultrasonic windows. Mild mitral regurgitation Valvular structures are not well-visualized IVC appears to be dilated. Accurate comparison with prior echocardiogram from 2013 is not possible because of limited visualization. Micah Mazariegos MD (Electronically Signed) Final Date: 15 February 2023 12:13 S
--- NOTE | 2023-02-14 15:48 | PC.NURSE ---
This nurse attempted to put quality assurance monitor chassis on patient. Patient stated I've already had my heart checked out and it's fine. . This nurse educated patient on the need and use for telemetry. Patient refused again.
[2023-02-14 16:59] LABS: Glucose Point of Care 118 mg/dL (70-110)
[2023-02-14] MEDS: perflutren protein-a microsphr 0.22 mg/mL SDV 3 mL IV (17:49)
[2023-02-14 20:53] LABS: Glucose Point of Care 133 mg/dL (70-110)
[2023-02-14 23:56] LABS: Vancomycin Trough < 4.0 ug/mL (10-15)
--- NOTE | 2023-02-15 00:41 | PC.NURSE ---
pt noted to have BLE edema +2 and fine crackles to bilateral bases posteriorly in lungs. dr genao notified. fluid discontinued per physician order. will continue to monitor
[2023-02-15 05:43] LABS: Basophils % 0.4 %; Eosinophils # 0.1 10^3/uL (0.0-0.8); Eosinophils % 2.1 %; Hematocrit 39.6 % (42.0-52.0); Hemoglobin 12.8 g/dL (11.7-16.6); Lymphocytes # 1.1 10^3/uL (0.8-4.8); Lymphocytes % 19.1 %; Mean Corpuscular HGB Conc 32.3 g/dL (30.0-36.0); Mean Corpuscular Hemoglobin 30.5 pg (28.0-34.0); Mean Corpuscular Volume 94.5 fl (80-94); Mean Platelet Volume 10.3 fL (7.4-10.4); Monocytes # 0.6 10^3/uL (0.2-0.9); Monocytes % 10.7 %; Neutrophils # 3.78 10^3/uL (1.8-7.7); Neutrophils % 66.1 %; Nucleated Red Blood Cells % 0 %; Platelet Count 199 10^3/cmm (130-400); Red Blood Count 4.19 10^6/uL (4.1-5.3); Red Cell Distribution Width 12.9 % (12.1-15.1); White Blood Count 5.7 10^3/uL (4.0-10.0)
[2023-02-15 06:08] LABS: Anion Gap 15.2 (5-19); Blood Urea Nitrogen 15 mg/dL (8-23); C Reactive Protein 85.9 mg/L (0.0-4.9); Calcium 8.5 mg/dL (8.5-10.5); Carbon Dioxide 27 mmol/L (22-29); Chloride 103 mmol/L (98-107); Glomerular Filtration Rate 75.7 mL/min (90-130); Glucose 154 mg/dL (65-115); NT Pro B Type Natriuretic Pept 134 pg/mL (0-125); Osmolality Calculated 296 mOsm/kg (285-295); Potassium 4.2 mmol/L (3.5-5.1); Sodium 141 mmol/L (136-145)
[2023-02-15 06:58] LABS: Glucose Point of Care 130 mg/dL (70-110)
[2023-02-15 08:00] VITALS: BP 153/84; PULSE 89; RESP 17; TEMP 36.7; O2SAT 93
[2023-02-15] MEDS: cefTRIAXone 1,000 MG in sodium chloride 0.9% (plus) 50 ML 100 MG IV (08:40)
[2023-02-15] MEDS: pantoprazole DR 40 mg Tablet PO (08:40)
[2023-02-15 11:59] LABS: Glucose Point of Care 173 mg/dL (70-110)
[2023-02-15 12:00] VITALS: BP 135/74; PULSE 104; RESP 18; TEMP 36.8; O2SAT 93
[2023-02-15] MEDS: enoxaparin 40 mg/0.4 mL Syringe SUBCUT (12:17)
[2023-02-15] MEDS: insulin lispro 100 unit/1 mL SUBCUT ×3 (12:17→21:14)
--- NOTE | 2023-02-15 15:50 | P.PN_ITS ---
Subjective Subjective: Patient was seen this morning, he has no complaints this morning, no episodes of confusion Vitals/I&O/Wt Last Vital Signs Temp 98.3 F 02/15/23 12:00 Pulse 104 H 02/15/23 12:00 Resp 18 02/15/23 12:00 BP 135/74 02/15/23 12:00 Pulse Ox 93 02/15/23 12:00 O2 Del Method Nasal Cannula 02/14/23 08:30 O2 Flow Rate 2 02/14/23 22:40 FiO2 2 02/14/23 08:30 02/15/23 02/15/23 02/15/23 06:59 14:59 22:59 Intake Total 100 / 2879.167 770 / 770 Output Total 250 / 2050 Balance -150 / 829.167 770 / 770 Physical Exam Const: COMMON NORMALS: no acute distress and patient oriented x3 Resp: COMMON NORMALS: normal respiratory effort, No retractions, No use of accessory muscles and clear to auscultation bilaterally AUSCULTATION: clear to auscultation bilaterally Cardio: COMMON NORMALS: regular rate, regular rhythm, S1 normal heart sound present and S2 normal heart sound present RATE: regular rate RHYTHM: regular rhythm HEART SOUNDS: S1 normal heart sound present and S2 normal heart sound present GI: COMMON NORMALS: Normal to inspection, nondistended, normoactive bowel sounds present and non-tender Extremity: COMMON NORMALS: no pedal edema Neuro: COMMON NORMALS: patient oriented x3 Psych: COMMON NORMALS: mental status grossly normal Urinary Catheter Management: Sol: Cath Placed During This Visit: no Data 02/15/23 05:12 02/15/23 05:12 Micro: Microbiology 02/10/23 18:55 Blood Culture - Final Blood Escherichia coli 02/10/23 23:26 Urine Culture - Final Urine,Voided A&P Assessment and plan (1) Septic encephalopathy: (2) NSTEMI (non-ST elevated myocardial infarction): (3) COPD (chronic obstructive pulmonary disease): (4) Hypoxia: (5) Right ureteral stone: (6) Acute bacterial pyelonephritis: (7) Leukocytosis: Qualifiers: Leukocytosis type: unspecified Qualified Code(s): D72.829 - Elevated white blood cell count, unspecified (8) Tachycardia: (9) Acute alteration in mental status: (10) Hypomagnesemia: (11) Diabetes: (12) Cholelithiasis: (13) Obesity, morbid (more than 100 lbs over ideal weight or BMI > 40): (14) Abdominal pain: (15) Sepsis: (16) Acute kidney injury: (17) Metabolic encephalopathy: (18) BPH (benign prostatic hyperplasia): (19) Seizures: (20) Sinus tachycardia: (21) Obstructive uropathy: (22) Gram-negative bacteremia: Plan #Sepsis secondary to acute right pyelonephritis with findings suspicious for small developing renal abscesses #Concern for sepsis, as there is evidence of a UTI, pyelonephritis, obstructive uropathy, renal abscess, tachycardia, leukocytosis, elevated Pro-Prabhjot, elevated troponins, #Right 4 mm ureteral stone, concerning for obstruction with abscess #Status post right ureteral stent placement #Septic encephalopathy #Gram-negative bacteremia #Mild to moderate prostate enlargement with accompanying bladder wall thickening, chronic bladder outlet obstruction #Uncontrolled diabetes mellitus #History of seizures #Hypertension #Gross hematuria most likely secondary to acute infection #Nephrolithiasis, nonobstructing renal stone at distal ureter #Acute kidney injury, baseline normal #Hypomagnesemia #Altered mental status secondary to metabolic encephalopathy #Sinus tachycardia #Non-ST elevation CA, type II, likely from sepsis ? 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 stop vancomycin and last dose of aztreonam last night, currently receiving Rocephin 1 g every 24 hours ? coutinue Sol catheter at this time for bladder irrigation however I do suspect hematuria is due to cystitis and pyelonephritis at this time. -1 out of 3 blood cultures positive for gram-negative's, ecoli, sensitive to rocephin ? repeat blood cultures negative, urine culture negative ? Patient will require 2 weeks of IV antibiotics since stent placement, thus 10 more days starting tomorrow PICC line to be placed tomorrow ? Tylenol 650 as needed for fever. May escalate to a gram 3 times daily if required ? He will need follow-up with urology as an outpatient at discharge ? Sliding scale insulin low-dose intensity ACHS ? A1c 7.5 we will hold off on adding basal insulin. ? SUNDEEP resolving. Continue on IV fluids and monitor kidney function at this time. ? Patient not on any seizure medications at home however there is a history reported of it. We will continue to monitor. Placed on seizure precautions -Acute encephalopathy resolving, possibly second bacteremia, possibly second to hypercarbia elevated PCO2, start BiPAP, Ativan and Haldol as needed for anxiety and agitation, ? Expect patient's mental status to improve with treatment, neurochecks, aspi ration precautions, NIH stroke scale -Low-grade fevers throughout the night, continue therapy -Plan for today follow blood cultures, continue antibiotic therapy, monitor mentation, continue BiPAP therapy, Full code Lovenox DVT prophylaxis. SCDs to be placed. Attestations Medical Necessity Statement*: Patient requires hospitalization for gram-negative bacteremia, E. coli, with encephalopathy, with stent placement Diagnoses Septic encephalopathy G93.41 NSTEMI (non-ST elevated myocardial infarction) I21.4 COPD (chronic obstructive pulmonary disease) J44.9 Hypoxia R09.02 Right ureteral stone N20.1 Acute bacterial pyelonephritis N10; B96.89 Leukocytosis D72.829 Leukocytosis type: unspecified Tachycardia R00.0 Acute alteration in mental status R41.82 Hypomagnesemia E83.42 Diabetes E11.9 Cholelithiasis K80.20 Obesity, morbid (more than 100 lbs over ideal weight or BMI > 40) E66.01 Abdominal pain R10.9 Sepsis A41.9 Acute kidney injury N17.9 Metabolic encephalopathy G93.41 BPH (benign prostatic hyperplasia) N40.0 Seizures R56.9 Sinus tachycardia R00.0 Obstructive uropathy N13.9 Gram-negative bacteremia R78.81
--- NOTE | 2023-02-15 16:53 | XRR_ITS ---
PROCEDURE INFORMATION: Exam: XR Chest Exam date and time: 02/15/2023 3:59 PM Age: 62 years old Clinical indication: Device placement; Picc; Additional info: Post picc placement TECHNIQUE: Imaging protocol: Radiologic exam of the chest. Views: 1 view. COMPARISON: CT chest abdpel w/*[id number] 02/10/2023 7:36 PM FINDINGS: Tubes, catheters and devices: Right-sided PICC line with tip in the superior vena cava. Lungs: See Heart/Mediastinum finding. Pleural spaces: Unremarkable. No pleural effusion. No pneumothorax. Heart/Mediastinum: Cardiomegaly and mild pulmonary vascular congestion. Bones/joints: Chronic right posterior rib fracture. XR/XR chest 1V portable [id number] IMPRESSION: 1. Right-sided PICC line with tip in the superior vena cava. 2. Cardiomegaly and mild pulmonary vascular congestion.
[2023-02-15 17:03] LABS: Glucose Point of Care 183 mg/dL (70-110)
--- NOTE | 2023-02-15 17:40 | PC.NURSE ---
COnsulted by house charge for picc placement. Consent obtained by myself an patient. RUE scanned with US an basilic vein was the best option. Vein was straight, 4mm, an free of visible clot. Pt draped in usual fashion, lidocaine injected, vein accessed, an picc floated into position. Chest xray obtained an picc doubled back down arm. Pt draped again in usual sterile fashion and picc reinserted an floated onto position. Xray obtained an picc in svc waiting on confirmation from radiology. EBL less then 5 ml. No bleeding no hematoma. Pt arm circumference is 38 cm at 10 cm above the ac fossa.
[2023-02-15 20:00] VITALS: BP 139/88; PULSE 87; RESP 18; TEMP 36.6; O2SAT 95
[2023-02-15 20:43] LABS: Glucose Point of Care 159 mg/dL (70-110)
[2023-02-16 04:00] VITALS: BP 157/87; PULSE 69; RESP 18; TEMP 36.5
[2023-02-16 05:24] LABS: Hematocrit 40.7 % (42.0-52.0); Mean Corpuscular HGB Conc 31.9 g/dL (30.0-36.0); Mean Corpuscular Hemoglobin 30.3 pg (28.0-34.0); Mean Corpuscular Volume 94.9 fl (80-94); Platelet Count 232 10^3/cmm (130-400); Red Blood Count 4.29 10^6/uL (4.1-5.3); Red Cell Distribution Width 12.9 % (12.1-15.1); White Blood Count 6.4 10^3/uL (4.0-10.0)
[2023-02-16 06:01] LABS: Absolute Eosinophils 0.1 10^3/cmm (0.0-0.7); Absolute Segmented Neutrophil 3.8 10/cmm (1.6-7.1); Eosinophils 2 %; Lymphocytes 29 %; Lymphocytes Absolute 1.9 10^3/cmm (1.2-3.4); Monocytes Absolute 0.4 10^3/cmm (0.1-0.6); Segmented Neutrophils 60 %; Total Cells Counted 100 (0-100)
[2023-02-16 06:02] LABS: Absolute Neutrophil 3.8 10^3/cmm (1.4-6.5); Giant Platelets Trace; Platelet Estimate Normal (Normal)
[2023-02-16 06:03] LABS: Toxic Granulation 1+
[2023-02-16 06:36] LABS: Glucose Point of Care 136 mg/dL (70-110)
[2023-02-16 07:33] VITALS: BP 151/87; PULSE 86; RESP 16; TEMP 36.7; O2SAT 93
[2023-02-16 07:48] LABS: Anion Gap 15.1 (5-19); Blood Urea Nitrogen 11 mg/dL (8-23); C Reactive Protein 48.3 mg/L (0.0-4.9); Calcium 8.9 mg/dL (8.5-10.5); Carbon Dioxide 28 mmol/L (22-29); Chloride 96 mmol/L (98-107); Glomerular Filtration Rate 114.3 mL/min (90-130); Glucose 146 mg/dL (65-115); NT Pro B Type Natriuretic Pept 132 pg/mL (0-125); Osmolality Calculated 282 mOsm/kg (285-295); Potassium 4.1 mmol/L (3.5-5.1); Sodium 135 mmol/L (136-145)
[2023-02-16] MEDS: pantoprazole DR 40 mg Tablet PO (09:36)
[2023-02-16] MEDS: cefTRIAXone 1,000 MG in sodium chloride 0.9% (plus) 50 ML 100 MG IV (09:36)
--- NOTE | 2023-02-16 10:06 | P.PN_ITS ---
Subjective Subjective: Urology follow-up Continues to improve. No more hallucinations. No fevers. Planning for discharge today. Reviewed the need to remove the stent and stone. We will plan on seeing him back in my office later this week for KUB and then schedule definitive treatment of the stone for next week. He will be continued on antibiotics at discharge. Vitals/I&O/Wt Last Vital Signs Temp 98.0 F 02/16/23 07:33 Pulse 86 02/16/23 07:33 Resp 16 02/16/23 07:33 BP 151/87 02/16/23 07:33 Pulse Ox 93 02/16/23 07:33 O2 Del Method Room Air 02/16/23 07:33 O2 Flow Rate 2 02/14/23 22:40 FiO2 2 02/14/23 08:30 02/15/23 02/16/23 02/16/23 22:59 06:59 14:59 Intake Total 1000 / 1770 240 / 240 Output Total 250 / 250 Balance 1000 / 1770 -250 / 1520 240 / 240 Physical Exam Narrative: Clear mentation. No acute distress. Pleasant cooperative throughout exam No labored respiration. Good movement of all extremities. Normal gait. Baseline Urinary Catheter Management: Sol: Cath Placed During This Visit: no Data 02/16/23 04:33 02/16/23 07:03 Micro: Microbiology 02/10/23 18:46 Blood Culture - Final Blood NO GROWTH AFTER 5 DAYS 02/10/23 18:55 Blood Culture - Final Blood Escherichia coli A&P Assessment and plan (1) Obstructive pyelonephritis: Doing well from an infectious perspective (2) Right distal ureteral calculus: Still in planning for definitive treatment of the right distal ureteral stone once he has recovered We will see him in clinic for preop check later this week. Plan for intervention next week if he continues to do well. (3) Acute kidney injury: Resolved Plan See above Attestations Medical Necessity Statement*: See attending Coding Level of Care Code Acute Code for [facility] Diagnoses Obstructive pyelonephritis N11.1 Right distal ureteral calculus N20.1 Acute kidney injury N17.9
--- NOTE | 2023-02-16 10:43 | PM.DCS ---
Discharge Providers Date of Admission: 02/10/23 21:00 Date of Discharge: February 16, 2023 Attending Provider at Admission: Annie Hernandes MD Attending Provider at Discharge: Yovani Jordan MD Consults: Urology: Dr. Fowler Diagnoses at Discharge Discharge Diagnosis (1) Obstructive pyelonephritis: Status: Acute (2) Right distal ureteral calculus: Status: Acute (3) Acute kidney injury: Status: Acute Reason for Visit Reason for Visit: low b/p; urinating blood Brief History: History as per HPI: Jose Canales is a 62 year old male with past medical history of right lower extremity cellulitis, type 2 diabetes mellitus, hypertension, nephrolithiasis, seizures, uncontrolled diabetes presented to the hospital today accompanied by his daughter for complaint of abdominal pain that is been going on for the last few days.? He has been having hematuria for the last few days and has been altered.? Daughter did report that patient's blood pressure was 70/30 at home and he was quite diaphoretic however on arrival to ER blood pressure was 140/80.? Patient was diaphoretic in the ER and abdomen appeared distended.? Very poor historian. Unable to give much details. Denies chest pain, sob, abdominal pain at this time, endorses chronic leg swelling.He is refusing rodriguez. Claims the? hospital has messed him up and given him a bill and did not treat him . Seems to be confused. Blood pressure on arrival 116/70, respiratory rate 25, tachycardic 126, temperature 99.6 saturating 2 L nasal cannula 91%.? He was given 1 L normal saline bolus.? WBC 23,000, hemoglobin 16.3, platelets 166, INR 1.19, sodium 131, potassium 4.1, anion gap 21.1, creatinine 1.4, lactic acid 1.9, BNP 718, delta troponin -4, procalcitonin 10.11, UA positive for 3+ protein, 1+ ketones, 3+ blood, positive nitrates, positive leukocyte esterase, greater than 100 WBC, 1+ bacteria, 4+ sediment.? CT abdomen pelvis showed acute right pyelonephritis with findings suspicious for small developing renal abscesses, 4 mm nonobstructing right distal ureteral stone no significant hydronephrosis, mild to moderate prostate enlargement with accompanying bladder wall thickening, hepatomegaly with diffuse fatty infiltration, cholelithiasis without evidence of acute cholecystitis. Hospital Course Hospital Course Patient was admitted to the hospital further evaluation and management of sepsis in setting of right obstructive pyelonephritis with concerning for a small renal abscess. He was started on broad-spectrum antibiotics. Urology was consulted. He underwent cystoscopy and right ureteral stent placement. He tolerated the procedure well. During hospitalization his blood culture and urine culture came back positive for E. coli. His antibiotics were tailored as per the culture sensitivities. Further blood work showed A1c of 7.5. Patient's hospitalization was otherwise unremarkable. He has been discharged in hemodynamically stable condition after PICC line has been placed on IV ceftriaxone for over 14-day course. He was found to have mildly elevated blood pressures for which he is advised to take amlodipine 5 mg daily and for diabetes he has been discharged on Januvia 100 mg daily. He was advised and counseled in detail for regular compliance with medications for stroke/CAD prevention, prevention of multiple infections. Patient verbalized understanding and is agreeable. He is to have weekly CBC and CMP while on antibiotics which are to be followed by his PCP. Physical Exam Const: COMMON NORMALS: no acute distress and patient oriented x3 EXAM LIMITATIONS: altered mental status NUTRITIONAL APPEARANCE: overweight ORIENTATION/CONSCIOUSNESS: Yes awake, Yes oriented to person, Yes oriented to place and Yes confused; not oriented to time Eye: COMMON NORMALS: Equal, round and reactive pupils present PUPIL: Yes Equal, round and reactive pupils present Resp: COMMON NORMALS: normal respiratory effort, No retractions, No use of accessory muscles and clear to auscultation bilaterally AUSCULTATION: clear to auscultation bilaterally Cardio: COMMON NORMALS: regular rate, regular rhythm, S1 normal heart sound present and S2 normal heart sound present RATE: regular rate RHYTHM: regular rhythm HEART SOUNDS: S1 normal heart sound present and S2 normal heart sound present GI: COMMON NORMALS: Normal to inspection, nondistended, normoactive bowel sounds present and non-tender Extremity: COMMON NORMALS: no pedal edema Neuro: COMMON NORMALS: patient oriented x3 SENSORIUM/ORIENTATION: Yes oriented to person, Yes oriented to place and No oriented to time Psych: COMMON NORMALS: mental status grossly normal Urinary Catheter Management: Rodriguez: Cath Placed During This Visit: no Discharge Data Studies Completed and Pending Completed Studies During Hospitalization Category Date Time Status CT chest abdomen pelvis [CT chest abdpel w/*[id number] Cat Scan 02/10/23 19:22 Completed ] Stat CT head wo con* [id number] Stat Cat Scan 02/10/23 19:23 Completed XR chest 1V portable [id number] Routine Exams 02/12/23 07:00 Completed XR chest 1V portable [id number] Stat Exams 02/10/23 18:04 Completed XR chest 1V portable [id number] Stat Exams 02/15/23 16:53 Completed CV. echo wo/w contrast [id number] Routine Ultrasound 02/14/23 15:14 Completed Pending at discharge Category Date Time Status BMP [Basic Metabolic Panel] AM LABS Lab 02/17/23 04:00 Ordered Blood Culture Stat Lab 02/12/23 08:57 Results Complete Blood Count w/Auto AM LABS Lab 02/17/23 04:00 Ordered Radiology Impressions Chest/Abdomen/Pelvis CT 02/10/23 19:22 IMPRESSION: No acute findings within the chest. IMPRESSION: 1. Acute right pyelonephritis with findings suspicious for small developing renal abscesses. 2. 4 mm nonobstructing right distal ureteral stone. No significant hydronephrosis. 3. Mild-moderate prostate enlargement with accompanying bladder wall thickening. 4. Hepatomegaly with diffuse fatty infiltration. 5. Cholelithiasis without evidence of acute cholecystitis. COMMENTS: Consistent with the [employer]'s Incidental Findings Committee white paper (J Am Seymour Radiol 2018): Any incidental renal lesion less than 1 cm or classified as too small to characterize, or any incidental cystic renal lesion characterized as simple-appearing, is likely benign. No follow-up imaging is recommended for these lesions per consensus recommendations based on imaging criteria. Head CT 02/10/23 19:23 IMPRESSION: No acute intracranial findings. C-Arm Fluoroscopy 02/11/23 10:30 IMPRESSION: Total fluoroscopy time 18.9 seconds Chest X-Ray 02/15/23 16:53 IMPRESSION: 1. Right-sided PICC line with tip in the superior vena cava. 2. Cardiomegaly and mild pulmonary vascular congestion. Laboratory Results WBC 6.4 10^3/uL (4.0-10.0) 02/16/23 04:33 Corrected WBC Cancelled 02/11/23 06:47 RBC 4.29 10^6/uL (4.1-5.3) 02/16/23 04:33 Hgb 13.0 g/dL (11.7-16.6) 02/16/23 04:33 Hct 40.7 % (42.0-52.0) L 02/16/23 04:33 MCV 94.9 fl (80-94) H 02/16/23 04:33 MCH 30.3 pg (28.0-34.0) 02/16/23 04:33 MCHC 31.9 g/dL (30.0-36.0) 02/16/23 04:33 RDW 12.9 % (12.1-15.1) 02/16/23 04:33 Plt Count 232 10^3/cmm (130-400) 02/16/23 04:33 MPV 11.0 fL (7.4-10.4) H 02/16/23 04:33 Gran % Cancelled 02/11/23 06:47 Neut % (Auto) 66.1 % 02/15/23 05:12 Lymph % (Auto) Not Reportable 02/16/23 04:33 [place] % (Auto) Not Reportable 02/16/23 04:33 Eos % (Auto) 2.1 % 02/15/23 05:12 Baso % (Auto) 0.4 % 02/15/23 05:12 Neut # (Auto) 3.78 10^3/uL (1.8-7.7) 02/15/23 05:12 Lymph # (Auto) Not Reportable 02/16/23 04:33 [place] # (Auto) Not Reportable 02/16/23 04:33 Eos # (Auto) 0.1 10^3/uL (0.0-0.8) 02/15/23 05:12 Baso # (Auto) 0.0 10^3/uL (0.0-0.1) 02/15/23 05:12 Absolute Gran (auto) Cancelled 02/11/23 06:47 Nucleated RBC % (auto) 0 % 02/15/23 05:12 Total Counted 100 (0-100) 02/16/23 04:33 Atypical Lymphs % 1.0 % (0-5) 02/16/23 04:33 Absolute Neutrophils 3.8 10^3/cmm (1.4-6.5) 02/16/23 04:33 Segmented Neutrophils 60 % 02/16/23 04:33 Abs Segm Neuts (Man) 3.8 10/cmm (1.6-7.1) 02/16/23 04:33 Band Neutrophils 0.0 % 02/16/23 04:33 Abs Band Neuts (Man) 0.0 10^3/cmm (0.0-1.2) 02/16/23 04:33 Absolute Lymphocytes 1.9 10^3/cmm (1.2-3.4) 02/16/23 04:33 Lymphocytes (Manual) 29 % 02/16/23 04:33 Monocytes (Manual) 7.0 % 02/16/23 04:33 Absolute Monocytes 0.4 10^3/cmm (0.1-0.6) 02/16/23 04:33 Eosinophils (Manual) 2 % 02/16/23 04:33 Absolute Eosinophils 0.1 10^3/cmm (0.0-0.7) 02/16/23 04:33 Basophils (Manual) 0.0 % 02/16/23 04:33 Absolute Basophils 0.0 10^3/cmm (0.0-0.2) 02/16/23 04:33 Metamyelocytes 1.0 % 02/16/23 04:33 Nucleated RBCs # 0.0 /100WBC 02/15/23 05:12 Toxic Granulation 1+ H 02/16/23 04:33 Platelet Estimate Normal (Normal) 02/16/23 04:33 Giant Platelets Trace 02/16/23 04:33 PT 15.50 SECONDS (12.1-14.9) H 02/10/23 18:05 INR 1.19 (0.8-1.2) 02/10/23 18:05 Specimen Type Arterial 02/13/23 10:24 Sample Site Radial, right 02/13/23 10:24 ABG pH 7.39 (7.35-7.45) 02/13/23 10:24 ABG pCO2 45.8 mmHg (35-45) H 02/13/23 10:24 ABG pO2 54.2 mmHg (80.0-100.0) L 02/13/23 10:24 ABG HCO3 27.6 mmol/L (22-26) H 02/13/23 10:24 ABG O2 Saturation 89.9 02/13/23 10:24 ABG Base Excess 2.0 mmol/L (-2.0-2.0) 02/13/23 10:24 Jhon Test Pos 02/13/23 10:24 A-a O2 Gradient 5.0 mmHg (5-10) 02/13/23 10:24 Hematocrit 40.3 % (42-52) L 02/13/23 10:24 Hgb O2 Saturation 87.6 % (95-100) L 02/13/23 10:24 Carboxyhemoglobin 1.7 %THgb (0.4-20.1) 02/13/23 10:24 Methemoglobin 0.9 % (0.4-1.5) 02/13/23 10:24 Total Hemoglobin 13.1 g/dL (14-18) L 02/13/23 10:24 Sodium 139.0 mmol/L (131-143) 02/13/23 10:24 Potassium 3.8 mmol/L (3.5-5.0) 02/13/23 10:24 Glucose 151.0 mg/dL (70-115) H 02/13/23 10:24 Ionized Calcium 1.1 mmol/L (1.1-1.4) 02/13/23 10:24 O2 Delivery Device Room air 02/13/23 10:24 FiO2 21.0 % 02/13/23 10:24 Mechanical Engineering Technician ID Monro 02/13/23 10:24 Sodium 135 mmol/L (136-145) L 02/16/23 07:03 Potassium 4.1 mmol/L (3.5-5.1) 02/16/23 07:03 Chloride 96 mmol/L (98-107) L 02/16/23 07:03 Carbon Dioxide 28 mmol/L (22-29) 02/16/23 07:03 Anion Gap 15.1 (5-19) 02/16/23 07:03 BUN 11 mg/dL (8-23) 02/16/23 07:03 Creatinine 0.7 mg/dL (0.7-1.2) 02/16/23 07:03 GFR Calculation 114.3 mL/min (90-130) 02/16/23 07:03 Glucose 146 mg/dL (65-115) H 02/16/23 07:03 POC Glucose 136 mg/dL (70-110) H 02/16/23 06:01 Estimat Average Glucose 169 02/11/23 08:07 Hemoglobin A1c 7.5 % (4.0-6.0) H 02/11/23 08:07 Calculated Osmolality 282 mOsm/kg (285-295) L 02/16/23 07:03 Lactic Acid 1.5 mmol/L (0.5-2.2) 02/10/23 20:30 Calcium 8.9 mg/dL (8.5-10.5) 02/16/23 07:03 Magnesium 1.8 mg/dL (1.7-2.3) 02/11/23 08:07 Total Bilirubin 0.7 mg/dL (0.15-1.2) 02/10/23 18:05 AST 28 U/L (0-40) 02/10/23 18:05 ALT 18 U/L (0-41) 02/10/23 18:05 Alkaline Phosphatase 68 U/L (40-130) 02/10/23 18:05 Ammonia 60 umol/L (16-60) 02/13/23 14:02 Troponin T Baseline 42 ng/L (0-15) H 02/10/23 18:05 Troponin T 120 Minute 37.38 ng/L (0-15) H 02/10/23 20:30 Delta Troponin T -4.62 ABS# (0-10) L 02/10/23 20:30 Troponin T Hi Sens 6Hr 34.25 ng/L (0-15) H 02/11/23 00:48 Troponin T Hi Sens 6Hr Delta -7.75 ng/L (0-12) L 02/11/23 00:48 C-Reactive Protein 48.3 mg/L (0.0-4.9) H 02/16/23 07:03 NT-Pro-B Natriuret Pep 132 pg/mL (0-125) H 02/16/23 07:03 Total Protein 7.4 g/dL (6.6-8.7) 02/10/23 18:05 Albumin 4.0 g/dL (3.5-5.2) 02/10/23 18:05 Globulin 3.4 g/dL (1.3-4.6) 02/10/23 18:05 Amylase 22 U/L (28-100) L 02/10/23 18:05 Lipase 10 U/L (13-60) L 02/10/23 18:05 Vitamin B12 356 pg/mL (232-1245) 02/10/23 20:30 Procalcitonin 1.50 ng/mL (0-0.5) H 02/14/23 04:38 TSH 1.43 uIU/mL (0.27-4.20) 02/10/23 20:30 Urine Color Aracely (Yellow) 02/10/23 19:00 Urine Appearance Cloudy (CLEAR) A 02/10/23 19:00 Urine pH 5 (5-7) 02/10/23 19:00 Ur Specific [place] 1.020 (1.005-1.030) 02/10/23 19:00 Urine Protein 3+ (Negative) H 02/10/23 19:00 Urine Glucose (UA) Norm (Normal) 02/10/23 19:00 Urine Ketones 1+ (Negative) H 02/10/23 19:00 Urine Blood 3+ (Negative) H 02/10/23 19:00 Urine Nitrate Positive (Negative) H 02/10/23 19:00 Urine Bilirubin 1+ (Negative) H 02/10/23 19:00 Urine Urobilinogen 1 mg/dL (Negative) H 02/10/23 19:00 Ur Leukocyte Esterase 1+ (Negative) H 02/10/23 19:00 Urine RBC 0-4 /hpf (0-2) H 02/10/23 19:00 Urine WBC >100 /hpf (0-5) H 02/10/23 19:00 Ur Squamous Epith Cells 10-15 /hpf (0-5) H 02/10/23 19:00 Amorphous Sediment 4+ /hpf 02/10/23 19:00 Urine Bacteria 1+ /hpf (NONE) H 02/10/23 19:00 Vancomycin Trough < 4.0 ug/mL (10-15) L 02/14/23 23:15 Vitals Last Vital Signs Temp 98.0 F 02/16/23 07:33 Pulse 86 02/16/23 07:33 Resp 16 02/16/23 07:33 BP 151/87 02/16/23 07:33 Pulse Ox 93 02/16/23 07:33 O2 Del Method Room Air 02/16/23 07:33 O2 Flow Rate 2 02/14/23 22:40 FiO2 2 02/14/23 08:30 Discharge Plan Discharge Patient Disposition: Home Condition: Stable Prescriptions: New pantoprazole 40 mg Tablet,Delayed Release (Dr/Ec) 40 mg PO DAILY Qty: 30 0RF Januvia 100 mg tablet 100 mg PO DAILY Qty: 30 0RF amlodipine 5 mg tablet 5 mg PO DAILY Qty: 30 0RF Continued hydrocodone-acetaminophen 5-325 mg Tablet 1 tab PO Q4H PRN (Reason: Pain) Discharge Orders: Discharge Order (Routine); Ordered 02/16/23 Ordered By: Nicolás Fowler Other Ambulatory Orders: Miscellaneous Procedure (Order) Timeframe: 1 Week Location: None Selected Ordered By: Yovani Jordan Referrals: Domi Martínez [Other] - 02/18/23 10:00 am (This is hospital follow up appointment. ) Tammie Mora FNP [Nurse Practitioner] - 03/10/23 9:45 am (This appt. is to establish care for new pcp.) Nicolás Fowler MD [Physician] - 02/19/23 (Will need a KUB first. Preop planning for next week.DR OFFICE WILL CALL WITH APPOINTMENT) Discharge Diet: Cardiac and Diabetic Discharge Activity: Increase activity as tolerated Patient Instructions: Amlodipine (By mouth), Pantoprazole (By mouth), Sitagliptin (By mouth), Urinary Tract Infection in Men (GEN), Opioid Safety, Pyelonephritis Activity Restrictions/Additional Instructions: Urology instructions: 1. Follow-up: We will see you back in my office later this week with a KUB and then make plans for definitive treatment of the stone sometime next week. 2. Its not unusual to have stent related symptoms which would include frequency, urgency, flank pain with voiding, blood in the urine. These will resolve once we take the stent out. 3. It is very important to continue your antibiotics until after we have dealt with the stone. CBC and CMP to be drawn by Catalina Miramontes on 02/23/23 and ask that results fax to Dr. Torres office and update Domi Martínez NP. Please remove PICC line after completion of IV antibiotic course. Weekly PICC line dressings. Discharge Attestations Time Spent in Discharge Care*: greater than 30 min Specific Discharge Activities: educating patient, educating and/or supporting family/caregiver, discussing with pcp/other providers, discussing with therapeutic case manager/social workers/dc planners, documenting/other paperwork and evaluating patient/reviewing data Status at Discharge: Cognitive status at discharge: cognitively intact, Behavioral status at discharge: cooperative, Functional status at discharge: independent ambulation, Overall status at discharge: patient is back to baseline Quality Metrics Clinical Quality Measures [ No reported AMI, CVA or VTE this stay] Coding Level of Care Code 26044 Total time (in minutes) for Discharge: 50 Diagnoses Obstructive pyelonephritis N11.1 Right distal ureteral calculus N20.1 Acute kidney injury N17.9
--- NOTE | 2023-02-16 11:08 | PC.NURSE ---
Discharge Note Patient discharged to home via private vehicle accompanied by significant other. Discharge instructions reviewed with patient and/or healthcare representative. Mobile pharmacy medications and/or prescriptions provided. Belongings/home medications returned.
[2023-02-16 11:09] VITALS: BP 151/87; PULSE 86; RESP 16; TEMP 36.7; O2SAT 93
== END 2023-02-16 11:14 | disposition home or self-care (01) | DRG 853 ==
LOC: ER 21:00 → MEDSURG 21:39
PROVIDERS: Family Medicine; Urology; Admitting Provider Internal Medicine; Emergency Provider Emergency Medicine; Visit Provider Student in an Organized Health Care Education/Training Program
PROC: 0TJB8ZZ Inspection of Bladder, Via Natural or Artificial Opening Endoscopic (ICD-10-PCS; CPT 52000; principal; 2023-02-11 10:30)
PROC: 0T768DZ Dilation of Right Ureter with Intraluminal Device, Via Natural or Artificial Opening Endoscopic (ICD-10-PCS; CPT 50605; 2023-02-11 10:30)
DX: A41.9 Sepsis, unspecified organism (principal); G93.41 Metabolic encephalopathy; I21.A1 Myocardial infarction type 2; N20.1 Calculus of ureter; N17.9 Acute kidney failure, unspecified; Z68.41 Body mass index [BMI] 40.0-44.9, adult; N39.0 Urinary tract infection, site not specified; Z87.442 Personal history of urinary calculi; Z87.440 Personal history of urinary (tract) infections; B96.20 Unspecified Escherichia coli [E. coli] as the cause of diseases classified elsewhere; E11.65 Type 2 diabetes mellitus with hyperglycemia; I10 Essential (primary) hypertension; Z79.891 Long term (current) use of opiate analgesic; N40.0 Benign prostatic hyperplasia without lower urinary tract symptoms; K76.0 Fatty (change of) liver, not elsewhere classified; K80.20 Calculus of gallbladder without cholecystitis without obstruction; R31.0 Gross hematuria; E66.01 Morbid (severe) obesity due to excess calories; F17.200 Nicotine dependence, unspecified, uncomplicated
CPT/HCPCS: 36415; 36416; 36569; 36592; 36600; 70450; 71045; 71260; 74177; 76000; 80048; 80051; 80053; 80202; 81001; 82140; 82150; 82330; 82607; 82805; 82962; 83036; 83605; 83690; 83735; 83880; 84145; 84443; 84484; 85007; 85025; 85610; 86140; 87040; 87077; 87086; 87150; 87186; 87205; 93005; 94660; 94664; 94762; 96365; 96367; 96372; 96375; 99285; C8929; J0330; J0696; J1100; J1650; J1815; J1956; J2060; J2270; J2405; J2704; J3010; J3370; J3475; J3490; J7030; Q9956; Q9967

== ENCOUNTER 2023-02-19 09:39 | Outpatient (CLI) | payer SELFPAY ==
--- NOTE | 2023-02-19 09:54 | XRR_ITS ---
PROCEDURE INFORMATION: Exam: XR Abdomen Exam date and time: 02/19/2023 10:09 AM Age: 62 years old Clinical indication: Condition or disease; Kidney or ureter condition; Calculus (stone) in kidney and calculus (stone) in ureter; Prior surgery; Surgery type: Appendix; Additional info: Stones, kub ozh 02/19/23 @ 10:00 am appt to follow TECHNIQUE: Imaging protocol: Radiologic exam of the abdomen. Views: Frontal supine view of the abdomen. 1 View. COMPARISON: CT chest abdpel w/*[id number] 02/10/2023 7:36 PM FINDINGS: Tubes, catheters and devices: A right ureteral stent projects in satisfactory position. There is a 5 mm distal ureteral calculus along the stent. No calcifications are seen in the projection of the left ureter. Gastrointestinal tract: Normal. No bowel dilation. Bones/joints: Unremarkable. XR/XR KUB [id number] IMPRESSION: 1. Satisfactory position of the right ureteral stent. 2. A 5 mm distal right ureteral calculus is present along the stent.
== END 2023-02-19 09:40 | disposition home or self-care (01) ==
PROVIDERS: PCP Urology; Visit Provider Urology
DX: N20.9 Urinary calculus, unspecified (principal)
CPT/HCPCS: 74018

== ENCOUNTER 2023-02-23 07:04 | Day surgery (SDC) | payer SELFPAY ==
[2023-02-20 13:00] VITALS: BMI 41.2
[2023-02-23] VITALS (12 sets, daily range): BP systolic 128–181; BP diastolic 85–109; PULSE 92–105; RESP 12–26; TEMP 36.3–36.9; O2SAT 89–95
--- NOTE | 2023-02-23 05:56 | P.HPUD_ITS ---
Surgery/Procedure H&P Update DATE OF PROCEDURE: February 23, 2023 DATE H&P PERFORMED: 02/19/23 H&P UPDATE INFORMATION: I have reviewed H&P completed within last 30 days, I have examined patient prior to procedure, No changes to prior documentation and H&P is in [facility] [place] on date indicated PLANNED PROCEDURE: Operation Date: 02/23/23 09:00 Proposed Procedures p CYSTOSCOPY RIGHT RETROGRADE, URETEROSCOPY, LASER,STENT [id number] 54573 MOD 26,N20.1 N11.1(Not Applicable) - Nicolás Fowler MD s Retrograde Pyelogram(Right) - MD lauro Hodges Ureteroscopy(Right) - MD lauro Hodges Laser Lithotripsy(Right) - MD lauro Hodges Ureteral Stent Placement(Right) - Nicolás Fowler MD
--- NOTE | 2023-02-23 07:10 | XR_ITS ---
WS: [id number] Exam: XR KUB [id number] Date/Time of Exam: 02/23/2023 7:35 AM Reason For Exam: Preop right ureteroscopy No bowel obstruction or free air. A right-sided ureteral stent is in place appearing to be in satisfa ctory location. Again noted is a 5 mm calcification identified along the course of the stent in the l ower ureter. This is thought to represent a ureteral stone. It is unchanged in position. No sign of o rgan enlargement. Regional bony structures appear normal. XR/XR KUB [id number] IMPRESSION: 1. No acute finding. 2. Right-sided ureteral stent appearing to be in satisfactory location. 5 mm ca lcification seen along the course of the stent in the lower right ureter. This is thought to represent the patient's known ureteral stone.
--- NOTE | 2023-02-23 07:10 | SC_ITS ---
WS: [id number] Exam: C-arm FL for Urology Date/Time of Exam: 02/23/2023 2:42 PM Reason For Exam: Right ureteroscopy Single anterior posterior C-arm image of the mid right abdomen is obtained for intraoperative purpose s. The image depicts the upper portion of a right ureteral retrograde catheter in place. No other sig nificant finding.
[2023-02-23 08:09] LABS: Basophils % 0.3 %; Eosinophils # 0.1 10^3/uL (0.0-0.8); Eosinophils % 1.3 %; Hematocrit 44.5 % (42.0-52.0); Lymphocytes # 1.8 10^3/uL (0.8-4.8); Lymphocytes % 20.4 %; Mean Corpuscular HGB Conc 33.7 g/dL (30.0-36.0); Mean Corpuscular Hemoglobin 31.1 pg (28.0-34.0); Mean Corpuscular Volume 92.3 fl (80-94); Mean Platelet Volume 9.9 fL (7.4-10.4); Monocytes # 0.7 10^3/uL (0.2-0.9); Monocytes % 7.4 %; Neutrophils # 6.19 10^3/uL (1.8-7.7); Neutrophils % 68.5 %; Nucleated Red Blood Cells % 0 %; Platelet Count 292 10^3/cmm (130-400); Red Blood Count 4.82 10^6/uL (4.1-5.3); Red Cell Distribution Width 12.7 % (12.1-15.1)
[2023-02-23] MEDS: sodium chloride 0.9% 1,000 ML 30 ML IV (08:23)
[2023-02-23 08:26] LABS: Alanine Aminotransferase 26 U/L (0-41); Albumin Level 4.1 g/dL (3.5-5.2); Alkaline Phosphatase 83 U/L (40-130); Blood Urea Nitrogen 17 mg/dL (8-23); Calcium 9.3 mg/dL (8.5-10.5); Carbon Dioxide 26 mmol/L (22-29); Chloride 97 mmol/L (98-107); Creatinine Clr Calc Pharmacy 139.6101; Globulin 3.5 g/dL (1.3-4.6); Glomerular Filtration Rate 114.3 mL/min (90-130); Glucose 191 mg/dL (65-115); Osmolality Calculated 287 mOsm/kg (285-295); Sodium 135 mmol/L (136-145); Total Bilirubin 0.2 mg/dL (0.15-1.2); Total Protein 7.6 g/dL (6.6-8.7)
--- NOTE | 2023-02-23 08:26 | P.ANESASSM_ITS ---
Pre-Anesthetic Assessment Height/Weight: Height 1.73 m Weight 122.924 kg Temp Pulse Resp BP Pulse Ox O2 Del Method 98 F 92 18 173/108 95 Room Air 02/23/23 07:55 02/23/23 07:55 02/23/23 07:55 02/23/23 07:55 02/23/23 07:55 02/23/23 07:55 Preop Diagnosis: Distal ureteral stone status post emergency stenting obstructive pyelo Operation Date: 02/23/23 09:00 Proposed Procedures p CYSTOSCOPY RIGHT RETROGRADE, URETEROSCOPY, LASER,STENT [id number] MOD 26,N20.1 N11.1(Not Applicable) - Nicolás Fowler MD s Retrograde Pyelogram(Right) - Nicolás Fowler MD s Ureteroscopy(Right) - Nicolás Fowler MD s Laser Lithotripsy(Right) - Nicolás Fowler MD s Ureteral Stent Placement(Right) - Nicolás Fowler MD Familial anesthetic complications: none Was Beta Lena taken within 24 hours: N/A Was Clonidine taken within 24 hours: N/A Last intake: Intake Last Liquid Date 02/22/23 Last Liquid Time 18:00 Last Solid Date 02/22/23 Last Solid Time 18:00 Social Tobacco 1 ppd pack(s) per day Exam alert, oriented x 3, clear to auscultation bilaterally and regular rate & rhythm Airway Submandibular: within normal limits Cervical ROM: within normal limits Mallampati: Class III Dentition: chipped and full Pulmonary Chronic Obstructive Pulmonary Disease CV/HEM Hypertension None reported history of septic shock and dialysis currently denies issues. Hepatic None reported GI Gastroesophageal Reflux Disease Metabolic Diabetes Mellitus and Morbid Obesity [facility] [place] None reported Neuropsych Anxiety and Seizure (childhood no issues since infancy) Anesthetic Plan ASA status: 3 Anesthesia: General Medications/Allergies Home Medications Medication Instructions Recorded Confirmed Last Taken Type amlodipine 5 mg tablet 5 mg PO DAILY #30 tabs 02/16/23 02/20/23 02/22/23 Rx pantoprazole 40 mg tablet,delayed 40 mg PO DAILY #30 tabs 02/16/23 02/20/23 02/23/23 Rx release sitagliptin phosphate 100 mg 100 mg PO DAILY #30 tabs 02/16/23 02/20/23 02/23/23 Rx tablet (Januvia) ceftriaxone 2 gram intravenous 2 g IV DAILY 02/23/23 02/23/23 02/23/23 History piggyback Allergies Allergy/AdvReac Type Severity Reaction Status Date / Time piperacillin [From Zosyn] Allergy ALGY-Bliste Verified 02/23/23 07:49 r tazobactam [From Zosyn] Allergy ALGY-Bliste Verified 02/23/23 07:49 r Current Medications Generic Name Dose Route Start Last Admin Trade Name Freq PRN Reason Stop Dose Admin Sodium Chloride 1,000 mls @ 30 mls/hr 02/23/23 07:15 02/23/23 08:23 Sodium Chloride 0.9% IV 02/24/23 07:14 30 mls/hr .Q24H STEPHANIE Administration PFSH Anesthesia Medical History Abdominal pain Cellulitis Right lower extremity Cholelithiasis Diabetes mellitus, type II Hypertension Nephrolithiasis Obesity, morbid (more than 100 lbs over ideal weight or BMI > 40) Seizures Urolithiasis Multi stone former Surgical History History of appendectomy as a child History of colonoscopy within 5 yrs Family History Father , age Late 80's Diabetes Mother Diabetes Brother Diabetes Social History Smoking and tobacco status: current some day smoker Alcohol intake: current Alcohol intake frequency: holidays/special occasions only Substance/Drug Use: never Marital status: Current occupational status: unemployed Data Anesthesia 02/23/23 07:51 02/23/23 07:51 Short CBC 02/23/23 Range/Units 07:51 WBC 9.0 (4.0-10.0) 10^3/uL Hgb 15.0 (11.7-16.6) g/dL Hct 44.5 (42.0-52.0) % MCV 92.3 (80-94) fl Plt Count 292 (130-400) 10^3/cmm Neut % (Auto) 68.5 % Neut # (Auto) 6.19 (1.8-7.7) 10^3/uL Cardiac Studies: Echocardiogram 02/14/23 Sestamibi Stress Test (Cardiology) 08/02
[2023-02-23 08:28] LABS: Anion Gap 16.8 (5-19); Aspartate Amino Transferase 18 U/L (0-40); Potassium 4.8 mmol/L (3.5-5.1)
--- NOTE | 2023-02-23 08:58 | P.OP_ITS ---
Operative Report Date of procedure: February 23, 2023 Pre-op diagnosis: Distal ureteral stone status post emergency stenting obstructive pyelo Post-op diagnosis: Distal ureteral stone status post emergency stenting obstructive pyelo Procedure done: 1. Cystoscopy, RIGHT ureteral stent removal 2. RIGHT: Retrograde ureteropyelogram, ureterorenoscopy, laser lithotripsy, stent replacement. Implants: 6 [place] by 28 cm double-pigtail stent left indwelling Specimens removed/disposition: Right ureteral stone Pathology: Right ureteral stone Surgeon: Malcolm Estimated blood loss: None Urine output: Not measured Complications: None Findings: Anesthesia: General Condition: Stable Disposition: PACU Intraoperative findings: * Ureter was nicely dilated. No stone was identified in the ureter. There is no evidence that the stone had been withdrawn with the stent. It is felt that most likely the stone had passed prior to the procedure. I did review the KUB again and it was not definitive that the stone was still there * Multiple small stones were identified in the lower pole calyces and fragmented with a 200 ?m thulium superpulse laser fiber no obvious substantial fragments remained at the completion Brief History: Haris is a very pleasant 62-year-old white male recently diagnosed with obstructive pyelonephritis secondary to 5 mm distal ureteral stone and UTI. An emergency stent was placed. He was treated with IV antibiotics and discharged with continued course of Rocephin. Back now for attempt at definitive therapy of what appeared to be residual stone on follow-up KUBs Procedure: After routine preoperative evaluation examination and obtaining of informed consent he was taken to the operating suite on 02/23/2023 where general anesthesia was administered without difficulty after appropriate timeout was performed, SCDs confirmed to be functioning, preoperative antibiotics administered, beta-ayesha protocol confirmed. Prepped and draped in usual sterile fashion in dorsolithotomy position pain careful attention to avoiding pressure points. 21 [place]arian cystoscope with 30 degree lens was introduced into the urethral meatus and advanced into the bladder without difficulty. The bladder was trabeculated. Large prostate. No stones were seen in the bladder. Bladder was examined with both 30 and 70 degree lenses. There was some typical stent inflammatory changes at the right ureteral orifice and the stent was in expected position. A flexible tip guidewire was then advanced up the RIGHT ureter next to the stent into the upper pole calyx. The stent was then grasped with grasping forceps and removed without difficulty. A semirigid ureteroscope was then advanced up the right ureter next to the guidewire. The area where the stone had been located was easily identifiable as somewhat inflamed with some dilation to that point proximally. Scope was passed all the way up to the UPJ. No stone was identified. The bladder was then reinspected again with a cystoscope and no fragment was identified. Considering the possibility of proximal migration with passage of the wire, a second guidewire was passed and a 24 cm ureteral access sheath was advanced over the working wire to the hub without difficulty under fluoroscopic monitoring. A flexible ureteroscope was advanced over the working wire through the sheath up the ureter and the ureter was again carefully inspected with passage of the scope. No stones were seen in the ureter. The pyelocalyceal system was carefully inspected and there was a collection of stones in the lower pole. It was not clear as to whether 1 of these was actually the previously located ureteral stone but they did look smaller than the one that was identified on CT scan. There was also a couple other smaller stones in the midpole calyx. A 200 ?m thulium superpulse laser fiber was then utilized to fragment the stones. At the completion there was mostly just sand. No significant particles remained. The sheath was backed onto the hub of the scope, the guidewire removed, and the ureter again was carefully inspected as the scope was slowly withdrawn. Confirmation of no stone in the ureter was again made. It was decided to leave the temporary stent in. The cystoscope was then backloaded over the safety wire and a 6 [place] by 28 cm double-pigtail stent was advanced over the guidewire through the cystoscope into appropriate position as confirmed via fluoroscopy and cystoscopy. Stent was confirmed to be draining. The bladder was again reinspected and no stones were seen. Scope was removed and the procedure was completed. He tolerated the procedure well without complications and was awakened in the operating room and returned to PACU in stable conditions. PLANS: 1. Plan on cystoscopy and stent removal in 1 week 2. Complete antibiotic therapy
[2023-02-23] MEDS: iohexol 300 mg/mL 50 mL Btl XX (09:42)
--- NOTE | 2023-02-23 10:43 | SUR.PHASEI ---
patient into pacu with oral airway in place and simple mask with o2 sats at 94%. patient asleep, no pain per faces.
--- NOTE | 2023-02-23 10:45 | SUR.PHASEI ---
patient awake but still very drowsy. oral airway removed, remains on simple mask with sat at 95%.
[2023-02-23] MEDS: labetalol 5 mg/mL SDV 20mL IVP (11:01)
--- NOTE | 2023-02-23 15:25 | ANE.PACU2 ---
Inpatient post-anesthesia follow up: Airway intact: Yes Vital signs: Temperature 97.8 F Pulse Rate 100 Respiratory Rate 18 Blood Pressure 142/86 Pulse Oximetry 90 Oxygen Delivery Me thod Room Air Oxygen Flow Rate 2 Fraction of Inspir ed Oxygen Hydration adequate: Yes Pain level: 2 Mental status: Baseline
== END 2023-02-23 11:49 | disposition home or self-care (01) ==
PROVIDERS: PCP Urology; Visit Provider Urology
PROC: 0TJB8ZZ Inspection of Bladder, Via Natural or Artificial Opening Endoscopic (ICD-10-PCS; CPT 52000; principal; 2023-02-23 09:00)
PROC: (CPT 74420; 2023-02-23 09:00)
PROC: 0TJ98ZZ Inspection of Ureter, Via Natural or Artificial Opening Endoscopic (ICD-10-PCS; CPT 52351; 2023-02-23 09:00)
PROC: (CPT 52353; 2023-02-23 09:00)
PROC: (CPT 50605; 2023-02-23 09:00)
PROC: (CPT 52353; 2023-02-23 09:00)
DX: N20.1 Calculus of ureter (principal); E11.9 Type 2 diabetes mellitus without complications; I10 Essential (primary) hypertension; J44.9 Chronic obstructive pulmonary disease, unspecified; K21.9 Gastro-esophageal reflux disease without esophagitis; E66.01 Morbid (severe) obesity due to excess calories; Z68.41 Body mass index [BMI] 40.0-44.9, adult; F17.200 Nicotine dependence, unspecified, uncomplicated; Z79.899 Other long term (current) drug therapy; Z88.0 Allergy status to penicillin
CPT/HCPCS: 52353; 74018; 76000; 80053; 85025; J0330; J1100; J2405; J2704; J3010; J3490; J7030; Q9967

== ENCOUNTER 2023-03-03 14:01 | Outpatient (CLI) | payer SELFPAY ==
--- NOTE | 2023-03-03 14:14 | XR_ITS ---
WS: [id number] XR KUB [id number] REASON FOR EXAM: STONES FINDINGS: Right ureteral stent in proper position and configuration. No urinary tract calculi are identified. Calculus identified along the distal aspect of the right ure teral stent on 02/19/2023 is no longer identifiable. XR/XR KUB [id number] IMPRESSION: Right ureteral stent as above. No urinary tract calculi identified.
== END 2023-03-03 14:02 | disposition home or self-care (01) ==
PROVIDERS: PCP Urology; Visit Provider Urology
DX: N13.9 Obstructive and reflux uropathy, unspecified (principal)
CPT/HCPCS: 74018